=== PATIENT | female | born 1965 | race Caucasian/White ===

== ENCOUNTER 2021-02-24 14:20 | Inpatient (IN) | payer BC ==
[~2021-02-24] VITALS: Ht 154.9 cm; Wt 53.5 kg
[2021-02-24] MEDS ORDERED: NS 1,000 ML IV ONE (15:10)
[2021-02-24] MEDS ORDERED: COMBIVENT RESPIMAT 100-20MCG INHALER 4GM INH ONE (15:10)
[2021-02-24] MEDS ORDERED: methylPREDNISolone 125MG 2ML VIAL IV ONE (15:10)
[2021-02-24] MEDS ORDERED: AZITHROMYCIN INJ 500 MG, VIAL MATE ADAPTER 1 EACH in NS 250 ML IV ONE (15:20)
[2021-02-24] MEDS ORDERED: cefTRIAXone SOD 1 GM in D5W MINI-BAG PLUS 50 ML IV ONE (15:20)
[2021-02-24 15:33] LABS: ABG BASE EXCESS 1.5 (-2.0-2.0); ABG HCO3 23.4 MEQ/L (22.0-26.0); ABG O2 SATURATION 87.4 % (95.0-99.0); ABG PARTIAL PRESSURE CO2 28.9 mmHg (35.0-45.0); ABG PARTIAL PRESSURE O2 50.1 mmHg (75.0-100.0); ABG STANDARD HCO3 25.6 MEQ/L (22.0-26.0); ABG TOTAL CO2 24.3 MEQ/L (22.0-29.0); ABG pH (ARTERIAL) 7.527 UNITS (7.350-7.450)
[2021-02-24] MEDS ORDERED: OMEP-218 PO (16:13)
[2021-02-24] MEDS ORDERED: FAMO40TA3 PO (16:13)
[2021-02-24] MEDS ORDERED: PARO20TA3 PO (16:13)
[2021-02-24] MEDS ORDERED: MONT10TA10 PO (16:13)
[2021-02-24] MEDS ORDERED: LORA-674 PO (16:13)
[2021-02-24] MEDS ORDERED: HOME MED LIST COMPLETE! XX SCH (16:15)
[2021-02-24 16:16] LABS: HEMATOCRIT 35.8 % (36.0-47.0); HEMOGLOBIN 11.8 g/dl (12.0-15.5); MEAN CORPUSCULAR HEMOGLOBIN 32.9 pg (27.0-33.0); MEAN CORPUSCULAR VOLUME 99.7 fl (80.0-96.0); PLATELET COUNT, AUTOMATED 466 10^3/uL (150-450); RED BLOOD COUNT 3.59 10^6/uL (4.00-5.40)
[2021-02-24 16:20] LABS: WHITE BLOOD COUNT 29.1 10^3/uL (4.0-10.0)
[2021-02-24 16:47] LABS: RSV AMPLIFICATION NEGATIVE (NEGATIVE)
[2021-02-24] MEDS: ENOXAPARIN 40MG/0.4ML SYRINGE (J1650 PER 10MG) SC SCH (17:14)
[2021-02-24 17:44] LABS: ATYPICAL LYMPH 9 % (0-5); BASOPHILS 1 % (0-1); LYMPHOCYTES 4 % (16-44); MONOCYTES 10 % (0-5); NEUTROPHILS 71 % (28-66); PLATELET ESTIMATE INCREASED (NORMAL)
--- NOTE | 2021-02-24 17:55 | REPVR ---
PROCEDURE INFORMATION: Exam: CT Chest Without Contrast; Diagnostic Exam date and time: 02/24/2021 4:59 PM Age: 55 years old Clinical indication: Abnormal findings; Abnormal radiologic exam of lung or chest; Additional info: Abnl cxr TECHNIQUE: Imaging protocol: Diagnostic computed tomography of the chest without contrast. 3D rendering (Not supervised by radiologist): MIP and/or 3D reconstructed images were created by the technologist. Radiation optimization: All CT scans at this facility use at least one of these dose optimization techniques: automated exposure control; mA and/or kV adjustment per patient size (includes targeted exams where dose is matched to clinical indication); or iterative reconstruction. COMPARISON: CR CHEST 2 VIEW 02/24/2021 1:05 PM FINDINGS: Lungs: Pulmonary vascular/interstitial pattern does not suggest active pulmonary edema. Lungs demonstrate multifocal airspace infiltrates bilaterally, most confluent involving the right middle lobe and right lower lobe with areas of dense bronchiectasis. Ill-defined nodular opacities are seen in both lungs, suggesting most likely inflammatory or infectious process. Pleural spaces: Small dependent right pleural effusion. No pneumothorax. Heart: No overt cardiac enlargement or abnormal volume of pericardial fluid. Aorta: Mild thoracic aortic ectasia with no focal aneurysm. Lymph nodes: Mildly prominent mediastinal and right hilar lymph nodes measuring up to 16 mm. Bones/joints: Bony structures show no acute fracture or destructive process. Soft tissues: Unremarkable. Other findings: Limited study without IV contrast. IMPRESSION: 1. Multifocal airspace filling process most confluent in the right lower lobe and right middle lobe suggesting multifocal pneumonia bilaterally with reactive lymphadenopathy. 2. Multiple bilateral ill-defined lung nodules, likely infectious or inflammatory, but follow-up will be warranted. Electronically signed by: Miguel A Douglas On 02/24/2021 17:54:45 PM
[2021-02-24 20:09] LABS: ALT/SGPT 129 U/L (12-78); BILIRUBIN,TOTAL 0.4 MG/DL (0.2-1.0); BLOOD UREA NITROGEN 13 MG/DL (7-18); CALCIUM LEVEL 8.4 MG/DL (8.5-10.1); CARBON DIOXIDE LEVEL 24 MEQ/L (21-32); CHLORIDE LEVEL 102 MEQ/L (98-107); CREATININE FOR GFR 0.56 MG/DL (0.55-1.30); GLOMERULAR FILTRATION RATE > 60.0 (>51); GLUCOSE, FASTING 189 MG/DL (70-100); SODIUM LEVEL 134 MEQ/L (136-145)
[2021-02-24] MEDS ORDERED: PARoxetine 20MG TABLET PO SCH (21:00)
[2021-02-24] MEDS: IPRATROPIUM 0.5MG/ALBUTEROL 2.5MG INH SOL UD 3ML (DUONEB) NEB SCH (21:15)
[2021-02-24 22:40] VITALS: BP 102/56
[2021-02-24] MEDS: DOXYCYCLINE HYCLATE 100 MG in D5W MINI-BAG PLUS 100 ML IV SCH (22:59)
[2021-02-24] MEDS: OMEPRAZOLE 20 MG CAP PO SCH (22:59)
[2021-02-25] VITALS (8 sets, daily range): BP systolic 100–123; BP diastolic 55–67
[2021-02-25] MEDS: IPRATROPIUM 0.5MG/ALBUTEROL 2.5MG INH SOL UD 3ML (DUONEB) NEB SCH ×4 (00:05→20:17)
[2021-02-25] MEDS: IPRATROPIUM 0.5MG/ALBUTEROL 2.5MG INH SOL UD 3ML (DUONEB) NEB PRN (04:39)
[2021-02-25] MEDS: cefTRIAXone SOD 2 GM in D5W MINI-BAG PLUS 50 ML IV SCH (06:16)
[2021-02-25 07:38] LABS: BASO % 0.2 % (0.0-1.0); HEMATOCRIT 32.8 % (36.0-47.0); HEMOGLOBIN 10.7 g/dl (12.0-15.5); LYMPH % 12.2 % (24.0-44.0); MEAN CORPUSCULAR HGB CONC 32.6 g/dl (32.0-36.5); MEAN CORPUSCULAR VOLUME 98.2 fl (80.0-96.0); MONO # 1.4 10^3/uL (0.0-0.8); MONO % 5.7 % (2.0-8.0); NEUTROPHILS # 19.9 10^3/uL (1.5-8.5); NEUTROPHILS % 80.6 % (36.0-66.0); PLATELET COUNT, AUTOMATED 456 10^3/uL (150-450); RED BLOOD COUNT 3.34 10^6/uL (4.00-5.40); WHITE BLOOD COUNT 24.7 10^3/uL (4.0-10.0)
[2021-02-25 08:11] LABS: BLOOD UREA NITROGEN 13 MG/DL (7-18); CALCIUM LEVEL 8.7 MG/DL (8.5-10.1); CARBON DIOXIDE LEVEL 24 MEQ/L (21-32); CHLORIDE LEVEL 104 MEQ/L (98-107); CREATININE FOR GFR 0.41 MG/DL (0.55-1.30); GLOMERULAR FILTRATION RATE > 60.0 (>51); GLUCOSE, FASTING 152 MG/DL (70-100); POTASSIUM SERUM 3.8 MEQ/L (3.5-5.1); SODIUM LEVEL 139 MEQ/L (136-145)
[2021-02-25] MEDS ORDERED: methylPREDNISolone 40MG 1ML VIAL IV SCH (09:00)
[2021-02-25] MEDS: OMEPRAZOLE 20 MG CAP PO SCH ×2 (09:28→20:30)
[2021-02-25] MEDS: ENOXAPARIN 40MG/0.4ML SYRINGE (J1650 PER 10MG) SC SCH (09:28)
[2021-02-25] MEDS: DOXYCYCLINE HYCLATE 100 MG in D5W MINI-BAG PLUS 100 ML IV SCH ×2 (09:28→20:30)
--- NOTE | 2021-02-25 11:07 | IPN ---
PROGRESS NOTE DATE: 02/25/2021 SUBJECTIVE: Bette is transferred to PCU. She became hypoxemic overnight. CT scan showed the multifocal pneumonia, multiple bilateral ill-defined lung nodules that will require follow-up. She feels about the same as yesterday. She is still coughing bringing frothy sputum. OBJECTIVE: VITAL SIGNS: Afebrile. Vital signs stable. O2 saturation 89% on 20% Vapotherm. GENERAL APPEARANCE: Alert and conversant. Does not look dyspneic. LUNGS: Expiratory wheezes and scattered rhonchi. HEART: Regular rhythm. ABDOMEN: Soft and nontender. No peripheral edema. LABORATORY DATA: White count is 24,000 on steroids, hemoglobin 10.7, platelets 456,000. Sodium 139, potassium 3.8, BUN 13, creatinine 0.4, glucose 152. Procalcitonin 30.6. IMPRESSION: 1. Multifocal pneumonia treated with Rocephin and doxycycline day #2 of these. Nebulized bronchodilator is ordered. 2. Chronic obstructive pulmonary disease (COPD). She looks emphysematous. We will increase the steroid to 40 mg b.i.d. 3. Pulmonary nodules. She will need outpatient follow-up with repeat CT scanning. 4. History of anxiety/depression. Continue her Paxil. 5. Tobacco abuse. The importance of smoking cessation has been discussed.
--- NOTE | 2021-02-25 20:03 | ECGEPIP ---
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 Order Number: [id number] Reading MD: Noy Kruse Measurements Intervals [place] Rate: 108 P: 65 VA: 116 QRS: 51 QRSD: 80 T: 51 QT: 324 QTc: 434 Interpretive Statements Sinus tachycardia Minimal voltage criteria for LVH, may be normal variant ( Sokolow-Gonzalez ) No prior Electronically Signed on 02-25-2021 20:03:00 EDT by Noy Kruse
[2021-02-25] MEDS: methylPREDNISolone 40MG 1ML VIAL IV SCH (20:29)
[2021-02-25] MEDS: PARoxetine 10MG TABLET PO SCH (21:44)
[2021-02-26] VITALS: BP 124/63
[2021-02-26] MEDS: IPRATROPIUM 0.5MG/ALBUTEROL 2.5MG INH SOL UD 3ML (DUONEB) NEB SCH ×4 (00:56→20:17)
[2021-02-26 04:00] VITALS: BP 110/63
[2021-02-26] MEDS: cefTRIAXone SOD 2 GM in D5W MINI-BAG PLUS 50 ML IV SCH (05:26)
[2021-02-26 06:21] LABS: HEMATOCRIT 32.2 % (36.0-47.0); HEMOGLOBIN 10.4 g/dl (12.0-15.5); MEAN CORPUSCULAR HEMOGLOBIN 32.5 pg (27.0-33.0); MEAN CORPUSCULAR HGB CONC 32.3 g/dl (32.0-36.5); MEAN CORPUSCULAR VOLUME 100.6 fl (80.0-96.0); PLATELET COUNT, AUTOMATED 503 10^3/uL (150-450)
[2021-02-26 06:24] LABS: WHITE BLOOD COUNT 32.9 10^3/uL (4.0-10.0)
[2021-02-26 06:39] LABS: BLOOD UREA NITROGEN 18 MG/DL (7-18); CALCIUM LEVEL 8.6 MG/DL (8.5-10.1); CARBON DIOXIDE LEVEL 25 MEQ/L (21-32); CHLORIDE LEVEL 105 MEQ/L (98-107); CREATININE FOR GFR 0.42 MG/DL (0.55-1.30); GLOMERULAR FILTRATION RATE > 60.0 (>51); GLUCOSE, FASTING 138 MG/DL (70-100); SODIUM LEVEL 138 MEQ/L (136-145)
[2021-02-26 07:00] LABS: LYMPHOCYTES 7 % (16-44); MONOCYTES 1 % (0-5); NEUTROPHILS 92 % (28-66); PLATELET ESTIMATE INCREASED (NORMAL)
[2021-02-26 07:54] VITALS: BP 131/60
[2021-02-26] MEDS: OMEPRAZOLE 20 MG CAP PO SCH ×2 (08:05→20:13)
[2021-02-26] MEDS: ENOXAPARIN 40MG/0.4ML SYRINGE (J1650 PER 10MG) SC SCH (08:05)
[2021-02-26] MEDS: methylPREDNISolone 40MG 1ML VIAL IV SCH ×2 (08:06→20:13)
[2021-02-26] MEDS: DOXYCYCLINE HYCLATE 100 MG in D5W MINI-BAG PLUS 100 ML IV SCH (08:07)
--- NOTE | 2021-02-26 10:46 | IPN ---
PROGRESS NOTE DATE: 02/26/2021 SUBJECTIVE: Bette continues to require Vapotherm. Clinically she has improved. She is less short of breath than her numbers would look and she appears to have COPD long enough that she has accommodated to the limitations of this. Cough is improved. She is not running a fever. No hemoptysis. OBJECTIVE: VITAL SIGNS: Afebrile. Vital signs stable. Saturation 88% to 93%. GENERAL APPEARANCE: Alert and conversant, in no distress. LUNGS: Decreased breath sounds, scattered rhonchi, and wheezes. HEART: Regular rate and rhythm. ABDOMEN: Soft and nontender with no peripheral edema. LABORATORY DATA: White count 32.9 (on steroids), 10.4, platelets 503,000. Sodium 138, potassium 4, BUN 18, creatinine 0.4, glucose 138. IMPRESSION: 1. Multifactorial pneumonia. Continue Rocephin and doxycycline. She is also on IV steroids and nebulized bronchodilator. 2. Chronic obstructive pulmonary disease (COPD). Discussed the case with Dr. Campos who will see the patient in consultation. 3. Pulmonary nodules. Discussed with the patient she has pulmonary nodules on CT scan and this will need follow-up. She would like to establish with a legal aid and we have consulted Dr. Campos, who will see the patient in a nonurgent fashion. The patient is aware of the pulmonary nodules and need for follow-up imaging after resolution of the pneumonia.
[2021-02-26 11:56] VITALS: BP 142/74
[2021-02-26] MEDS: AZITHROMYCIN INJ 500 MG, VIAL MATE ADAPTER 1 EACH in NS 250 ML IV SCH (13:30)
--- NOTE | 2021-02-26 13:40 | CR ---
CONSULTATION DATE: 02/26/2021 HISTORY OF PRESENT ILLNESS: Patient is a 55-year-old female who presents to [facility] ER with a four month history of worsening cough productive of voluminous foamy thin white secretions. Patient states that when the cough started in October she initially attributed it to her allergies and having had to wear a mask for COVID for the pandemic or worsening of her postnasal drip and acid reflux. She has tried [id number] loratadine for allergies as well as Mucinex, but her cough did not improve which prompted her to have a visit at [facility] for further assessment. She states she was prescribed an increased dose of her omeprazole and Singulair with instructions on how to take it at home. However, these medications did not help improve her cough. Furthermore, she started to notice progressive shortness of breath in the past month. She states that she usually likes to sleep flat at night. However, she has started to use 2-3 pillows which she would prop behind her back to help feel relief from the shortness of breath at night. She reports nighttime awakenings from the shortness of breath. She also reports that she is very bothered by the air conditioning at her work which continuously runs at very low temps and states that it worsens her cough. REVIEW OF SYSTEMS: CONSTITUTIONAL: She denies any fever or shaking chills. She states that she has had about a 10 pound unintentional weight loss in the past three weeks. HEENT: She denies any headache, neck pain, decreased hearing, vision changes, hoarseness, sore throat, lumps and bumps in the neck region. She does state that she has postnasal drip. Had three episodes of epistaxis which is able to be controlled by holding her nose. RESPIRATORY: She does have progressive shortness of breath with minimal exertion as well as increased cough productive of frothy white secretions. She denies hemoptysis. CARDIAC: Denies any chest pain but states that she has had one episode of sharp rib pain when she coughed a few weeks ago. Denies any lower extremity edema. Positive for paroxysmal nocturnal dyspnea and orthopnea. GI: Denies any rectal bleeding. She does have chronic constipation. However, she states that she has had some loose formed stools in the past week. Also positive for heartburn as well as loss of appetite. MSK: Denies any joint pain, swelling, or effusion. Denies any redness or erythema to her joints or any trauma. Positive for a few episodes of back pain in the spine area which she describes as sore but has since resolved. NEUROLOGICAL: Denies any seizures, numbness, tingling, tremors, fainting, or dizziness. PSYCH: Appropriate mood and affect. PAST MEDICAL HISTORY: 1. GERD. 2. Anxiety. 3. Seasonal allergies. 4. Longstanding history of smoking. PAST SURGICAL HISTORY: LEEP procedure. SOCIAL HISTORY: Patient started smoking at the age of 13 with one pack per day and quit for about two years but restarted after 05/02/2001. Patient recently cut down to half a pack a day. Denies any alcohol or illicit drug use. Patient lives in a house that is unkempt, and she is contact with cat litter and urine every day. Patient denies owning any pets of her own. 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 She states that she is in daily contact with parolees and people who are on probation. She also states that there is a pest control issue in the building, and pest control sprays down the building weekly for roaches and recently bedbugs. She reports inhalation of those fumes on a weekly basis. Also states that since the COVID pandemic a part of her job is to wipe down equipment at the office. That requires her to use Clorox on a daily basis. She also states that other people in the office use ammonia and Lysol wipes as cleaning agents. FAMILY HISTORY: Dad had CAD and passed from [place] at age 49, hypertension, hyperlipidemia. Mom had diabetes, hypertension, hyperlipidemia. PHYSICAL EXAMINATION: VITAL SIGNS: Temperature 96.9, heart rate 91, respiration 22, blood pressure 142/74. She is on Vapotherm at 30 liters with 70% FiO2 saturating at 90%. GENERAL: Patient is awake, alert, oriented. Appropriate mood and affect. Speech is clear. Able to speak in full sentences without accessory muscle use or retractions. HEENT: Sclera clear, anicteric. Pupils equal, reactive to light. Mucous membranes are moist. No lesions in the oral mucosa. Tongue is midline. NECK/LYMPH: The neck is supple. There is no tracheal deviation or masses. Cannot appreciate any bruits. No significant palpable lymphadenopathy appreciated. CARDIAC: Normal S1 and S2. No significant audible murmur, rubs, or gallops. There is no evidence of JVP. No significant peripheral edema. PULMONARY: She has rales throughout but more prominent in the left mid greater than the right. There is dullness to percussion in the right lung bases greater than the left. Expiratory wheezes appreciated as well. ABDOMEN: Soft, nontender, nondistended. No hepatosplenomegaly or masses palpated. EXTREMITIES: She does not have any joint enlargements, effusions, or fractures. There is no cyanosis, bruising, or calf tenderness. On examination of her fingernails, she does seem to have clubbing. NEUROLOGIC/PSYCH: She has appropriate mood and affect. No history of suicidal ideation or thoughts of self harm. She does have a history of anxiety on Paxil. LAB DATA: WBC 32.9 hgb 2.0 hct 32.2 Plt 503 sodium 138 K 4.0 Cl 105 bicarb 25 BUN 18 Cr 0.42 blood sugar 138 Ca 8,6 Sputum gram stain and culture ordered pending, atypical organisms and fungal titers pending. Blood cx x2 negative IMAGING: CT chest without contrast. Impression: Multifocal air-space filling process most confluent in the right lower lobe and right middle lobe suggesting multifocal pneumonia bilaterally with reactive lymphadenopathy. Multiple bilateral ill-defined lung nodules, likely infectious or inflammatory. ASSESSMENT AND PLAN: This is a 55-year-old female who presents with a four month history of worsening cough productive of foamy thin white secretions as well as progressive shortness of breath in the past month with orthopnea and paroxysmal nocturnal dyspnea. On imaging, patient has multifocal air-space filling processes in the right lower lobe and right middle lobe suggesting multifocal pneumonia as well as lymphadenopathy. Pulmonary was consulted on the service for further management. Currently she is requiring Vapotherm. Currently on 3 liters, 70% FiO2, saturating at 90%. 1. Multifocal pneumonia, likely multifactorial. Patient has multifocal air-space filling processes most confluent in the right lower lobe and right middle lobe. Will order for labs looking for atypical organisms including mycoplasma, Legionella, and chlamydia pneumoniae as well as order for fungal titers including cryptococcus, histoplasmosis, coccidioidomycosis. I will discontinue doxycycline and place her on Zithromax. She can continue with Rocephin. 2. Multiple bilateral ill-defined lung nodules. Patient does have mediastinal adenopathy as well as subcarinal likely reactive from infectious processes; however, cannot rule out malignancy. She will need follow up with Pulmonary on an outpatient basis and require further scans of her chest to follow the adenopathy as well as pulmonary nodules. 3. Longstanding history of smoking. It may be likely that she has an obstructive process from her longstanding smoking history. However, no formal PFTs were found in our records. Patient was educated on the importance of smoking cessation, and she seems to agree. Will benefit from a formal pulmonary function test to assess for obstructive processes on an outpatient basis. Can continue with her IV Solu-Medrol 40 b.i.d. and DuoNebs for now. 4. DVT prophylaxis. Lovenox. 5. Code status: Full. I, Dr. Jeremy Campos, was physically present for the entire interview and examination. My physical exam agrees with the above. I agree with the above assessment and plan. [facility]
[2021-02-26 16:00] VITALS: BP 116/70
[2021-02-26 20:00] VITALS: BP 113/57
[2021-02-26] MEDS: PARoxetine 10MG TABLET PO SCH (20:13)
[2021-02-27] VITALS (21 sets, daily range): BP systolic 115–165; BP diastolic 57–83; O2SAT 88–95
[2021-02-27] MEDS: IPRATROPIUM 0.5MG/ALBUTEROL 2.5MG INH SOL UD 3ML (DUONEB) NEB SCH ×4 (04:35→20:13)
[2021-02-27 04:36] LABS: BASO # 0.1 10^3/uL (0.0-0.2); BASO % 0.2 % (0.0-1.0); HEMATOCRIT 33.1 % (36.0-47.0); HEMOGLOBIN 10.6 g/dl (12.0-15.5); LYMPH # 3.3 10^3/uL (1.5-5.0); LYMPH % 12.8 % (24.0-44.0); MONO # 1.5 10^3/uL (0.0-0.8); NEUTROPHILS # 20.3 10^3/uL (1.5-8.5); NEUTROPHILS % 79.6 % (36.0-66.0); PLATELET COUNT, AUTOMATED 523 10^3/uL (150-450); RED BLOOD COUNT 3.31 10^6/uL (4.00-5.40)
[2021-02-27 05:04] LABS: BLOOD UREA NITROGEN 19 MG/DL (7-18); CALCIUM LEVEL 8.3 MG/DL (8.5-10.1); CARBON DIOXIDE LEVEL 26 MEQ/L (21-32); CHLORIDE LEVEL 108 MEQ/L (98-107); CREATININE FOR GFR 0.46 MG/DL (0.55-1.30); GLOMERULAR FILTRATION RATE > 60.0 (>51); GLUCOSE, FASTING 113 MG/DL (70-100); SODIUM LEVEL 140 MEQ/L (136-145)
[2021-02-27 05:05] LABS: WHITE BLOOD COUNT 25.5 10^3/uL (4.0-10.0)
[2021-02-27] MEDS: cefTRIAXone SOD 2 GM in D5W MINI-BAG PLUS 50 ML IV SCH (06:27)
[2021-02-27] MEDS: OMEPRAZOLE 20 MG CAP PO SCH ×2 (08:06→22:24)
[2021-02-27] MEDS: methylPREDNISolone 40MG 1ML VIAL IV SCH ×2 (08:06→22:24)
[2021-02-27] MEDS: ENOXAPARIN 40MG/0.4ML SYRINGE (J1650 PER 10MG) SC SCH (08:07)
--- NOTE | 2021-02-27 11:18 | IPN ---
PROGRESS NOTE DATE: 02/27/2021 SUBJECTIVE: Bette is about the same as yesterday. She was seen by Pulmonology, I appreciate their input. Lateral move with antibiotics made substituting Azithromycin for Doxycycline, sputum cultures still pending. It is difficult to wean down her oxygen, she is still on Vapotherm at about 25 liter flow rate. OBJECTIVE: GENERAL APPEARANCE: Resting comfortably, looks absolutely fine with no dyspnea. LUNGS: Decreased breath sounds, the lungs sound better than they have in the last few days. HEART: Regular rhythm. ABDOMEN: Soft, nontender. EXTREMITIES: No peripheral edema. IMPRESSION: Multifocal pneumonia and COPD with slow response to her current prescribed therapy. I appreciate Pulmonary input. I suspect she has had longstanding undiagnosed, untreated COPD and baseline hypoxemia is probably to be expected.
--- NOTE | 2021-02-27 11:24 | IPN ---
PULMONARY SERVICE PROGRESS NOTE DATE: 02/26/2021 SUBJECTIVE: The patient is seen in the Progressive Care Unit, this is day #4. She is resting reasonably well at night, appetite is good. Continues to have coughing with mildly purulent sputum production. No hemoptysis, no significant chest pain. OBJECTIVE: VITAL SIGNS: Her temperature is 97, pulse rate is 77, respirations 20, blood pressure is 136/62. INPUT AND OUTPUT: I and O for the past 24 hours: 1911 in and 950 out, since midnight 780 in, 1600 out. GENERAL APPEARANCE: At bedside she is ill-appearing but in no apparent distress. HEENT: Oral mucosa is pink. NECK: Supple. No meningismus. No adenopathy. HEART: Heart sounds are regular without appreciable murmur. LUNGS: Coarse and diminished with crepitant rales in the right base and dullness in the left base. The chest is symmetric and moves symmetrically without accessory muscle engagement. ABDOMEN: Soft. EXTREMITIES: Questionable clubbing changes of the nails. DIAGNOSTIC STUDIES: Imaging studies have shown diffuse multiple focal pneumonia with consolidation in the right lower lobe. The lab studies were reviewed; her sodium is 140, potassium is 5.0, chloride is 108, CO2 26, BUN 19, creatinine 0.46, glucose 113, white cell count is down today at 25.5, hemoglobin is 10.6, hematocrit is 33.1, platelet count 523,000. ASSESSMENTS: 1. Multifocal pneumonia. Patient is on Ceftriaxone and Azithromycin, a gram statin was positive, cultures are pending. She does appear to be responding. 2. Tobacco related lung disease. The patient may have obstructive lung disease from her multi-years of cigarette smoking. She does appear to be responding well to Solumedrol and nebulized therapy. 3. Hypoxemia. Saturations are better today on Vapotherm. Will continue with supplemental oxygen in hopes of weaning the flow rate. I would recommend continuing her current therapy and continue close monitoring given the extent of her infection.
[2021-02-27] MEDS: AZITHROMYCIN INJ 500 MG, VIAL MATE ADAPTER 1 EACH in NS 250 ML IV SCH (12:27)
[2021-02-27 16:08] LABS: MYCOPLASMA PNEUMONIAE IgG 158 U/mL (0-99); MYCOPLASMA PNEUMONIAE IgM <770 U/mL (0-769)
[2021-02-27] MEDS: PARoxetine 10MG TABLET PO SCH (22:24)
[2021-02-28] VITALS (30 sets, daily range): BP systolic 119–160; BP diastolic 59–80; O2SAT 86–95
[2021-02-28] MEDS: IPRATROPIUM 0.5MG/ALBUTEROL 2.5MG INH SOL UD 3ML (DUONEB) NEB SCH ×4 (01:51→19:12)
[2021-02-28] MEDS: cefTRIAXone SOD 2 GM in D5W MINI-BAG PLUS 50 ML IV SCH (05:34)
[2021-02-28 05:53] LABS: BASO # 0.1 10^3/uL (0.0-0.2); BASO % 0.4 % (0.0-1.0); HEMATOCRIT 36.4 % (36.0-47.0); HEMOGLOBIN 11.8 g/dl (12.0-15.5); LYMPH # 3.5 10^3/uL (1.5-5.0); MEAN CORPUSCULAR HGB CONC 32.4 g/dl (32.0-36.5); MEAN CORPUSCULAR VOLUME 101.7 fl (80.0-96.0); MONO % 7.5 % (2.0-8.0); NEUTROPHILS % 73.2 % (36.0-66.0); PLATELET COUNT, AUTOMATED 592 10^3/uL (150-450); RED BLOOD COUNT 3.58 10^6/uL (4.00-5.40)
[2021-02-28 06:17] LABS: BLOOD UREA NITROGEN 19 MG/DL (7-18); CALCIUM LEVEL 8.4 MG/DL (8.5-10.1); CARBON DIOXIDE LEVEL 27 MEQ/L (21-32); CHLORIDE LEVEL 105 MEQ/L (98-107); CREATININE FOR GFR 0.51 MG/DL (0.55-1.30); GLOMERULAR FILTRATION RATE > 60.0 (>51); GLUCOSE, FASTING 128 MG/DL (70-100); POTASSIUM SERUM 4.8 MEQ/L (3.5-5.1); SODIUM LEVEL 138 MEQ/L (136-145)
[2021-02-28 06:46] LABS: MONO # 1.7 10^3/uL (0.0-0.8); WHITE BLOOD COUNT 21.9 10^3/uL (4.0-10.0)
[2021-02-28] MEDS: OMEPRAZOLE 20 MG CAP PO SCH ×2 (08:53→22:42)
[2021-02-28] MEDS: ENOXAPARIN 40MG/0.4ML SYRINGE (J1650 PER 10MG) SC SCH (08:53)
[2021-02-28] MEDS: methylPREDNISolone 40MG 1ML VIAL IV SCH ×2 (08:53→22:42)
--- NOTE | 2021-02-28 11:36 | IPN ---
PROGRESS NOTE DATE: 02/28/2021 SUBJECTIVE: Bette is seen in the PCU. She feels well. She had a sputum culture done. [employer] is malfunctioning and it will not pull up the results. She is on ceftriaxone, azithromycin and methylprednisolone and seemed to be responding slowly to these. I think she has had pneumonia for quite awhile and the recovery is slow. OBJECTIVE: VITAL SIGNS: Stable. O2 saturation 89-90% on 75% Vapotherm. GENERAL APPEARANCE: She looks bright and alert. LUNGS: Scattered rhonchi and wheezes. HEART: Regular rate and rhythm. ABDOMEN: Soft, nontender. EXTREMITIES: No peripheral edema. LABS: White count is 21,000 on steroids. Hemoglobin 11.8. Electrolytes unremarkable. IMPRESSION AND PLAN: 1. Multifocal pneumonia with presumed fairly severe emphysema. I cannot access the sputum culture. [employer] has been malfunctioning this morning. Continue current antibiotic until I can look at this. 2. Presumed COPD being followed by Pulmonary. Progress has been slow but gradual and in the right direction. Prolonged recovery anticipated.
[2021-02-28] MEDS: AZITHROMYCIN INJ 500 MG, VIAL MATE ADAPTER 1 EACH in NS 250 ML IV SCH (12:05)
--- NOTE | 2021-02-28 13:22 | CR ---
PULMONARY SERVICE NOTE DATE: 02/28/2021 SUBJECTIVE: The patient is seen at bedside in the progressive care unit. She is awake, alert, and feeling somewhat better. OBJECTIVE: VITAL SIGNS: Her temperature is 97. No temperatures over 100 in the past 24 hours. Heart rate 80, respirations 24, blood pressure 142/70. She is requiring 75% oxygen via Vapotherm to achieve a saturation of 90%. INTAKE AND OUTPUT: For the past 24 hours, 2398 in and 4300 out. Since midnight, 550 in and 1500 out. GENERAL APPEARANCE: She remains ill-appearing. She is in no emergent or acute distress. HEENT: Her oral mucosa is pink. NECK: Supple. No stridor. HEART: Sounds are regular. LUNGS: Breath sounds diminished with dullness in the right base. There is some crepitance in the left base. Egophony and pectoriloquy is appreciated. The chest is symmetric, increased in AP diameter. ABDOMEN: Soft. EXTREMITIES: Show no significant edema. DIAGNOSTIC STUDIES: Her white cell count is 21.9, hemoglobin 11.8, hematocrit 36.4, platelet count 592,000. Differential white cell count shows 73% neutrophils. Sodium is 138, potassium 4.8, chloride 105, CO2 of 27, BUN 19, creatinine 0.51, glucose 128. On reviewing her initial chest x-ray, there was a consolidated right lower lobe pneumonia and multifocal involvement on the CT scan. She is receiving ceftriaxone and azithromycin. ASSESSMENT/PLAN: The patient has multifocal pneumonia with consolidation of the right lower lobe and while her white cell count is responding, her oxygenation is lagging behind. She remains profoundly hypoxemic despite high flow oxygen via Vapotherm. I will recheck her chest x-ray tomorrow morning with PA and lateral views. She does appear to be responding to antibiotics in that her temperature is down and her white cell count is also improved. She was slow in obtaining optimal care, which may be contributing to the delay in response to therapy.
[2021-02-28] MEDS: PARoxetine 10MG TABLET PO SCH (22:42)
[2021-03-01] VITALS (25 sets, daily range): BP systolic 115–148; BP diastolic 62–78; O2SAT 87–95
[2021-03-01] MEDS: IPRATROPIUM 0.5MG/ALBUTEROL 2.5MG INH SOL UD 3ML (DUONEB) NEB SCH ×4 (01:15→19:25)
[2021-03-01] MEDS: cefTRIAXone SOD 2 GM in D5W MINI-BAG PLUS 50 ML IV SCH (05:29)
[2021-03-01 06:05] LABS: HEMATOCRIT 38.2 % (36.0-47.0); HEMOGLOBIN 12.2 g/dl (12.0-15.5); MEAN CORPUSCULAR HEMOGLOBIN 32.3 pg (27.0-33.0); MEAN CORPUSCULAR HGB CONC 31.9 g/dl (32.0-36.5); MEAN CORPUSCULAR VOLUME 101.1 fl (80.0-96.0); PLATELET COUNT, AUTOMATED 620 10^3/uL (150-450); RED BLOOD COUNT 3.78 10^6/uL (4.00-5.40)
[2021-03-01 06:07] LABS: WHITE BLOOD COUNT 26.2 10^3/uL (4.0-10.0)
[2021-03-01 06:26] LABS: BLOOD UREA NITROGEN 19 MG/DL (7-18); CALCIUM LEVEL 8.5 MG/DL (8.5-10.1); CARBON DIOXIDE LEVEL 29 MEQ/L (21-32); CHLORIDE LEVEL 102 MEQ/L (98-107); CREATININE FOR GFR 0.51 MG/DL (0.55-1.30); GLOMERULAR FILTRATION RATE > 60.0 (>51); GLUCOSE, FASTING 123 MG/DL (70-100); POTASSIUM SERUM 5.1 MEQ/L (3.5-5.1); SODIUM LEVEL 136 MEQ/L (136-145)
[2021-03-01 07:05] LABS: LYMPHOCYTES 15 % (16-44); MONOCYTES 8 % (0-5); MYELOCYTES 1 % (0-0); NEUTROPHILS 75 % (28-66)
[2021-03-01 07:06] LABS: PLATELET ESTIMATE INCREASED (NORMAL)
[2021-03-01 07:08] LABS: SPHEROCYTES 1+
[2021-03-01] MEDS: OMEPRAZOLE 20 MG CAP PO SCH ×2 (09:00→21:29)
[2021-03-01] MEDS: methylPREDNISolone 40MG 1ML VIAL IV SCH ×2 (09:00→21:29)
[2021-03-01] MEDS: ENOXAPARIN 40MG/0.4ML SYRINGE (J1650 PER 10MG) SC SCH (09:01)
--- NOTE | 2021-03-01 09:09 | REP ---
INDICATION: CAP, vapotherm COMPARISON: 02/24/2021 TECHNIQUE: Portable AP view of the chest FINDINGS: Significant right lower lobe opacities remains stable while left lower lobe opacities have increased. Findings are again compatible with multifocal pneumonia. Small amounts of layering effusion cannot be excluded. No pneumothorax. Visualized mediastinum and cardiac silhouette are stable and within normal limits. Skeletal structures are intact. IMPRESSION: Increasing multifocal pneumonia. <Electronically signed by Michael Bills > 03/01/21 0933
--- NOTE | 2021-03-01 11:25 | REP ---
INDICATION: pneumonia COMPARISON: 02/25/2020 TECHNIQUE: Axial noncontrast images from the thoracic inlet to the upper abdomen with coronal and sagittal reformations. This CT examination was performed using the following dose reduction techniques: Automated exposure control, adjustment of mA and/or kv according to the patient's size, and use of iterative reconstruction technique. FINDINGS: Current examination demonstrates mild improvement to the consolidations and scattered alveolar infiltrates. Scattered underlying pulmonary nodules cannot be excluded and may warrant reassessment upon resolution of the multifocal pneumonia. Small right effusion again noted and unchanged. Tracheobronchial tree is patent. Reactive adenopathy noted. No pneumothorax. Stable appearance of the thoracic aorta and heart/pericardium. Normal thyroid gland by noncontrast CT evaluation. Surrounding musculoskeletal structures are stable. IMPRESSION: Mild improvement to the multifocal pneumonia. <Electronically signed by Michael Bills > 03/01/21 1120
--- NOTE | 2021-03-01 12:04 | CCN ---
PULMONARY CRITICAL CARE SERVICE NOTE DATE: 03/01/2021 SUBJECTIVE: The patient is seen in the progressive care unit. This is hospital day #6. She looks and feels somewhat better today than yesterday. She continues to cough with copious sputum production. OBJECTIVE: VITAL SIGNS: Temperature 97. There have been no fevers over the night. Heart rate 93, respirations 24, blood pressure 135/68. INTAKE AND OUTPUT: For the past 24 hours 2125 in and 2050 out. Since midnight 720 in and 600 out. GENERAL APPEARANCE: At bedside, she is ill-appearing. HEENT: Her oral mucosa is pink. NECK: Supple. No meningismus. No adenopathy. HEART: Sounds are regular without appreciable murmur. LUNGS: Breath sounds with crepitant rales in the left base, but improved air exchange. The right base remains dull with tubular sounds and egophony. The chest is symmetric and increased in its AP diameter. ABDOMEN: Soft with intact bowel sounds. EXTREMITIES: Show no significant edema. Nails show borderline clubbing change. DIAGNOSTIC STUDIES: Her white cell count is up to 26.2 with 75% neutrophils. Hemoglobin 12.2, hematocrit 38.2, platelet count 620,000. Sodium is 136, potassium 5.1, chloride 102, CO2 of 29. BUN is 19, creatinine 0.51, glucose 123. I have reviewed her chest x-ray images. The aeration in the right base is actually slightly improved. There are more infiltrates showing now in the left base consistent with that seen initially on the CT scan. IMPRESSION/PLAN: 1. Multifocal pneumonia. The cultures have not been helpful in showing a predominant bacteria. Her white cell count initially had responded, but is now up some. She has not had fever and her chest x-ray to my view looks improved particularly on the right side. 2. Hypoxemia. The patient's oxygen requirement is less. 3. Chronic obstructive pulmonary disease. The patient was an active smoker prior to admission. She does appear to be responding to Solu-Medrol and DuoNebs. Continue with these approaches to therapy and close clinical monitoring.
[2021-03-01] MEDS: AZITHROMYCIN INJ 500 MG, VIAL MATE ADAPTER 1 EACH in NS 250 ML IV SCH (13:22)
--- NOTE | 2021-03-01 14:11 | IPN ---
PROGRESS NOTE DATE: 03/01/2021 SUBJECTIVE: Kathleen seems to have had a bit of a setback. She is more short of breath today, feels worse than she did yesterday. They needed to increase her FiO2. Cough seems to be thicker and she is struggling a little more with her sputum today. PHYSICAL EXAMINATION: VITAL SIGNS: Afebrile. Blood pressure 135/68, oxygen saturation 87-90%; 25 liters of FiO2 is now 75. GENERAL: She is alert and conversant. LUNGS: Rhonchi and decreased breath sounds, particularly at the right base. HEART: Regular rate and rhythm. ABDOMEN: Soft, nontender. EXTREMITIES: No peripheral edema. LABORATORY DATA: White count 26, hemoglobin 12.2, platelets 620. Sodium 136, potassium 5, BUN 19, creatinine 0.5, glucose 123. Sputum culture was nondiagnostic. IMPRESSION: Multifocal pneumonia. She is really not improving significantly. She is on azithromycin (switched from doxycycline by pulmonary) and 2 grams of Rocephin a day. She is on intravenous (IV) steroids. Sputum culture is nondiagnostic. I am getting another CT of the chest to make sure she has not developed something like a peripneumonic effusion. The infiltrates are worse, so will defer to pulmonary. Appreciate Dr. Nielson's help.
[2021-03-01] MEDS: PARoxetine 10MG TABLET PO SCH (21:29)
[2021-03-02] VITALS (9 sets, daily range): BP systolic 118–128; BP diastolic 59–71; O2SAT 89–93
[2021-03-02] MEDS: IPRATROPIUM 0.5MG/ALBUTEROL 2.5MG INH SOL UD 3ML (DUONEB) NEB SCH ×4 (01:06→19:48)
[2021-03-02] MEDS: cefTRIAXone SOD 2 GM in D5W MINI-BAG PLUS 50 ML IV SCH (05:42)
[2021-03-02 06:15] LABS: HEMATOCRIT 42.2 % (36.0-47.0); HEMOGLOBIN 13.6 g/dl (12.0-15.5); MEAN CORPUSCULAR HEMOGLOBIN 32.6 pg (27.0-33.0); MEAN CORPUSCULAR HGB CONC 32.2 g/dl (32.0-36.5); MEAN CORPUSCULAR VOLUME 101.2 fl (80.0-96.0); PLATELET COUNT, AUTOMATED 693 10^3/uL (150-450); RED BLOOD COUNT 4.17 10^6/uL (4.00-5.40)
[2021-03-02 06:26] LABS: WHITE BLOOD COUNT 34.1 10^3/uL (4.0-10.0)
[2021-03-02 06:39] LABS: BLOOD UREA NITROGEN 25 MG/DL (7-18); CALCIUM LEVEL 8.9 MG/DL (8.5-10.1); CARBON DIOXIDE LEVEL 28 MEQ/L (21-32); CHLORIDE LEVEL 101 MEQ/L (98-107); CREATININE FOR GFR 0.65 MG/DL (0.55-1.30); GLOMERULAR FILTRATION RATE > 60.0 (>51); GLUCOSE, FASTING 126 MG/DL (70-100); POTASSIUM SERUM 4.6 MEQ/L (3.5-5.1); SODIUM LEVEL 135 MEQ/L (136-145)
[2021-03-02 07:11] LABS: LYMPHOCYTES 17 % (16-44); METAMYELOCYTES 2 % (0-0); MONOCYTES 5 % (0-5); NEUTROPHILS 76 % (28-66)
[2021-03-02 07:12] LABS: PLATELET ESTIMATE INCREASED (NORMAL)
[2021-03-02] MEDS: ENOXAPARIN 40MG/0.4ML SYRINGE (J1650 PER 10MG) SC SCH (09:35)
[2021-03-02] MEDS: OMEPRAZOLE 20 MG CAP PO SCH ×2 (09:35→21:01)
[2021-03-02] MEDS: methylPREDNISolone 40MG 1ML VIAL IV SCH ×2 (09:36→21:01)
--- NOTE | 2021-03-02 10:02 | IPN ---
PROGRESS NOTE DATE: 03/02/2021 Bette is seen in the progressive care unit (PCU). She is still requiring high flow oxygen. She has multifocal pneumonia. We did a CT yesterday, it is slightly improved, there is no evidence of parapneumonic effusion of any note, just a small right effusion which was unchanged. She has pulmonary nodules that require outpatient followup. She is being seen also by pulmonary, we appreciate their input. She is on azithromycin, day #3, and Rocephin day #6, IV steroid with Solu-Medrol 40 mg twice a day, and nebulizer bronchodilator. Clinically, she feels a little better today, she had a down day yesterday but seems to have bounced back. She is very slow to respond, but she is getting better with the current prescription of antibiotics. PHYSICAL EXAMINATION: Afebrile, blood pressure 120/59, oxygen saturation 90% on 50% FiO2 with Vapotherm. Alert, conversant, no distress. Lungs: Scattered rhonchi particularly on the right side. Heart: Regular rhythm. Abdomen: Soft, nontender. No peripheral edema. LABORATORY DATA: White count 34,000 (increased from yesterday), hemoglobin 13.6, platelets 639, sodium 135, potassium 4.6, BUN 25, creatinine 0.6, glucose 126. IMPRESSION: 1. Multifocal pneumonia. Continue current antibiotic therapy. Progress has been slow but she is getting better. Appreciate pulmonary's involvement. My clinical feeling is her pneumonia has probably been present for a significant period of time and was probably some severe previously undiagnosed underlying emphysema. Her oxygenation has been a challenge. She is getting better but it is a slow progress and I expect she will be in the hospital for several more days.
--- NOTE | 2021-03-02 10:45 | CCN ---
PULMONARY CRITICAL CARE SERVICE NOTE DATE: 03/02/2021 SUBJECTIVE: The patient is seen in the Stepdown Unit feeling and looking somewhat improved this morning. She is less distressed. She is still coughing and her secretions are foamy. OBJECTIVE: VITAL SIGNS: Temperature is 98, this is the maximal temperature for the past 24 hours, pulse rate is 90, respirations 21, blood pressure is 128/59, 50% oxygen is yielding a saturation of 90%. INTAKE AND OUTPUT: I and O for the past 24 hours: 2945 in, 2500 out, since midnight 480 in and 400 out. GENERAL APPEARANCE: She is in less distress. HEENT: Her oral mucosa is pink. NECK: Supple. No meningismus. HEART: Regular without appreciable murmur. LUNGS: Breath sounds are diminished bilaterally. Crepitant rales throughout on the left side. Crepitant rales on the right to mid chest and dullness from mid chest down. There is no tactile fremitus. I was unable to elicit pectoriloquy. Chest is symmetric and increased in AP diameter. There is no accessory muscle use at rest. ABDOMEN: Soft with intact bowel sounds. EXTREMITIES: No significant peripheral edema. DIAGNOSTIC STUDIES: Her sodium is 135, potassium is 4.6, chloride 101, CO2 28, BUN 25, creatinine 0.65, glucose is 126. White cell count is up today at 34.1. The differential white cell count shows 76% neutrophils. Hemoglobin is 13.6, hematocrit is 42.2, platelet count is 693,000. Chest x-ray was compared to priors and does show improvement. CT scan clearly shows improvement bilaterally from the admission scan. On review of microbiology studies her sputum was negative and cultures have been negative x2. On medication review, she is on day #6 of Ceftriaxone, day #5 of Azithromycin, receiving Solu-Medrol 40 mg q. 12 hours. ASSESSMENTS: 1. Hypoxemia. Oxygen requirement is slightly improved today, will continue attempting to reduce oxygen as her saturations allow. 2. Pneumonia, cultures are negative but she is responding to Ceftriaxone and Azithromycin suggesting this is either community acquired infection or a combined community acquired infection an underlying viral infection. 3. Chronic obstructive pulmonary disease. Patient has an extensive smoking history and is responding to inhaled therapy. 4. Leukocytosis. It does not appear to be related to worsening infection but more likely related to steroid exposure and demarginalization. Will continue monitoring. I agree with the sentiment expressed by the primary care service that the patient had been ill for quite some time and is likely to require a more protracted time for recovery.
[2021-03-02] MEDS: AZITHROMYCIN INJ 500 MG, VIAL MATE ADAPTER 1 EACH in NS 250 ML IV SCH (13:06)
[2021-03-02] MEDS ORDERED: SLF 3 ML SYR IV PRN (18:10)
[2021-03-02] MEDS: PARoxetine 10MG TABLET PO SCH (21:00)
[2021-03-02] MEDS: SLF 3 ML SYR IV SCH (21:01)
[2021-03-03] VITALS (18 sets, daily range): BP systolic 104–131; BP diastolic 55–84; O2SAT 85–95
[2021-03-03] MEDS: IPRATROPIUM 0.5MG/ALBUTEROL 2.5MG INH SOL UD 3ML (DUONEB) NEB SCH ×4 (02:30→19:47)
[2021-03-03] MEDS: cefTRIAXone SOD 2 GM in D5W MINI-BAG PLUS 50 ML IV SCH (05:38)
[2021-03-03] MEDS: SLF 3 ML SYR IV SCH ×3 (05:39→20:59)
[2021-03-03 05:54] LABS: BASO # 0.1 10^3/uL (0.0-0.2); BASO % 0.4 % (0.0-1.0); HEMATOCRIT 38.8 % (36.0-47.0); HEMOGLOBIN 12.4 g/dl (12.0-15.5); LYMPH # 4.7 10^3/uL (1.5-5.0); LYMPH % 16.8 % (24.0-44.0); MEAN CORPUSCULAR HEMOGLOBIN 32.4 pg (27.0-33.0); MEAN CORPUSCULAR VOLUME 101.3 fl (80.0-96.0); MONO # 1.9 10^3/uL (0.0-0.8); MONO % 6.7 % (2.0-8.0); NEUTROPHILS # 19.9 10^3/uL (1.5-8.5); NEUTROPHILS % 71.8 % (36.0-66.0); PLATELET COUNT, AUTOMATED 596 10^3/uL (150-450); RED BLOOD COUNT 3.83 10^6/uL (4.00-5.40)
[2021-03-03 05:58] LABS: WHITE BLOOD COUNT 27.7 10^3/uL (4.0-10.0)
[2021-03-03 06:17] LABS: BLOOD UREA NITROGEN 23 MG/DL (7-18); CALCIUM LEVEL 8.6 MG/DL (8.5-10.1); CARBON DIOXIDE LEVEL 27 MEQ/L (21-32); CHLORIDE LEVEL 103 MEQ/L (98-107); CREATININE FOR GFR 0.51 MG/DL (0.55-1.30); GLOMERULAR FILTRATION RATE > 60.0 (>51); GLUCOSE, FASTING 117 MG/DL (70-100); POTASSIUM SERUM 4.9 MEQ/L (3.5-5.1); SODIUM LEVEL 138 MEQ/L (136-145)
--- NOTE | 2021-03-03 11:49 | IPN ---
PULMONARY SERVICE NOTE DATE: 03/03/2021 SUBJECTIVE: The patient is seen in the hospital, this is day #7. She rested poorly through the night but is awake and alert at this point using incentive spirometry and PEP therapy therapy effectively. OBJECTIVE: VITAL SIGNS: Temperature is 97, pulse rate 90, respirations 19, blood pressure is 104/55. INTAKE AND OUTPUT: I and O's for the past 24 hours 1510 in, 3350 out. GENERAL APPEARANCE: At bedside, she is ill-appearing and mildly cachectic. HEENT: Oral mucosa is dry. NECK: Supple without meningismus. No adenocarcinoma. HEART: Heart sounds are regular. LUNGS: Breath sounds are asymmetric with dullness in the right base, present rales in the left base. Air exchange is somewhat improved today. ABDOMEN: Soft, and the extremities show no significant edema. DIAGNOSTIC STUDIES: White cell count is down to 27.7, hemoglobin is 12.4, hematocrit is 38.8, platelet count is 596,000. Sodium is 138, potassium is 4.9, chloride is 103, CO2 27, BUN 27, creatinine 0.8, glucose is 117. On medication review, this is day #6 of Azithromycin, day #6 Rocephin. She is receiving DuoNeb. ASSESSMENTS: 1. Hypoxemia. The patient continues to require high flow oxygen. 2. Pneumonia. Cultures are negative. Patient has had more than five days of Azithromycin, will discontinue this at this point and continue with the Ceftriaxone. 3. Chronic obstructive pulmonary disease. Patient is reasonably compensated on inhaled therapy. 4. Leukocytosis. White cell count is slightly improved today. I an anticipate a prolonged course toward recovery. MTDD
[2021-03-03] MEDS: methylPREDNISolone 40MG 1ML VIAL IV SCH ×2 (12:40→20:58)
[2021-03-03] MEDS: OMEPRAZOLE 20 MG CAP PO SCH ×2 (12:40→20:59)
[2021-03-03] MEDS: ENOXAPARIN 40MG/0.4ML SYRINGE (J1650 PER 10MG) SC SCH (12:41)
[2021-03-03 14:16] LABS: CHLAMYDIA PNEUMONIAE IgM 1:40 (Neg:<1:10)
--- NOTE | 2021-03-03 15:22 | IPNPDOC ---
Subjective Date Seen The patient was seen on 03/03/21. Subjective Chief Complaint/HPI Patient is comfortable in no distress offers no new complaint still on Vapotherm therapy General: Denies: ROS Unobtainable, Chills, Night Sweats, Fatigue, Malaise, Normal Appetite, Other Symptoms Constitutional: Denies: Chills, Fever, Malaise, Night Sweats, Weakness, Fatigue, Weight Loss, Lethargy, Other Eyes: Denies: Pain, Vision change, Conjunctivae inflammation, Eyelid infl ammation, Redness, Other ENT: Denies: Head Aches, Ear Pain, Dysphagia, Sinus Congestion, Post Nasal Drip, Sore Throat, Epistaxis, Other Symptoms Skin: Denies: Rash, Lesions, Jaundice, Bruising, Itching, Dry, Breakdown, Nail Changes, Other Pulmonary: Reports: Other Symptoms (Baseline dyspnea) Cardiovascular: Denies: Chest Pain, Palpitations, Orthopnea, Paroxysmal Noc. Dyspnea, Edema, Lt Headedness, Other Symptoms Gastrointestinal: Denies: Nausea, Vomiting, Abdominal Pain, Diarrhea, Cons tipation, Melena, Hematochezia, Other Symptoms Genitourinary: Denies: Dysuria, Frequency, Incontinence, Hematuria, Retention, Other Symptoms Hematologic: Denies: Bruising, Bleeding Excessively, Petecchia, Purpura, Enlarged Lymph Nodes, Other Hematologic Endocrine: Denies: Polydipsia, Polyphagia, Polyuria, Heat Intolerance, Cold Intolerance, Other Endocrine Sx Musculoskeletal: Denies: Neck Pain, Back Pain, Shoulder Pain, Arm Pain, Hand Pain, Leg Pain, Foot Pain, Joint Pain, Muscle Pain, Spasms, Other Symptoms Neurological: Denies: Weakness, Numbness, Incoordination, Change in speech, Confusion, Seizures, Other Symptoms Psych: Denies: Mood Normal, Anxiety, Depression, Memory Issues, Thoughts of Self Harm, Anger, Thoughts of Harming Other, Other Psych Objective Physical Examination Eye Exam: Positive: PERRLA Neck Exam: Positive: Supple Chest Exam: Positive: Other (Decreased breath sounds bilaterally but no wheezing or rhonchi) Heart Exam: Positive: Rate Normal, Normal S1, Normal S2 Abdomen Exam: Positive: Normal bowel sounds, Soft Extremity Exam: Positive: Other (No clubbing sinus edema) Skin Exam: Positive: Nl turgor and temperature Assessment /Plan Problems (1) CAP (community acquired pneumonia) Status: Acute (2) Hypoxia Status: Acute Plan/VTE VTE Prophylaxis Ordered?: Yes Plan #1: Multifocal community-acquired pneumonia with hypoxia Patient is being followed by pulmonary appreciate the follow-up Patient Zithromax has been DC'd but will continue Rocephin Patient still on developed Vapotherm therapy with oxygen support which probably progressively will wean Might need few more days to progressively wean her off oxygen Continue nebulizer and steroids as per orders Further recommendations as per pulmonary qa consultant VS, I&O, 24H, Fishbone Vital Signs/I&O Vital Signs Date Time Temp Pulse Resp B/P (MAP) Pulse Ox O2 Delivery O2 Flow Rate FiO2 03/03/21 12:00 98.3 104 19 131/77 (95) 95 HVNI-Vapotherm 20.0 50 I&O- Last 24 Hours up to 6 AM 03/03/21 05:59 Intake Total 1990 ml Output Total 4900 ml Balance -2910 ml Laboratory Data 24H LABS Laboratory Tests 2 03/03/21 05:18: Immature Granulocyte % (Auto) 4.3H, Neutrophils (%) (Auto) 71.8H, Lymphocytes (%) (Auto) 16.8L, Monocytes (%) (Auto) 6.7, Eosinophils (%) (Auto) 0.0, Basophils (%) (Auto) 0.4, Neutrophils # (Auto) 19.9H, Lymphocytes # (Auto) 4.7, Monocytes # (Auto) 1.9H, Eosinophils # (Auto) 0.0, Basophils # (Auto) 0.1, Nucleated Red Blood Cells % (auto) 0.0, Anion Gap 8, Glomerular Filtration Rate > 60.0, Calcium Level 8.6 CBC/BMP Laboratory Tests 03/03/21 05:18 Microbiology Microbiology 02/26/21 Gram Stain - Final, Complete 02/26/21 Sputum Culture - Final, Complete 02/24/21 Blood Culture - Final, Complete NO GROWTH AFTER 5 DAYS 02/24/21 Blood Culture - Final, Complete NO GROWTH AFTER 5 DAYS EVA ORTEGA MD Mar 03, 2021 15:22
[2021-03-03] MEDS: PARoxetine 10MG TABLET PO SCH (20:59)
[2021-03-04] VITALS (13 sets, daily range): BP systolic 123–148; BP diastolic 60–71; O2SAT 88–91
[2021-03-04] MEDS: IPRATROPIUM 0.5MG/ALBUTEROL 2.5MG INH SOL UD 3ML (DUONEB) NEB SCH ×4 (02:40→20:09)
[2021-03-04 05:43] LABS: HEMATOCRIT 38.4 % (36.0-47.0); HEMOGLOBIN 12.2 g/dl (12.0-15.5); MEAN CORPUSCULAR HEMOGLOBIN 32.3 pg (27.0-33.0); MEAN CORPUSCULAR HGB CONC 31.8 g/dl (32.0-36.5); MEAN CORPUSCULAR VOLUME 101.6 fl (80.0-96.0); PLATELET COUNT, AUTOMATED 583 10^3/uL (150-450); RED BLOOD COUNT 3.78 10^6/uL (4.00-5.40); WHITE BLOOD COUNT 28.2 10^3/uL (4.0-10.0)
[2021-03-04] MEDS: cefTRIAXone SOD 2 GM in D5W MINI-BAG PLUS 50 ML IV SCH (05:47)
[2021-03-04] MEDS: SLF 3 ML SYR IV SCH ×3 (05:47→21:20)
[2021-03-04 06:23] LABS: ALBUMIN 2.8 GM/DL (3.2-5.2); ALT/SGPT 693 U/L (12-78); BILIRUBIN,TOTAL 0.2 MG/DL (0.2-1.0); BLOOD UREA NITROGEN 29 MG/DL (7-18); CALCIUM LEVEL 8.4 MG/DL (8.5-10.1); CARBON DIOXIDE LEVEL 28 MEQ/L (21-32); CHLORIDE LEVEL 101 MEQ/L (98-107); CREATININE FOR GFR 0.54 MG/DL (0.55-1.30); GLOMERULAR FILTRATION RATE > 60.0 (>51); GLUCOSE, FASTING 119 MG/DL (70-100); POTASSIUM SERUM 4.7 MEQ/L (3.5-5.1); SODIUM LEVEL 135 MEQ/L (136-145); TOTAL PROTEIN 7.2 GM/DL (6.4-8.2)
[2021-03-04] MEDS: ENOXAPARIN 40MG/0.4ML SYRINGE (J1650 PER 10MG) SC SCH (09:07)
[2021-03-04] MEDS: OMEPRAZOLE 20 MG CAP PO SCH ×2 (09:07→21:19)
[2021-03-04] MEDS: methylPREDNISolone 40MG 1ML VIAL IV SCH (09:07)
--- NOTE | 2021-03-04 12:47 | IPNPDOC ---
Subjective Date Seen The patient was seen on 03/04/21. Subjective Chief Complaint/HPI Patient is comfortable slowly tapering her off oxygen she feels much better today General: Denies: ROS Unobtainable, Chills, Night Sweats, Fatigue, Malaise, Normal Appetite, Other Symptoms Constitutional: Denies: Chills, Fever, Malaise, Night Sweats, Weakness, Fatigue, Weight Loss, Lethargy, Other Pulmonary: Reports: Other Symptoms (Mild dyspnea) Cardiovascular: Denies: Chest Pain, Palpitations, Orthopnea, Paroxysmal Noc. Dyspnea, Edema, Lt Headedness, Other Symptoms Gastrointestinal: Denies: Nausea, Vomiting, Abdominal Pain, Diarrhea, Constipation, Melena, Hematochezia, Other Symptoms Musculoskeletal: Denies: Neck Pain, Back Pain, Shoulder Pain, Arm Pain, Hand Pain, Leg Pain, Foot Pain, Joint Pain, Muscle Pain, Spasms, Other Symptoms Objective Physical Examination Neck Exam: Positive: Supple Chest Exam: Positive: Other (Bilateral scattered crackles and decreased breath sounds bilaterally but there is some improved air exchange) Heart Exam: Positive: Rate Normal, Normal S1, Normal S2 Abdomen Exam: Positive: Normal bowel sounds, Soft Extremity Exam: Positive: Other (No clubbing sinus edema) Skin Exam: Positive: Nl turgor and temperature Assessment /Plan Problems (1) CAP (community acquired pneumonia) Status: Acute (2) Hypoxia Status: Acute Plan/VTE VTE Prophylaxis Ordered?: Yes Plan Multifocal community-acquired pneumonia with hypoxia Patient is being followed by pulmonary appreciate the follow-up Patient Zithromax has been DC'd but will continue Rocephin Patient still on developed Vapotherm therapy with oxygen support which probably progressively will wean Continue nebulizer and steroids as per orders We will slowly wean patient off oxygen she is improving very well Pulmonary follow-up appreciated and recommendation has been carried out Patient believe probably will require 3-4 more days before she is discharged home VS, I&O, 24H, Fishbone Vital Signs/I&O Vital Signs Date Time Temp Pulse Resp B/P (MAP) Pulse Ox O2 Delivery O2 Flow Rate FiO2 03/04/21 08:00 98.0 69 18 133/70 (91) 88 HVNI-Vapotherm 20.0 45 I&O- Last 24 Hours up to 6 AM 03/04/21 06:00 Intake Total 890 ml Output Total 1800 ml Balance -910 ml Laboratory Data 24H LABS Laboratory Tests 2 03/04/21 05:24: Nucleated Red Blood Cells % (auto) 0.0, Anion Gap 6L, Glomerular Filtration Rate > 60.0, Calcium Level 8.4L, Total Bilirubin 0.2, Aspartate Amino Transf (AST/SGOT) 197H, Alanine Aminotransferase (ALT/SGPT) 693H, Alkaline Phosphatase 225H, Total Protein 7.2, Albumin 2.8L, Albumin/Globulin Ratio 0.6L CBC/BMP Laboratory Tests 03/04/21 05:24 Microbiology Microbiology 02/26/21 Gram Stain - Final, Complete 02/26/21 Sputum Culture - Final, Complete 02/24/21 Blood Culture - Final, Complete NO GROWTH AFTER 5 DAYS 02/24/21 Blood Culture - Final, Complete NO GROWTH AFTER 5 DAYS EVA ORTEGA MD Mar 04, 2021 12:47
[2021-03-04 15:10] LABS: CRYPTOCOCCUS ANTIBODY SERUM Negative (Neg:<1:2); CRYPTOCOCCUS ANTIGEN SER Negative (Negative); L PNEUMOPHILIA 1-6 IgM < 1:16 (< 1:16); L. PNEUMOPHILA (1,3,4,5,6,8) <0.91 OD ratio (0.00-0.90)
[2021-03-04] MEDS: PARoxetine 10MG TABLET PO SCH (21:19)
[2021-03-04] MEDS: predniSONE 10 MG TAB PO SCH (21:19)
[2021-03-05] VITALS: BP 130/66
[2021-03-05] MEDS: IPRATROPIUM 0.5MG/ALBUTEROL 2.5MG INH SOL UD 3ML (DUONEB) NEB SCH ×4 (02:12→19:45)
[2021-03-05 04:00] VITALS: BP 117/89
[2021-03-05] MEDS: SLF 3 ML SYR IV SCH ×3 (05:37→20:35)
[2021-03-05] MEDS: cefTRIAXone SOD 2 GM in D5W MINI-BAG PLUS 50 ML IV SCH (05:37)
[2021-03-05 08:00] VITALS: BP 132/60
[2021-03-05] MEDS: predniSONE 20 MG TAB PO SCH (08:50)
[2021-03-05] MEDS: OMEPRAZOLE 20 MG CAP PO SCH ×2 (08:50→20:34)
[2021-03-05] MEDS: ENOXAPARIN 40MG/0.4ML SYRINGE (J1650 PER 10MG) SC SCH (08:51)
--- NOTE | 2021-03-05 09:30 | IPN ---
PROGRESS NOTE DATE: 03/04/2021 ADDENDUM IMPRESSION: 2. Pneumonia. Etiology is unclear. She does appear to be responding to ceftriaxone. 3. Chronic obstructive pulmonary disease. Patient is on optimal nebulized therapy. Will change to oral prednisone today. 4. Leukocytosis. Possibly related in part to steroids. Perhaps changing to the oral form will reduce demargination. Edited: adelina 03/05/2021 1438 MTDD
--- NOTE | 2021-03-05 09:57 | IPNPDOC ---
Subjective Date Seen The patient was seen on 03/05/21. Subjective Chief Complaint/HPI Patient feels much better comfortable improved air exchange, has more energy and offers no new complaints General: Denies: ROS Unobtainable, Chills, Night Sweats, Fatigue, Malaise, Normal Appetite, Other Symptoms Constitutional: Denies: Chills, Fever, Malaise, Night Sweats, Weakness, Fatigue, Weight Loss, Lethargy, Other Pulmonary: Denies: Dyspnea, Cough, Pleuritic Chest Pain, Other Symptoms Cardiovascular: Denies: Chest Pain, Palpitations, Orthopnea, Paroxysmal Noc. Dyspnea, Edema, Lt Headedness, Other Symptoms Gastrointestinal: Denies: Nausea, Vomiting, Abdominal Pain, Diarrhea, Constipation, Melena, Hematochezia, Other Symptoms Musculoskeletal: Denies: Neck Pain, Back Pain, Shoulder Pain, Arm Pain, Hand Pain, Leg Pain, Foot Pain, Joint Pain, Muscle Pain, Spasms, Other Symptoms Neurological: Denies: Weakness, Numbness, Incoordination, Change in speech, Confusion, Seizures, Other Symptoms Objective Physical Examination Neck Exam: Positive: Supple Chest Exam: Positive: Other (She has decreased breath sounds bilaterally but air exchange is improving) Heart Exam: Positive: Rate Normal, Normal S1, Normal S2 Abdomen Exam: Positive: Normal bowel sounds, Soft Extremity Exam: Positive: Other (No clubbing sinus edema) Skin Exam: Positive: Nl turgor and temperature Assessment /Plan Problems (1) CAP (community acquired pneumonia) Status: Acute (2) Hypoxia Status: Acute (3) Elevated liver enzymes Status: Acute (4) Leukocytosis Status: Acute Plan/VTE VTE Prophylaxis Ordered?: Yes Plan Multifocal community-acquired pneumonia with hypoxia Patient is being followed by pulmonary appreciate the follow-up Patient Zithromax has been DC'd but will continue Rocephin Patient still on developed Vapotherm therapy with oxygen support which probably progressively will wean Continue nebulizer and steroids as per orders Patient is improving very well slowly tapering her off oxygen still on Vapotherm therapy and hopefully in few days her oxygen be weaned off to nasal cannula. Patient believe probably will require 3-4 more days before she is discharged home as she needs a very slow weaning off of oxygen Regarding patient's elevated liver enzymes most likely secondary to multiple medications including prednisone but will order hepatitis AB and C antibodies as well as liver sonogram, patient is clinically asymptomatic. Also noticed patient has leukocytosis which again most likely secondary to steroids as patient is asymptomatic and afebrile we will continue monitoring CBC VS, I&O, 24H, Fishbone Vital Signs/I&O Vital Signs Date Time Temp Pulse Resp B/P (MAP) Pulse Ox O2 Delivery O2 Flow Rate FiO2 03/05/21 08:00 97.6 89 21 132/60 (84) 89 HVNI-Vapotherm 15.0 40 I&O- Last 24 Hours up to 6 AM 03/05/21 06:00 Intake Total 1800 ml Output Total 2650 ml Balance -850 ml Laboratory Data 24H LABS Laboratory Tests 2 03/05/21 08:20: Microbiology Microbiology 02/26/21 Gram Stain - Final, Complete 02/26/21 Sputum Culture - Final, Complete 02/24/21 Blood Culture - Final, Complete NO GROWTH AFTER 5 DAYS 02/24/21 Blood Culture - Final, Complete NO GROWTH AFTER 5 DAYS EVA ORTEGA MD Mar 05, 2021 09:57
[2021-03-05 11:11] LABS: HEPATITIS A ANTIBODY IGM NEGATIVE (NEGATIVE); HEPATITIS B CORE ANTIBODY IGM NEGATIVE (NEGATIVE); HEPATITIS B SURFACE ANTIBODY NEGATIVE (POSITIVE)
[2021-03-05 12:00] VITALS: BP 142/76
[2021-03-05 16:00] VITALS: BP 140/71
[2021-03-05] MEDS: predniSONE 10 MG TAB PO SCH (20:34)
[2021-03-05] MEDS: PARoxetine 10MG TABLET PO SCH (20:34)
--- NOTE | 2021-03-05 22:33 | IPN ---
PULMONARY PROGRESS NOTE DATE: 03/05/2021 SUBJECTIVE: The patient is seen in the Progressive Care Unit. This is hospital day number nine. OBJECTIVE: PHYSICAL EXAMINATION: VITAL SIGNS: Temperature is 97, T-max in the past 24 hours is 97.6, pulse rate 85, respirations 21, blood pressure 132/60. INTAKE AND OUTPUT: For the past 24 hours 1,260 in, 2,500 out and since midnight 540 in, 1,050 out. GENERAL APPEARANCE: She is in no acute distress, well nourished. HEENT: Oral mucosa is pink. NECK: Supple. No meningismus. HEART: Regular. LUNGS: Breath sounds are asymmetric with dullness in the right base, crepitant rales on the left. CHEST: Symmetric, moving symmetrically. She is actively coughing during the examination. ABDOMEN: Soft. EXTREMITIES: No edema. DIAGNOSTIC STUDIES: None new. MEDICATIONS: Reviewed. 1. She is continuing on Ceftriaxone. 2. She was changed to oral Prednisone yesterday. ASSESSMENT: 1. Acute hypoxemic respiratory failure - The patient is slowly weaning from supplemental oxygen. We will continue to attempt reducing oxygen flow rate and percentage over the course of the day. I have encouraged her to be up and out of bed as much as she is able. 2. Pneumonia unclear etiology based on negative cultures. However she is responding to Ceftriaxone. We will recheck a chest x-ray in the morning. 3. Chronic obstructive pulmonary disease secondary to multiple years of cigarette smoking no wheezing on nebulized therapy. Air flow appears to be at its baseline. She did tolerate a change to oral Prednisone. 4. Leukocytosis - CBC with differential has been reordered for the morning. [facility]
[2021-03-06] VITALS (9 sets, daily range): BP systolic 109–144; BP diastolic 55–76; O2SAT 91–93
[2021-03-06] MEDS: IPRATROPIUM 0.5MG/ALBUTEROL 2.5MG INH SOL UD 3ML (DUONEB) NEB SCH ×4 (01:44→20:13)
[2021-03-06 04:07] LABS: HEPATITIS A IgG TOTAL Negative (Negative); HEPATITIS B CORE ANTIBODY IGG Negative (Negative)
[2021-03-06 05:41] LABS: BASO # 0.1 10^3/uL (0.0-0.2); BASO % 0.2 % (0.0-1.0); EOS % 0.1 % (0.0-3.0); HEMATOCRIT 36.6 % (36.0-47.0); HEMOGLOBIN 11.8 g/dl (12.0-15.5); LYMPH % 15.4 % (24.0-44.0); MEAN CORPUSCULAR HEMOGLOBIN 32.7 pg (27.0-33.0); MEAN CORPUSCULAR HGB CONC 32.2 g/dl (32.0-36.5); MEAN CORPUSCULAR VOLUME 101.4 fl (80.0-96.0); MONO # 2.8 10^3/uL (0.0-0.8); MONO % 8.6 % (2.0-8.0); NEUTROPHILS # 23.9 10^3/uL (1.5-8.5); NEUTROPHILS % 74.3 % (36.0-66.0); PLATELET COUNT, AUTOMATED 493 10^3/uL (150-450); RED BLOOD COUNT 3.61 10^6/uL (4.00-5.40)
[2021-03-06 05:54] LABS: WHITE BLOOD COUNT 32.2 10^3/uL (4.0-10.0)
[2021-03-06 06:13] LABS: ALBUMIN 2.7 GM/DL (3.2-5.2); ALT/SGPT 417 U/L (12-78); BILIRUBIN,TOTAL 0.2 MG/DL (0.2-1.0); BLOOD UREA NITROGEN 23 MG/DL (7-18); CALCIUM LEVEL 8.4 MG/DL (8.5-10.1); CARBON DIOXIDE LEVEL 27 MEQ/L (21-32); CHLORIDE LEVEL 105 MEQ/L (98-107); CREATININE FOR GFR 0.57 MG/DL (0.55-1.30); GLOMERULAR FILTRATION RATE > 60.0 (>51); GLUCOSE, FASTING 98 MG/DL (70-100); POTASSIUM SERUM 4.3 MEQ/L (3.5-5.1); SODIUM LEVEL 139 MEQ/L (136-145); TOTAL PROTEIN 6.7 GM/DL (6.4-8.2)
[2021-03-06] MEDS: cefTRIAXone SOD 2 GM in D5W MINI-BAG PLUS 50 ML IV SCH (07:02)
[2021-03-06] MEDS: SLF 3 ML SYR IV SCH ×3 (07:02→22:29)
--- NOTE | 2021-03-06 08:26 | REP ---
INDICATION: pneumonia COMPARISON: 03/01/2021 TECHNIQUE: PA and lateral. FINDINGS: Bilateral lower lobe opacities and consolidations (right greater than left) are again noted but appear improved when compared to prior examination. No new acute process identified. Visualized portions of the mediastinum and cardiac silhouette are normal. Skeletal structures are intact. IMPRESSION: Improved aeration with slight decrease in bilateral (right greater than left) opacities. <Electronically signed by Michael Bills > 03/06/21 [id number]
[2021-03-06] MEDS: predniSONE 20 MG TAB PO SCH (08:52)
[2021-03-06] MEDS: OMEPRAZOLE 20 MG CAP PO SCH ×2 (08:52→20:57)
[2021-03-06] MEDS: ENOXAPARIN 40MG/0.4ML SYRINGE (J1650 PER 10MG) SC SCH (08:52)
--- NOTE | 2021-03-06 09:50 | REPVR ---
PROCEDURE INFORMATION: Exam: US Abdomen, Limited; Right Upper Quadrant Exam date and time: 03/06/2021 6:46 AM Age: 55 years old Clinical indication: Abnormal findings; Abnormal lab test; Elevated liver enzymes; Additional info: Abnormal liver enzymes TECHNIQUE: Imaging protocol: US abdomen. Real time ultrasound with image documentation. Limited exam focused on the right upper quadrant. COMPARISON: CT Chest without contrast 03/01/2021 10:18 AM FINDINGS: Liver: Normal. No masses. Gallbladder: Distended gallbladder measuring 4 cm transverse dimension. The gallbladder wall measures 2.1 mm. No gallstones. The sonographic Barlow sign is negative. Common bile duct: The common bile duct measures 2.3 mm. No ductal calculi as visualized. Pancreas: Unremarkable pancreas. Right kidney: 1.9 x 1.6 x 1.6 cm lateral right mid renal cyst with mild wall irregularity and a thin septation and posterior wall calcification (digital Doppler artifact). The right kidney measures 11.8 x 5.3 x 4.5 cm. A brief color Doppler examination of the right kidney was performed showing normal color shifts. IMPRESSION: 1. Distended gallbladder measuring 4 cm transverse dimension. 2. Right renal Bosniak 2F cyst. Recommend [address] follow-up. Electronically signed by: Young Strickland On 03/06/2021 09:50:21 AM
--- NOTE | 2021-03-06 10:08 | IPNPDOC ---
Subjective Date Seen The patient was seen on 03/06/21. Subjective Chief Complaint/HPI Patient is comfortable in no distress complaining of some pain on coughing on her right shoulder and right side of the chest wall but only when she coughs but otherwise also complaining that she is bringing out a lot of phlegm and secretions. General: Denies: ROS Unobtainable, Chills, Night Sweats, Fatigue, Malaise, Normal Appetite, Other Symptoms Constitutional: Denies: Chills, Fever, Malaise, Night Sweats, Weakness, Fatigue, Weight Loss, Lethargy, Other Skin: Denies: Rash, Lesions, Jaundice, Bruising, Itching, Dry, Breakdown, Nail Changes, Other Pulmonary: Reports: Other Symptoms (Right shoulder and chest wall pain and cough) Cardiovascular: Denies: Chest Pain, Palpitations, Orthopnea, Paroxysmal Noc. Dyspnea, Edema, Lt Headedness, Other Symptoms Gastrointestinal: Denies: Nausea, Vomiting, Abdominal Pain, Diarrhea, Constipation, Melena, Hematochezia, Other Symptoms Musculoskeletal: Denies: Neck Pain, Back Pain, Shoulder Pain, Arm Pain, Hand Pain, Leg Pain, Foot Pain, Joint Pain, Muscle Pain, Spasms, Other Symptoms Neurological: Denies: Weakness, Numbness, Incoordination, Change in speech, Confusion, Seizures, Other Symptoms Objective Physical Examination Neck Exam: Positive: Supple Chest Exam: Positive: Other (Decreased breath sounds bilaterally scattered crackles also bilaterally) Heart Exam: Positive: Rate Normal, Normal S1, Normal S2 Abdomen Exam: Positive: Normal bowel sounds, Soft Extremity Exam: Positive: Other (No clubbing sinus edema) Skin Exam: Positive: Nl turgor and temperature Assessment /Plan Problems (1) CAP (community acquired pneumonia) Status: Acute (2) Hypoxia Status: Acute (3) Elevated liver enzymes Status: Acute (4) Leukocytosis Status: Acute Plan/VTE VTE Prophylaxis Ordered?: Yes Plan Multifocal community-acquired pneumonia with hypoxia Pulmonary follow-up appreciated Patient Zithromax has been DC'd but will continue Rocephin Patient is slowly weaning off supplemental oxygen and she will be weaned off Vapotherm today Patient has been advised to out of bed as tolerated Chest x-ray for tomorrow morning has been ordered by pulmonary Leukocytosis most likely secondary to steroids, continue p.o. prednisone Continue present care unless otherwise recommended differently by pulmonary VS, I&O, 24H, Kar Vital Signs/I&O Vital Signs Date Time Temp Pulse Resp B/P (MAP) Pulse Ox O2 Delivery O2 Flow Rate FiO2 03/06/21 07:40 89 HVNI-Vapotherm 15.0 40 03/06/21 04:00 98.2 87 22 121/57 (78) I&O- Last 24 Hours up to 6 AM 03/06/21 06:00 Intake Total 1380 ml Output Total 2000 ml Balance -620 ml Laboratory Data 24H LABS Laboratory Tests 2 03/06/21 05:19: Immature Granulocyte % (Auto) 1.4, Neutrophils (%) (Auto) 74.3H, Lymphocytes (%) (Auto) 15.4L, Monocytes (%) (Auto) 8.6H, Eosinophils (%) (Auto) 0.1, Basophils (%) (Auto) 0.2, Neutrophils # (Auto) 23.9H, Lymphocytes # (Auto) 5.0, Monocytes # (Auto) 2.8H, Eosinophils # (Auto) 0.0, Basophils # (Auto) 0.1, Nucleated Red Blood Cells % (auto) 0.0, Anion Gap 7L, Glomerular Filtration Rate > 60.0, Calcium Level 8.4L, Total Bilirubin 0.2, Aspartate Amino Transf (AST/SGOT) 66H, Alanine Aminotransferase (ALT/SGPT) 417H, Alkaline Phosphatase 181H, Total Protein 6.7, Albumin 2.7L, Albumin/Globulin Ratio 0.7L CBC/BMP Laboratory Tests 03/06/21 05:19 Microbiology Microbiology 02/26/21 Gram Stain - Final, Complete 02/26/21 Sputum Culture - Final, Complete 02/24/21 Blood Culture - Final, Complete NO GROWTH AFTER 5 DAYS 02/24/21 Blood Culture - Final, Complete NO GROWTH AFTER 5 DAYS EVA ORTEGA MD Mar 06, 2021 10:08
[2021-03-06 10:27] LABS: MAGNESIUM LEVEL 2.5 MG/DL (1.8-2.4)
--- NOTE | 2021-03-06 18:08 | IPN ---
PROGRESS NOTE DATE: 03/06/2021 Patient was seen and examined this morning during bedside rounds. Patient has been able to be weaned down on the oxygen supplementation. She was weaned from Vapotherm to high flow nasal cannula at 8 liters/minute. Patient does have some desaturation with exertion but states she has been able to get out of bed and go to the bathroom still and move around the room briefly. She does continue to have cough which is productive of loose mucus. She has not had any fevers or chills. She denies any chest pain but she does have some discomfort in the lower parts of her chest. She was trying to do cupping on her own to help with mucus clearance. PHYSICAL EXAMINATION: VITAL SIGNS: Temperature 98.2, pulse 87, respirations 22, blood pressure 121/57, oxygen saturation is 90% on high flow nasal cannula of 15 liters/minute and 40% FiO2. Intake 1.9 liters, output 2.4 liters. GENERAL: Patient is a thin female, is sitting in the bed, appears awake and alert and in no acute distress. She is not using any accessory muscles for respiration and she is speaking in complete sentences. HEENT: Normocephalic, atraumatic. Mucous membranes are moist. Neck is supple, trachea is midline. CARDIAC: Regular rate and rhythm, normal S1 and S2, and no significant murmurs auscultated. PULMONARY: Patient has coarse rhonchi and crackles noted in the bilateral bases. There is also more diminished breath sounds noted on the right base. There is no wheezing noted. ABDOMEN: Soft, nontender, nondistended, no organomegaly. EXTREMITIES: There is no significant lower extremity edema bilaterally. LABORATORY DATA: WBC 32.2, hemoglobin 11.8, platelets are 493. Chemistry: Sodium 139, potassium 4.3, chloride 105, bicarbonate 27, BUN 23, creatinine 0.57, glucose 98. AST/ALT is 66 and 417, alkaline phosphatase is 181, albumin is 2.7. Microbiology: The Chlamydia pneumoniae IgG, IgA, and IgM antibodies were positive. Hepatitis antibodies negative. Legionella IgG positive, IgM negative. Urine Legionella antigen negative. Mycoplasma IgG positive, IgM negative. IMAGING STUDIES: Chest x-ray this morning shows there is bilateral lower lobe opacities and consolidation more on the right side than the left. There is improved aeration noted in the right base compared to previous chest x-ray. Liver ultrasound: There is a distended gallbladder measuring 4 cm. The gallbladder wall is 2.1 mm with no gallstones noted. The common bile duct is 2.3 mm. There is a right renal Bosniak cyst. ASSESSMENT AND PLAN: Ms. Campo is a 55-year-old female with a past medical history of chronic nicotine dependence and suspected chronic obstructive pulmonary disease (COPD) who presented with complaints of worsening cough and shortness of breath with acute hypoxemic respiratory failure in the setting of multifocal community-acquired pneumonia. 1. Community-acquired pneumonia. Patient's Legionella and Mycoplasma were negative. There is evidence of prior infection but no active acute infection currently. Her sputum cultures have also been negative. Her Chlamydia pneumoniae IgG and IgM however were positive and suspect patient had community-acquired pneumonia secondary to Chlamydia pneumoniae. - Patient was initially on azithromycin and ceftriaxone. The azithromycin was discontinued several days ago and the ceftriaxone was continued. With the findings now for atypical pneumonia would switch her to Levaquin which will cover for atypical organisms as well as more general gram-positive and gram-negative organisms including more typical Streptococcus pneumonia. Patient will need likely 2 weeks of antibiotic treatment given the severity of her initial pneumonia. - Patient's repeat chest x-ray today does show some improvement. She does have some ill-defined lung nodules on initial CT and will likely need continued imaging followup to resolution as an outpatient. Her repeat CT of the chest does show some improvement particularly in the denser areas of consolidation but does, as stated, need continuing imaging followup likely after discharge. 2. Chronic obstructive pulmonary disease (COPD) with history of chronic nicotine dependence. - Patient was given corticosteroids for an acute chronic obstructive pulmonary disease (COPD) exacerbation. She was changed to prednisone which she has been tolerating. Will continue to wean down her prednisone and likely change her tomorrow from the 30 mg of prednisone to 20 mg of prednisone and continue to wean down as tolerated. - Patient will need to be started on inhalers prior to discharge likely with a long-acting beta-agonist/long-acting muscarinic antagonist (LAMA/LABA) and she would need nebulized bronchodilators as well upon discharge. - Patient will need to followup with pulmonary as well as an outpatient. 3. Acute hypoxemic respiratory failure secondary to her multifocal pneumonia and chronic obstructive pulmonary disease (COPD) exacerbation. - Patient's oxygenation has been improving. She was on Vapotherm initially but was able to be weaned down to high flow nasal cannula today at 8 liters/minute. - Will continue to wean down her nasal cannula oxygen as tolerated to maintain oxygen saturation above 88%. - Will continue incentive spirometer and out of bed to chair as well as chest physiotherapy (PT) to help with mucus clearance. 4. Deep venous thrombosis (DVT) prophylaxis: Lovenox. 5. CODE STATUS: FULL CODE.
[2021-03-06] MEDS: PARoxetine 10MG TABLET PO SCH (20:57)
[2021-03-06] MEDS: predniSONE 10 MG TAB PO SCH (20:57)
[2021-03-06] MEDS: SODIUM CHLORIDE NASAL 0.65% SPRAY BTL (OCEAN) SCH (20:58)
[2021-03-07] VITALS: BP 136/63
[2021-03-07] MEDS: IPRATROPIUM 0.5MG/ALBUTEROL 2.5MG INH SOL UD 3ML (DUONEB) NEB SCH ×4 (01:08→19:44)
[2021-03-07 04:00] VITALS: BP 137/74
[2021-03-07] MEDS: SLF 3 ML SYR IV SCH ×3 (05:38→21:24)
[2021-03-07 05:55] LABS: BASO # 0.1 10^3/uL (0.0-0.2); BASO % 0.2 % (0.0-1.0); EOS % 0.1 % (0.0-3.0); HEMOGLOBIN 12.2 g/dl (12.0-15.5); LYMPH # 4.4 10^3/uL (1.5-5.0); LYMPH % 14.7 % (24.0-44.0); MEAN CORPUSCULAR HEMOGLOBIN 32.6 pg (27.0-33.0); MEAN CORPUSCULAR HGB CONC 32.1 g/dl (32.0-36.5); MEAN CORPUSCULAR VOLUME 101.6 fl (80.0-96.0); MONO % 10.2 % (2.0-8.0); NEUTROPHILS % 73.5 % (36.0-66.0); PLATELET COUNT, AUTOMATED 450 10^3/uL (150-450); RED BLOOD COUNT 3.74 10^6/uL (4.00-5.40)
[2021-03-07] MEDS ORDERED: LevoFLOXacin 500 MG TABLET PO SCH (06:00)
[2021-03-07 06:21] LABS: ALBUMIN 2.6 GM/DL (3.2-5.2); ALT/SGPT 344 U/L (12-78); BILIRUBIN,TOTAL 0.3 MG/DL (0.2-1.0); BLOOD UREA NITROGEN 24 MG/DL (7-18); CALCIUM LEVEL 8.3 MG/DL (8.5-10.1); CARBON DIOXIDE LEVEL 26 MEQ/L (21-32); CHLORIDE LEVEL 105 MEQ/L (98-107); CREATININE FOR GFR 0.59 MG/DL (0.55-1.30); GLOMERULAR FILTRATION RATE > 60.0 (>51); GLUCOSE, FASTING 116 MG/DL (70-100); POTASSIUM SERUM 4.2 MEQ/L (3.5-5.1); SODIUM LEVEL 137 MEQ/L (136-145); TOTAL PROTEIN 7.5 GM/DL (6.4-8.2)
[2021-03-07 06:22] LABS: MONO # 3.1 10^3/uL (0.0-0.8)
[2021-03-07] MEDS ORDERED: PINK BISMUTH SUSP 524MG/30ML ORAL SYRINGE PO STA (06:35)
[2021-03-07] MEDS ORDERED: CALCIUM CARBONATE 500 MG CHEW U/D PO ONE (06:35)
[2021-03-07 08:00] VITALS: BP 124/65
[2021-03-07] MEDS: ACETYLCYSTEINE 10% 30 ML VIAL INH SCH ×2 (08:00→19:44)
[2021-03-07] MEDS: SODIUM CHLORIDE NASAL 0.65% SPRAY BTL (OCEAN) SCH ×2 (09:00→21:22)
[2021-03-07] MEDS ORDERED: PANTOPRAZOLE 20 MG TAB PO SCH (09:00)
--- NOTE | 2021-03-07 09:00 | REP ---
INDICATION: pna. COMPARISON: PA lateral 03/06/2021, CT 03/01/2021 TECHNIQUE: AP portable seated FINDINGS: Extensive progression of the consolidation in the right base involving middle and lower lobes and much of more are consolidation now in the left lower lobe with some leg ileo infiltrate also suspected with poor visualization of the left heart. Profusion on the right and a small effusion now suspected on the left. Heart size unchanged. No edema. IMPRESSION: Significant progression of the bilateral lower lung zone pneumonias involving right middle and lower lobes, with the greatest increase in opacity in the left lower lobe. Previously it had minor patchy consolidation and there are now also suspected lingular infiltrates as well. Right effusion and suspected small left effusion noted. <Electronically signed by Jay Carreon > 03/07/21 0881
[2021-03-07] MEDS: predniSONE 20 MG TAB PO SCH (09:15)
[2021-03-07] MEDS: OMEPRAZOLE 20 MG CAP PO SCH ×2 (09:15→21:23)
[2021-03-07] MEDS: ENOXAPARIN 40MG/0.4ML SYRINGE (J1650 PER 10MG) SC SCH (09:15)
[2021-03-07] MEDS: MAALOX 30 ML SUSP *UDC PO PRN (09:19)
[2021-03-07] MEDS: GASTROGRAFIN SOLUTION 30ML PO SCH ×3 (10:22→11:23)
--- NOTE | 2021-03-07 10:41 | IPNPDOC ---
Subjective Date Seen The patient was seen on 03/07/21. Subjective Chief Complaint/HPI Patient complaining of right abdomen and right lower chest pain which is sharp comes in on and off and she feels very uncomfortable. No fever shortness of breath or nausea vomiting General: Denies: ROS Unobtainable, Chills, Night Sweats, Fatigue, Malaise, Normal Appetite, Other Symptoms Constitutional: Denies: Chills, Fever, Malaise, Night Sweats, Weakness, Fatigue, Weight Loss, Lethargy, Other Pulmonary: Reports: Other Symptoms (Right lower rib pain) Cardiovascular: Denies: Chest Pain, Palpitations, Orthopnea, Paroxysmal Noc. Dyspnea, Edema, Lt Headedness, Other Symptoms Gastrointestinal: Reports: Other Symptoms (Right upper quadrant pain) Musculoskeletal: Denies: Neck Pain, Back Pain, Shoulder Pain, Arm Pain, Hand Pain, Leg Pain, Foot Pain, Joint Pain, Muscle Pain, Spasms, Other Symptoms Neurological: Denies: Weakness, Numbness, Incoordination, Change in speech, Confusion, Seizures, Other Symptoms Objective Physical Examination Neck Exam: Positive: Supple Chest Exam: Positive: Other (Decreased breath sounds bilaterally scattered crackles also bilaterally) Heart Exam: Positive: Rate Normal, Normal S1, Normal S2 Abdomen Exam: Positive: Other (GI exam is soft nontender no Barlow's sign voluntary guarding anterior abdominal wall muscles, no rebound tenderness bowel sounds present) Extremity Exam: Positive: Other (No clubbing sinus edema) Skin Exam: Positive: Nl turgor and temperature Assessment /Plan Problems (1) CAP (community acquired pneumonia) Status: Acute (2) Hypoxia Status: Acute (3) Elevated liver enzymes Status: Acute (4) Leukocytosis Status: Acute Plan/VTE VTE Prophylaxis Ordered?: Yes Plan #1 Multifocal community-acquired pneumonia with hypoxia #2 right upper quadrant and right lower ribs pleural pain #3 elevated liver enzymes Repeat chest x-ray shows increased progression of bilateral lower lung pneumonia involving right middle and lower lobe as well as increase in opacity in left lower lobe Patient is currently on Rocephin her WBC count is still elevated to 30,000 even though she is afebrile but she does have increasing symptoms of right pleural pain and increased sputum production. I have ordered a CT of the chest as well we will follow up the report but pat ient might benefit from broad-spectrum antibiotics as well as mucolytic agent such as Mucomyst with nebulizer treatment. Currently she is on a nasal cannula 8 L/min with high flow we will continue mon itoring her pulse ox and progressively wean her off oxygen support. Again her WBC count could be secondary to steroids but worsening this infection cannot be ruled out, Regarding her right upper quadrant pain, her LFTs are progressively decreasing and her liver sono showed distended gallbladder but no cholecystitis, patient complained of feeling of right upper quadrant pain on and off with indigestion she is already on a PPI as an Maalox. I have ordered CT of the abdomen and pelvis with double contrast to rule out any GI pathology as well. Continue chest PT and and incentive spirometry as per orders Pulmonary follow-up noted and appreciated VS, I&O, 24H, Fishbone Vital Signs/I&O Vital Signs Date Time Temp Pulse Resp B/P (MAP) Pulse Ox O2 Delivery O2 Flow Rate FiO2 03/07/21 08:00 97.5 129 21 124/65 (84) 89 High Flow Cannula 8.0 03/06/21 08:05 40 I&O- Last 24 Hours up to 6 AM 03/07/21 06:00 Intake Total 1090 ml Output Total 1325 ml Balance -235 ml Laboratory Data 24H LABS Laboratory Tests 2 03/07/21 05:15: Immature Granulocyte % (Auto) 1.3, Neutrophils (%) (Auto) 73.5H, Lymphocytes (%) (Auto) 14.7L, Monocytes (%) (Auto) 10.2H, Eosinophils (%) (Auto) 0.1, Basophils (%) (Auto) 0.2, Neutrophils # (Auto) 22.0H, Lymphocytes # (Auto) 4.4, Monocytes # (Auto) 3.1H, Eosinophils # (Auto) 0.0, Basophils # (Auto) 0.1, Nucleated Red Blood Cells % (auto) 0.0, Anion Gap 6L, Glomerular Filtration Rate > 60.0, Calcium Level 8.3L, Total Bilirubin 0.3, Aspartate Amino Transf (AST/SGOT) 60H, Alanine Aminotransferase (ALT/SGPT) 344H, Alkaline Phosphatase 163H, Total Protein 7.5, Albumin 2.6L, Albumin/Globulin Ratio 0.5L CBC/BMP Laboratory Tests 03/07/21 05:15 Microbiology Microbiology 7/8/21 Gram Stain - Final, Complete 02/26/21 Sputum Culture - Final, Complete EVA ORTEGA MD Mar 07, 2021 10:41
[2021-03-07] MEDS ORDERED: ISOVUE-370 76% 100ML VIAL As Ordered ONE (11:01)
[2021-03-07 12:00] VITALS: BP 121/71
[2021-03-07] MEDS: KETOROLAC TROMETHAMINE 10 MG TAB PO PRN (15:37)
--- NOTE | 2021-03-07 15:45 | IPN ---
PULMONARY PROGRESS NOTE DATE: 03/07/2021 SUBJECTIVE: The patient was seen and examined this morning during bedside rounds. Overnight and this morning, the patient has been noticing complaints of right-sided chest pain which he states has become very constant now. She is unclear if she notices it worse with deep inspiration or coughing but she states that she can get sudden sharp increasing, almost stabbing pain in that right side now. She does continue to have cough which is still productive of mucus and which she states is generally white or clear in color and has not had any hemoptysis. She has not had any fevers or chills overnight. She denies any nausea or vomiting. She did get the percussion vest which she used twice with her nebulized treatments and was able to bring up additional mucus with use of the percussion vest. The patient said she had some shortness of breath with exertion. She is on high flow nasal cannula and she does desaturate with exertion. She is unclear if she notices worsening shortness of breath. OBJECTIVE: Vitals: Temperature 97.5, pulse 93 to 129, respirations 21, blood pressure 124/55, O2 sat 94 to 89% on 8 liters nasal cannula, ins 970 mL, out 1.5 liters. General: The patient is a thin female sitting in bed and awake, alert and oriented x3. She appears somewhat more uncomfortable this morning due to her pain. She is able to speak in complete sentences and is not using any accessory muscles for respiration currently. HEENT: Normocephalic, atraumatic. Moist mucous membranes noted. Neck: Supple. Trachea is midline. No palpable cervical adenopathy. Cardiac: Tachycardic. Regular rate and rhythm. Normal S-1, S-2. No significant murmurs auscultated. Pulmonary: The patient has more diminished breath sounds that are on the right base now and increased crackles and rhonchi noted in the left side. There is no wheezing noted. Abdomen: Soft, nondistended. There is mild tenderness to deep palpitation in the right upper quadrant area. Extremities: There is no significant lower extremity edema bilaterally. LABS: WBC is 30.0. Hemoglobin is12.2. Platelets are 450. Chemistries: Sodium is 137. Potassium is 4.2. Chloride is 105. Bicarb is 20, BUN 24, creatinine 0.59. Glucose is 116. AST and ALT trending down to 60 and 344. IMAGING STUDIES: Chest x-ray this morning shows significant increased air space disease in the left lower lobe. There is also worsening opacification in the right base with suspected right pleural effusion. There is some blunting on the left base with questionable effusion. ASSESSMENT AND PLAN: Miss Campo is a 55-year-old female with a past medical history of chronic nicotine dependence and suspected COPD who presented with complaints of worsening cough and shortness of breath with acute hypoxemic respiratory failure in the setting of community acquired pneumonia. 1. Patient with multifocal community-acquired pneumonia likely secondary to Chlamydia pneumoniae. Her initial sputum cultures were negative and her repeat sputum culture is pending. The patient was having improvement on imaging as well as in her oxygenation. However, her chest x-ray today shows worsening air space disease in the left base as well as increased consolidation on the right and suspected pleural effusion. She is also having worsening chest pain on the right side now which she did not have previously. She does have persistent leukocytosis as well but has been afebrile. There was concern for developing parapneumonic effusion versus empyema given her chest pain and persistent leukocytosis. The patient was on azithromycin and ceftriaxone initially. However, her azithromycin was discontinued several days ago and she was on ceftriaxone only. Her antibiotics were therefore changed yesterday to Levaquin IV for coverage of atypical organisms given the possibility of Chlamydia pneumoniae as well as for more general gram positive and gram negative organisms. We will continue with Levaquin. Would increase her to the 750 mg dosage and we will continue to adjust antibiotics accordingly. We will repeat a procalcitonin today and we will continue to trend to 8 and adjustment of antibiotics. She may need further broadening of antibiotics depending. The patient's chest x-ray this morning shows worsening air space disease. There is suspicion of developing empyema or parapneumonic effusion on the right side. We will get a repeat CT, chest today and if there is evidence of significant pleural effusion on the right, would likely need chest tube drainage and send fluid for diagnostic testing. We will start patient on ketorolac for pain control. She reports difficulty tolerating opioid medications in the past with hypotension and syncope. We will need to monitor her renal function closely with the NSAIDs and consider IV fluid hydration if needed. We will also continue monitoring her liver function with the NSAIDs as well although they have been improving. She is planned for a CT of the abdomen and pelvis as well for further evaluation as her abdominal ultrasound did show distended gallbladder. Suspect she does have some perhaps acalculous cholecystitis from biliary sludge related to her severe respiratory infection and sepsis. 2. COPD with a history of chronic nicotine dependence and acute COPD exacerbation. The patient is on prednisone 20 mg a.m. and 10 mg in the evening. We will continue with her current doses of prednisone for now and would continue to wean down as tolerated. We will continue with nebulized bronchodilators. She is getting chest PT with percussion vests and has had improvement in her mucus clearance. We will continue with the percussion vest and chest PT with her nebulized treatments. 3. Acute hypoxemic respiratory failure in the setting of her multifocal pneumonia and COPD exacerbation. The patient's oxygenation was improving. She was weaned from Vapotherm to high flow nasal cannula and we will continue to wean down her nasal cannula flow rates as tolerated to maintain O2 sat above 80%. Continue incentive spirometer and out of chair as tolerated as well as chest PT and percussion vest for mucus clearance. She may need additional mucolytics if having difficulty in expectorating her mucus. DVT prophylaxis: Lovenox. Code Status: FULL CODE.
--- NOTE | 2021-03-07 15:52 | REP ---
INDICATION: Pleuritic pain , Hypoxia. COMPARISON: Portable chest 03/07/2021, CT 03/01/2021 TECHNIQUE: Bolus of 100 mL Isovue 370 scanning through the chest with coronal and sagittal reconstructions. FINDINGS: Study shows the large confluent airspace opacity in the right lower lobe a progressing with more dense consolidative area. There is also progression in the right middle lobe. Much more extensive right lower lobe and lingular nodular and interstitial opacities now seen in the left lung base. There is a right pleural effusion which extends almost to the apex. It has a lateral to anterolateral component as well and a posterior mid clavicular line thickness of 12 mm at the level of the antony. I do not see significant left effusion. Both lingular segments have nodular and interstitial infiltrates while the remainder of the left upper lobe is relatively spared as is the apical segment of the left lower lobe. The right upper lobe shows consolidation along the major fissure posteriorly. Heart is not enlarged. Trace pericardial thickening or fluid posteriorly. The aorta is without aneurysm or dissection. The main, right and left pulmonary arteries in the mediastinum were without filling defect or vessel cut off. The visible lobar arteries intact. No pathologic sized mediastinal, axillary or supraclavicular adenopathy. Tracheal airway intact. Bony thorax shows no acute change or compression deformity. There are a few Schmorl's nodes evident. Ribs, medial clavicles, that portion of scapulae and humeral heads included were all without acute finding. Please see the CT abdomen report this date for discussion of findings in the upper abdomen IMPRESSION: 1. Worsening bilateral multifocal lobar pneumonia involving significant interval increase in the right lower lobe and lingula, the density of left lower lobe consolidation as well as right middle lobe dense consolidation progressing and involvement of posterior segment right upper lobe. Right effusion has developed. It is thicker in the mid chest posteriorly and lower chest laterally. No left effusion. No other change. <Electronically signed by Jay Carreon > 03/07/21 [id number]
[2021-03-07 16:00] VITALS: BP 120/65
--- NOTE | 2021-03-07 16:17 | REP ---
INDICATION: RUQ pain. COMPARISON: CT chest today, hepatic ultrasound 03/06/2021. TECHNIQUE: Bolus 100 mL Isovue 370 and oral contrast 10 mL Gastrografin in 290 mL flavored water for 2 doses per our bowel contrast protocol coronal and sagittal reconstructions from the axial images provided FINDINGS: CT abdomen: Progressive bilateral lower lobe, right middle lobe and lingular infiltrates with more dense consolidation, the most change on the left and with new right pleural effusion. No hiatal hernia. Diffuse stool throughout the colon greatest in the right transverse colon less than the left and rectosigmoid representing some mild to moderate degree of constipation. No sign of colitis or diverticulitis. No abdominal ascites. Liver, spleen, gallbladder, pancreas and adrenal glands unremarkable. The aorta has atherosclerotic calcifications without aneurysm. No periaortic or other retroperitoneal/mesenteric pathologic sized lymphadenopathy. The small bowel loops are contrast filled without abnormal dilatation or air-fluid levels. There is no perforation or free air in the abdomen or pelvis. The right kidney shows a lateral interpolar region cyst measuring 1.6 x 1.6 x 1.7 cm. There is an inferior small nodular focus, suspected small calcification. The septation on ultrasound not well seen by CT as would be expected. I do not see thickened bey or definite enhancement of the bey. Calcification in renal artery branch in the hilus the noted on the right side. There is no hydronephrosis or solid mass and no other cyst. No definite renal stone. The left kidney shows multiple cysts. The largest is parapelvic at the interpolar region up to 3 cm, the other peripherally in the interpolar region 1.8 cm and no hydronephrosis, stone or solid mass identified. These are simple cysts on the left. No hydroureter or ureteral stone on either side. Lumbar, lower thoracic spine normal for age and without compression deformity or destructive lesions. No spondylolysis or spondylolisthesis. Visualized ribs grossly intact. CT pelvis: Sacrum, SI joints, pelvis and hips with minor degenerative changes and no fracture or destructive lesion. Small bowel loops in the lower abdomen upper pelvis are contrast filled and without abnormal dilatation. The terminal ileum is more fluid-filled and contrast filled but has normal caliber to the ileocecal valve. There is some fatty infiltration of the ileocecal valve which is a normal finding. Some oral contrast has begun to reach the terminal ileum and cecum. Bladder is well filled without mass, wall thickening or definite stone. The uterus tilted towards the left side without enlargement. No adnexal mass or pelvic free fluid. The distal left colon sigmoid and rectum are without acute inflammatory process. No pelvic or inguinal lymphadenopathy. There is no ventral or inguinal hernia. IMPRESSION: 1. Bosniak 2 F renal cyst laterally interpolar region on the right with small calcification and thin bey. Thin septa seen on ultrasound with no thick septae or enhancement of the wall by CT. I recommend six-month follow-up given this lesion category. 2. Simple cysts in the left kidney. No renal stone disease, hydronephrosis, hydroureter, ureteral or bladder stone. 3. The other solid organs in the upper abdomen including liver, spleen, gallbladder, pancreas and adrenal glands unremarkable. Mild to moderate constipation and small bowel loops all unremarkable. 4. Bilateral progressive dense consolidative pneumonia is involving for lobes visible on this study compared to CT chest from 03/01/2021. Please see the chest CT report for details. <Electronically signed by Jay Carreon > 03/07/21 [id number]
[2021-03-07 20:30] VITALS: BP 126/67
[2021-03-07] MEDS: PARoxetine 10MG TABLET PO SCH (21:23)
[2021-03-07] MEDS: predniSONE 10 MG TAB PO SCH (21:23)
[2021-03-08] VITALS: BP 130/75
[2021-03-08] MEDS: KETOROLAC TROMETHAMINE 10 MG TAB PO PRN ×2 (00:02→08:35)
[2021-03-08] MEDS: IPRATROPIUM 0.5MG/ALBUTEROL 2.5MG INH SOL UD 3ML (DUONEB) NEB SCH ×4 (01:10→20:06)
[2021-03-08 04:00] VITALS: BP 138/95
[2021-03-08 05:49] LABS: BASO # 0.1 10^3/uL (0.0-0.2); BASO % 0.2 % (0.0-1.0); EOS % 0.1 % (0.0-3.0); HEMATOCRIT 38.7 % (36.0-47.0); HEMOGLOBIN 12.8 g/dl (12.0-15.5); LYMPH # 3.5 10^3/uL (1.5-5.0); LYMPH % 12.7 % (24.0-44.0); MEAN CORPUSCULAR HEMOGLOBIN 33.1 pg (27.0-33.0); MEAN CORPUSCULAR HGB CONC 33.1 g/dl (32.0-36.5); MONO % 8.6 % (2.0-8.0); NEUTROPHILS # 21.5 10^3/uL (1.5-8.5); NEUTROPHILS % 77.5 % (36.0-66.0); PLATELET COUNT, AUTOMATED 433 10^3/uL (150-450); RED BLOOD COUNT 3.87 10^6/uL (4.00-5.40)
[2021-03-08] MEDS: LevoFLOXacin 750 MG TABLET PO SCH (06:20)
[2021-03-08] MEDS: SLF 3 ML SYR IV SCH ×3 (06:21→21:31)
[2021-03-08 06:23] LABS: ALBUMIN 2.6 GM/DL (3.2-5.2); ALT/SGPT 374 U/L (12-78); BILIRUBIN,TOTAL 0.3 MG/DL (0.2-1.0); BLOOD UREA NITROGEN 24 MG/DL (7-18); CALCIUM LEVEL 8.4 MG/DL (8.5-10.1); CARBON DIOXIDE LEVEL 29 MEQ/L (21-32); CHLORIDE LEVEL 102 MEQ/L (98-107); CREATININE FOR GFR 0.59 MG/DL (0.55-1.30); GLOMERULAR FILTRATION RATE > 60.0 (>51); GLUCOSE, FASTING 111 MG/DL (70-100); POTASSIUM SERUM 4.9 MEQ/L (3.5-5.1); SODIUM LEVEL 136 MEQ/L (136-145); TOTAL PROTEIN 7.1 GM/DL (6.4-8.2)
[2021-03-08 06:32] LABS: MONO # 2.4 10^3/uL (0.0-0.8); WHITE BLOOD COUNT 27.7 10^3/uL (4.0-10.0)
[2021-03-08] MEDS: ACETYLCYSTEINE 10% 30 ML VIAL INH SCH ×2 (07:36→20:06)
[2021-03-08 08:00] VITALS: BP 130/83
[2021-03-08] MEDS: OMEPRAZOLE 20 MG CAP PO SCH ×2 (08:33→21:30)
[2021-03-08] MEDS: predniSONE 20 MG TAB PO SCH (08:33)
[2021-03-08] MEDS: ENOXAPARIN 40MG/0.4ML SYRINGE (J1650 PER 10MG) SC SCH (08:35)
--- NOTE | 2021-03-08 08:35 | REP ---
INDICATION: monitoring progression of r effusion/multifocal pna. COMPARISON: AP chest and CT 03/07/2021, PA lateral 03/06/2021 TECHNIQUE: AP portable upright FINDINGS: Extensive stable consolidation in right mid and lower lung zones. There is some improvement in the new dense consolidation seen on yesterday's CT and portable chest in the left mid and lower lung zones. Persistent patchy infiltrates with the denser opacities now only just above the diaphragm. Small effusion difficult to exclude. No other changes. IMPRESSION: 1. Some significant improvement in the left mid and lower lung zone dense consolidation since yesterday's CT and chest x-ray. The consolidative right mid and lower lung zones are stable. No other interval changes. <Electronically signed by Jay Carreon > 03/08/21 [id number]
[2021-03-08] MEDS: SODIUM CHLORIDE NASAL 0.65% SPRAY BTL (OCEAN) SCH ×2 (08:36→21:30)
[2021-03-08] MEDS ORDERED: NS 500 ML IV ONE (08:55)
[2021-03-08] MEDS ORDERED: PERCOCET 5MG/325MG TAB PO PRN (10:10)
[2021-03-08] MEDS: MAALOX 30 ML SUSP *UDC PO PRN (10:35)
[2021-03-08] MEDS ORDERED: VANCOMYCIN HCL 1,000 MG, VIAL MATE ADAPTER 1 EACH in NS 250 ML IV ONE (11:00)
[2021-03-08] MEDS ORDERED: KETOROLAC 30 MG/ML 1ML VIAL IV PRN (11:05)
[2021-03-08] MEDS: D5W/0.45% SODIUM CHLORIDE 1,000 ML IV SCH (11:36)
--- NOTE | 2021-03-08 13:12 | IPN ---
PULMONARY PROGRESS NOTE DATE: 03/08/2021 SUBJECTIVE: The patient was seen and examined this morning during bedside rounds. The patient was started on Toradol p.o. yesterday for her right-sided chest pain. She does notice some improvement in the pain but is still having the sharp jabbing episodes of pain which still can be severe for her when it occurs. She denies noticing the pain with deep inspiration but does get it occasionally after some coughing. She continued to have cough that she is easily able to expectorate very thin liquid mucus that is white and foamy or clear in color. She denies any fevers or chills overnight. She has not had any nausea or vomiting. The patient does report today that she has noticed coughing after eating and drinking and then generally that is when she is able to bring up a lot of the more liquid foamy mucus. She states even prior to her hospitalization here, she would occasionally have some episodes of intermittent dysphagia and times when she would feel that she was choking or the food had gone down the wrong way. OBJECTIVE: Vitals: Temperature 97.6, pulse 81, respirations 22, blood pressure 138/95, O2 sat 93% on 8 liters nasal cannula, ins 540 mL, out 1.8 liters, net negative 1.2 liters. General: The patient is a thin female sitting in the bed, awake, alert and oriented x3. She appears somewhat more comfortable this morning but does continue to have intermittent right-sided chest pain. She is able to speak in complete sentences currently and is not using any accessory muscles for respiration. HEENT: Normocephalic, atraumatic. Moist mucous membranes noted. Neck: Supple. Trachea is midline. There is no palpable cervical adenopathy. Cardiac: Regular rate and rhythm. Normal S-1, S-2. No significant murmurs auscultated. Pulmonary: There are diminished breath sounds on the right base with a few crackles noted. There are increased crackles and some rhonchi noted on the left side. There is no wheezing noted. Abdomen: Soft, nontender to palpation and nondistended. There is no palpable mass. Extremities: There is no significant lower extremity edema noted bilaterally. LABS: WBC 27.7, hemoglobin 12.8, platelets of 433. Chemistries: Sodium is 136, potassium 4.9. Chloride is 102. Bicarb is 29, BUN 24, creatinine 0.59. Glucose is 111. ALT increased to 106 and 74. Alk phos is 183. Albumin is 2.6. Procalcitonin is 4.73 which has trended down since the admission of 30.69. Micro: Repeat sputum culture yesterday shows on gram stain a few gram positive cocci. IMAGING: Chest x-ray this morning shows improvement in the previous increased opacities in the left mid and lower lobe. There was continued dense consolidation of the right lower lobe with suspected small pleural effusion. CT, chest from yesterday showed compared to the CT from 03-01 on the right side, there is increasing interstitial opacities in the right upper lobe more inferiorly as well as increasing opacities and consolidation in the right middle lobe and increasing, dense consolidation with hepatization of the right lower lobe. There is also suspicion for a more necrotic process in the right lower lobe more superiorly because of the heterogeneity. There is also a very small right pleural effusion noted. In the left lung, there has been increasing alveolar and nodular opacities in the left upper lobe, particularly lingula and in the left lower lobe with more confluent consolidation in the left lower lobe. There is no evidence of pulmonary edema. There is trace pericardial thickening or fluid posteriorly. CT of abdomen and pelvis from 03-07-21 showed Bosniak 2F renal cyst on the right with simple cyst on the left kidney. No hydronephrosis or kidney stone. The gallbladder is reported unremarkable. There is mild to moderate constipation. ASSESSMENT AND PLAN: Miss Campo is a 55-year-old female with a past medical history of nicotine dependence and suspected COPD who presented initially with worsening cough and shortness of breath with an acute hypoxemic respiratory failure in the setting of community acquired pneumonia and COPD exacerbation. 1. Patient with multifocal community-acquired pneumonia. Her initial sputum cultures were negative and her various testing for atypical organisms such as Legionella, Mycoplasma were negative. Her Chlamydia pneumoniae antibody testing was positive. Her repeat sputum culture is showing gram positive cocci. The patient initially was having clinical improvement on imaging. However, yesterday her chest x-ray showed worsening air space disease particularly on the left side and she was also developing new chest pain on the right. There was concern for a possible right parapneumonic pleural effusion or empyema and she did have a CT of the chest done yesterday. On the CT of the chest, there is a small amount of fluid on the right but not enough for any thoracentesis or chest tube placement. Suspect this is a parapneumonic pleural effusion and there is a significant degree of inflammation causing her chest pain currently. She does have on the CT increasing consolidation and hepatization of the right lower lobe in particular and there is concern that she will have worsening necrotic process and potential even cavitation development. Her left lung also showed worsening interstitial infiltrates and nodular areas of consolidation. Her repeat chest x-ray today, however, shows improvement in the left-sided air space disease. Patient was on azithromycin and ceftriaxone initially. Her azithromycin was discontinued after several days and she was on ceftriaxone only. With her positive for Chlamydia pneumoniae, the patient was changed from ceftriaxone to Levaquin. With the worsening air space disease yesterday and the chest pain on the right, her Levaquin IV was increased to 750 mg. This morning with her sputum culture showing gram positive cocci, she will be given an empiric dose of vancomycin and we will also check a MRSA screen. Would follow up her final sputum culture results as well. Patient's repeat procalcitonin has trended down, however, is still elevated. We will continue to trend procalcitonin and if there is further increase, would likely need to further broaden her antibiotics. I will continue with daily chest x-rays. With her right-sided chest pain and concern for worsening necrotic pneumonia on the right side, she will likely need a repeat CT in several days for continued followup. If she does have increasing right pleural effusion, then she would need diagnostic testing and chest tube placement at that time. Patient will start on Toradol p.o. for pain control. She did have some slight improvement. Would change her to IV Toradol and will also add a very low dose of Percocet for improved pain control and she does report a previous history of hypotension and syncope with opioids in the past. The patient will need adequate pain control to help with use of incentive spirometer and to help with her mucus clearance. We will continue patient with the nebulized bronchodilator and with chest PT with percussion vest and Mucomyst to help with her mucus clearance. Patient does also report a previous history of some intermittent episodes of dysphagia and occasionally having some coughing and choking after eating and drinking. Would make her NPO for now pending a speech and swallow evaluation. Patient will be given 500 mL normal saline fluid bolus and then started on maintenance fluids with D5 NS while she is NPO. 2. History of nicotine dependence and suspected COPD with an acute exacerbation. Patient is on prednisone still 20 mg in the a.m. and 10 mg in the evening. We will taper her to 20 mg daily and then we will continue with a slow taper as tolerated. Patient will likely need to be on maintenance inhalers prior to her discharge. 3. Acute hypoxemic respiratory failure in the setting of her multifocal pneumonia and COPD exacerbation. Patient is on high flow nasal cannula oxygen currently. She was previously on Vapotherm but has been weaned down on her oxygen requirements and she is only on 8 liters nasal cannula currently. We will continue to wean down her oxygen supplementation to maintain an O2 sat above 88%. Continue with incentive spirometer and out of bed as tolerated. DVT prophylaxis: Lovenox. Code Status: FULL CODE.
--- NOTE | 2021-03-08 13:21 | IPNPDOC ---
Text Note Date of Service The patient was seen on 03/08/21. NOTE SUBJECTIVE: Ms. Campo continues to have dyspnea and pleuritic chest pain with deep inspiration. She does feel that her energy is improved. No other acute concerns at this time. PHYSICAL EXAMINATION: VITAL SIGNS: see below GENERAL APPEARANCE: Awake, alert, oriented x 3. Thin female sitting up in bed, appears slightly older than stated age, able to speak in full sentences however does have occasional coughing with production of white, thin, frothy sputum HEENT: Atraumatic, normocephalic. Eyes are anicteric. Mucous membranes are pink and moist, there is an area of white ulceration to inside of right cheek that is not painful for patient CARDIOVASCULAR: tachycardic, regular rhythm, no noted murmurs LUNGS: Bilateral crackles and rare occasional expiratory wheeze, decreased air movement noted to right lower base ABDOMEN: Normoactive sounds, soft, nondistended. No rebound tenderness or guarding. EXTREMITIES: No lower extremity edema, no apparent rashes/petechiae. NEUROLOGICAL: Awake, speech is clear, AOx3 LABORATORY STUDIES: See below RADIOLOGY STUDIES: CXR 03/08: IMPRESSION: 1. Some significant improvement in the left mid and lower lung zone dense consolidation since yesterday's CT and chest x-ray. The consolidative right mid and lower lung zones are stable. No other interval changes. CT Chest 03/07 IMPRESSION: 1. Worsening bilateral multifocal lobar pneumonia involving significant interval increase in the right lower lobe and lingula, the density of left lower lobe consolidation as well as right middle lobe dense consolidation progressing and involvement of posterior segment right upper lobe. Right effusion has developed. It is thicker in the mid chest posteriorly and lower chest laterally. No left effusion. No other change. CT Abd/Pelvis 03/07: IMPRESSION: 1. Bosniak 2 F renal cyst laterally interpolar region on the right with small calcification and thin bey. Thin septa seen on ultrasound with no thick septae or enhancement of the wall by CT. I recommend six-month follow-up given this lesion category. 2. Simple cysts in the left kidney. No renal stone disease, hydronephrosis, hydroureter, ureteral or bladder stone. 3. The other solid organs in the upper abdomen including liver, spleen, gallbladder, pancreas and adrenal glands unremarkable. Mild to moderate constipation and small bowel loops all unremarkable. 4. Bilateral progressive dense consolidative pneumonia is involving for lobes visible on this study compared to CT chest from 03/01/2021. Please see the chest CT report for details. ASSESSMENT: Ms. Campo is a 55 year old female admitted for multifocal pneumonia currently on highflow nasal cannula with Pulmonology consulted. She remains on Levaquin and is clinically stable with slightly improve white blood cell count and markedly improve procalcitonin on labs today. PLAN: # Multifocal CAP with hypoxia: C. penumoniae antibodies are positive and sputum culture showed GPC though MRSA today is negative. She received a single dose of Vancomycin pending MRSA studies however at this time will not continue Vancomycin, however if she clinically deteriorates, would have low threshold to resume this. Low threshold to repeat CT chest as patient is at significant risk for developing empyema. Pulmonology is closely following and supports continued antibiotics and attempts to wean off of supplemental oxygen. Meds: Levaquin 750mg daily Toradol for pleuritic chest pain Nebulizers Q6H Prednisone 20mg QAM and 10mg QHS Follow cultures Daily CXR Consider repeat CT if clinically worsening or unchanged by early next week Continue to support SpO2 >92% Pulmonary toilet and chest PT #RUQ pain and LFT abnormalities: These are stable today however have decreased from admission. RUQUS showed distended gallbladder without cholecystitis and CT abd/pelvis was unremarkable for acute liver pathology. Will continue to monitor and would consider obtaining GI consult as outpatient if LFTs remain elevated. Meds: PPI and Maalox PRN # Mood disorder: Continue Paxil DISPOSITION: Continue inpatient admission on Tele DIET: Heart healthy DVT PROPHY: Lovenox CONSULTS: Pulmonology DISCHARGE: Unclear, pending improvement in respiratory status VS,Fishbone, I+O VS, Fishbone, I+O Laboratory Tests 03/08/21 05:35 Vital Signs Date Time Temp Pulse Resp B/P (MAP) Pulse Ox O2 Delivery O2 Flow Rate FiO2 03/08/21 08:00 97.9 111 19 130/83 (99) 89 High Flow Cannula 8.0 03/06/21 08:05 40 I&O- Last 24 Hours up to 6 AM 03/08/21 06:00 Intake Total 640 ml Output Total 2100 ml Balance -1460 ml MARTA CORTEZ MD [facility] Mar 08, 2021 13:21
[2021-03-08 16:00] VITALS: BP 124/83
[2021-03-08 20:00] VITALS: BP 121/70
[2021-03-08] MEDS: predniSONE 10 MG TAB PO SCH (21:30)
[2021-03-08] MEDS: PARoxetine 10MG TABLET PO SCH (21:30)
[2021-03-09] VITALS: BP 110/57
[2021-03-09] MEDS: IPRATROPIUM 0.5MG/ALBUTEROL 2.5MG INH SOL UD 3ML (DUONEB) NEB SCH ×4 (00:52→19:13)
[2021-03-09 04:00] VITALS: BP 124/66
[2021-03-09] MEDS: D5W/0.45% SODIUM CHLORIDE 1,000 ML IV SCH ×2 (04:38→14:52)
[2021-03-09] MEDS: SLF 3 ML SYR IV SCH ×3 (06:15→21:35)
[2021-03-09] MEDS: LevoFLOXacin 750 MG TABLET PO SCH (06:16)
[2021-03-09 07:51] LABS: BASO % 0.2 % (0.0-1.0); HEMATOCRIT 38.5 % (36.0-47.0); HEMOGLOBIN 12.1 g/dl (12.0-15.5); LYMPH # 4.5 10^3/uL (1.5-5.0); LYMPH % 20.9 % (24.0-44.0); MEAN CORPUSCULAR HEMOGLOBIN 32.5 pg (27.0-33.0); MEAN CORPUSCULAR HGB CONC 31.4 g/dl (32.0-36.5); MEAN CORPUSCULAR VOLUME 103.5 fl (80.0-96.0); MONO % 8.8 % (2.0-8.0); NEUTROPHILS # 14.8 10^3/uL (1.5-8.5); NEUTROPHILS % 69.5 % (36.0-66.0); PLATELET COUNT, AUTOMATED 465 10^3/uL (150-450); RED BLOOD COUNT 3.72 10^6/uL (4.00-5.40)
[2021-03-09 07:58] LABS: ALBUMIN 2.4 GM/DL (3.2-5.2); ALT/SGPT 255 U/L (12-78); BILIRUBIN,TOTAL 0.3 MG/DL (0.2-1.0); BLOOD UREA NITROGEN 20 MG/DL (7-18); CALCIUM LEVEL 8.8 MG/DL (8.5-10.1); CARBON DIOXIDE LEVEL 28 MEQ/L (21-32); CHLORIDE LEVEL 105 MEQ/L (98-107); CREATININE FOR GFR 0.59 MG/DL (0.55-1.30); GLOMERULAR FILTRATION RATE > 60.0 (>51); GLUCOSE, FASTING 104 MG/DL (70-100); POTASSIUM SERUM 4.6 MEQ/L (3.5-5.1); SODIUM LEVEL 140 MEQ/L (136-145); TOTAL PROTEIN 7.1 GM/DL (6.4-8.2)
[2021-03-09 08:35] LABS: MONO # 1.9 10^3/uL (0.0-0.8); WHITE BLOOD COUNT 21.3 10^3/uL (4.0-10.0)
--- NOTE | 2021-03-09 08:54 | REP ---
INDICATION: pneumonia. COMPARISON: AP 03/08/2021, 03/07/2021; CT 03/07/2021 TECHNIQUE: PA lateral FINDINGS: Lung torres are well inflated there is extensive consolidation in the right base involving the right lower lobe and middle lobe. Allowing for differences in inflation and technique I do not see significant change in the right lung base. There is some improvement in the patchy infiltrates in the left base progressively over the last 2 studies. Some of the improvement today may be due to better level of inflation. Still patchy infiltrates are suggested. No definite left effusion. Right effusion is suggested. The heart is not enlarged. The aorta and airway were grossly intact. There is no widening of the mediastinum. There are no acute bony abnormalities. No free air under the diaphragm. IMPRESSION: 1. Extensive confluent infiltrates right lower and middle lobes without much change. There is some further mild improvement in the left lower lobe patchy infiltrates. <Electronically signed by Jay Carreon > 03/09/21 [id number]
[2021-03-09] MEDS: predniSONE 20 MG TAB PO SCH (10:07)
[2021-03-09] MEDS: OMEPRAZOLE 20 MG CAP PO SCH ×2 (10:07→21:33)
[2021-03-09] MEDS: SODIUM CHLORIDE NASAL 0.65% SPRAY BTL (OCEAN) SCH ×2 (10:08→21:34)
[2021-03-09] MEDS: ENOXAPARIN 40MG/0.4ML SYRINGE (J1650 PER 10MG) SC SCH (10:08)
[2021-03-09] MEDS: ACETYLCYSTEINE 20% 4 ML VIAL (200MG/ML) INH SCH ×2 (11:28→19:14)
[2021-03-09] MEDS: IPRATROPIUM 0.5MG/ALBUTEROL 2.5MG INH SOL UD 3ML (DUONEB) NEB PRN ×2 (11:28→17:14)
[2021-03-09 12:00] VITALS: BP 128/68
[2021-03-09] MEDS ORDERED: VARIBAR PUDDING 40% w/v 230ML TUBE As Ordered ONE (13:20)
[2021-03-09] MEDS ORDERED: VARIBAR NECTAR 40% w/v 240ML SUSP BTL As Ordered ONE (13:20)
[2021-03-09] MEDS ORDERED: E-Z-PAQUE 96% w/w SUSP 176GM BTL As Ordered ONE (13:21)
[2021-03-09] MEDS ORDERED: BARIUM SULFATE 700 MG TABLET (E-Z-DISK) As Ordered ONE (13:21)
[2021-03-09] MEDS: PERCOCET 5MG/325MG TAB PO PRN (13:26)
--- NOTE | 2021-03-09 13:27 | IPNPDOC ---
Text Note Date of Service The patient was seen on 03/09/21. NOTE SUBJECTIVE: Ms. Campo was able to shower this morning however still requires high flow oxygen. She is pending speech eval for possible aspiration as cause of her multifocal pneumonia. PHYSICAL EXAMINATION: VITAL SIGNS: see below GENERAL APPEARANCE: Awake, alert, oriented x 3. Thin female sitting up in bed, appears slightly older than stated age, able to speak in full sentences however does have occasional coughing with production of white, thin, frothy sputum HEENT: Atraumatic, normocephalic. Eyes are anicteric. Mucous membranes are pink and moist, there is an area of white ulceration to inside of right cheek that is not painful for patient CARDIOVASCULAR: tachycardic, regular rhythm, no noted murmurs LUNGS: Bilateral crackles, decreased air movement noted to right lower base unchanged from prior exam ABDOMEN: Normoactive sounds, soft, nondistended. No rebound tenderness or guarding. EXTREMITIES: No lower extremity edema, no apparent rashes/petechiae. NEUROLOGICAL: Awake, speech is clear, AOx3 LABORATORY STUDIES: See below RADIOLOGY STUDIES: CXR: IMPRESSION: 1. Extensive confluent infiltrates right lower and middle lobes without much change. There is some further mild improvement in the left lower lobe patchy infiltrates. ASSESSMENT: Ms. Campo is a 55 year old female admitted for multifocal pneumonia currently on highflow nasal cannula with Pulmonology consulted. She remains on Levaquin and was started on Vanco with recommendations from Pulmonology yesterday. PLAN: # Multifocal CAP with hypoxia: C. penumoniae antibodies are positive and sputum culture showed GPC though MRSA swab is negative. Will continue Vanco at recommendation of Pulmonology as patient remains on high flow oxygen and CXR looks stable to very minimally improved today. Low threshold to repeat CT chest as patient is at significant risk for developing empyema however will likely obtain repeat CT chest on 03/11 to eval for interval changes and progress. Will start taper of prednisone and will remove 10mg dosing this evening. Pulmonology is closely following and supports continued antibiotics and attempts to wean off of supplemental oxygen. Meds: Levaquin 750mg daily Vanco per Pharmacy dosing Toradol scheduled for pleuritic chest pain Nebulizers Q6H Prednisone 20mg QAM Mucomyst Follow cultures Daily CXR Consider repeat CT if clinically worsening Continue to support SpO2 >92% Pulmonary toilet and chest PT #RUQ pain and LFT abnormalities: These are stable today however have decreased from admission. RUQUS showed distended gallbladder without cholecystitis and CT abd/pelvis was unremarkable for acute liver pathology. Will continue to monitor and would consider obtaining GI consult as outpatient if LFTs remain elevated. Meds: PPI and Maalox PRN # Mood disorder: Continue Paxil DISPOSITION: Continue inpatient admission on Tele DIET: Heart healthy DVT PROPHY: Lovenox CONSULTS: Pulmonology DISCHARGE: Unclear, pending improvement in respiratory status VS,Fishbone, I+O VS, Fishbone, I+O Laboratory Tests 03/09/21 04:52 Vital Signs Date Time Temp Pulse Resp B/P (MAP) Pulse Ox O2 Delivery O2 Flow Rate FiO2 03/09/21 12:00 97.5 99 20 128/68 (88) 90 High Flow Cannula 8.0 03/06/21 08:05 40 I&O- Last 24 Hours up to 6 AM 03/09/21 06:00 Intake Total 1125 ml Output Total 1200 ml Balance -75 ml MARTA CORTEZ MD [facility] Mar 09, 2021 13:27
--- NOTE | 2021-03-09 14:36 | IPN ---
PROGRESS NOTE DATE: 03/09/2021 SUBJECTIVE: The patient was seen and examined this morning during bedside rounds. This morning the patient continues to notice improvement in her right-sided chest pain. She does still have pain with very quick deep inspiration and continues to report stabbing pain in the right lower chest anteriorly. In general she has been able to move around a bit more as her pain is better controlled. She did tolerate the half a tablet of Percocet well with no adverse side effects. She does continue to have a cough productive of very thin liquid mucus that can be white and foamy and occasionally yellowish in color. She has not had any hemoptysis. She does notice sometimes when blowing her nose that she will have some dried blood afterwards. She is still on nasal cannula oxygen high flow and overnight did have some improvement with less desaturation than previously. She has not had any fevers or chills this morning. She denies any abdominal pain. No nausea or vomiting. She is still NPO at this time, awaiting her speech and swallow evaluation. OBJECTIVE: Vital signs: Temperature 97.2, pulse 79, respirations 20, blood pressure 124/66, O2 saturation 93% on 8 liters nasal cannula. Input 895 mL, output 1.6 liters. Net negative 755 mL. General: The patient is a thin female sitting in bed, awake, alert and oriented times three. She is speaking in complete sentences and is not using accessory muscles for respirations currently. HEENT: Normocephalic, atraumatic. Moist mucous membranes noted. Neck is supple, trachea is midline. There is no palpable cervical adenopathy. Cardiac: Regular rate and rhythm, normal S1, S2 with no significant murmurs appreciated. Pulmonary: Diminished breath sounds in the right base with a few crackles noted. There are more crackles and some occasional rhonchi noted on the left side. There is no wheezing noted. Abdomen: Soft, nontender, nondistended. There is no palpable mass. Extremities: There is no significant lower extremity edema noted bilaterally. LABS: WBC trending down to 21.3, hemoglobin 12.1, platelets 465. Chemistry: Sodium is 140, potassium 4.6, chloride is 105, bicarb is 28, BUN 20, creatinine 0.59, glucose 104. Calcium is 8.8. Albumin is 2.4. AST and ALT trending down to 34 and 255. Alkaline phosphatase is 177. Procalcitonin is still pending. Microbiology: Sputum culture is still pending. MRSA screen is negative. IMAGING: Chest x-ray this morning shows continued slight improvement in the left basilar opacities. There is persistent consolidation and opacity in the right mid and right lower lobe with suspected small pleural effusion on the right. There is questionable mild improvement in the density of the opacity on the right side. There is questionable mild pulmonary vascular congestion noted. ASSESSMENT AND PLAN: Ms. Campo is a 55-year-old female with a past medical history of nicotine dependence and suspected COPD who presented with worsening cough and shortness of breath with an acute hypoxemic respiratory failure in the setting of community-acquired pneumonia and possible COPD exacerbation. 1. Multifocal community-acquired pneumonia. Initial sputum cultures were negative and testing for legionella and mycoplasma was negative. Her chlamydia and pneumonia antibody testing was positive. Repeat sputum culture shows gram-positive cocci although final results are still pending. The patient initially had some clinical improvement in her oxygenation as well as some improvement on imaging. She started developing, however, new pleuritic chest pain on the right side and a repeat CT of the chest had shown worsening consolidation with hepatization of her lung on the right as well as increased areas of consolidation and interstitial infiltrate on the left lung. There was concern for a possible aspiration process given her history contributing as well as concern that she may have development of a peripneumonic pleural effusion or empyema. There was a small amount of fluid on the right side not clinically significant to allow for any drainage. The patient's repeat chest x-ray does show continued improvement in left-sided airspace disease with increasing chest PT and with her remaining NPO. She did also have adjustments in her antibiotics which is likely also contributing to improvement in her left-sided airspace disease as well as in her leukocytosis that was fairly persistent and elevated. The patient is currently on Levaquin 750 mg and she did receive a dose of Vancomycin yesterday. Her MRSA screen was negative. However with the continued improvement in her white count and with the sputum culture still pending, would give additional Vancomycin for today and follow up final results of her sputum culture. We will continue to trend her procalcitonin. It was significantly elevated on admission and has been trending down but we will follow up the repeat level today. We will continue with daily chest x-rays. As she does continue to have pleuritic pain on the right side, we will have to monitor closely for development of worsening effusion or possibly empyema with her severe necrotic pneumonia on the right. Will likely need a repeat CT chest on Tuesday for further evaluation. If there is increasing effusion, then she would need diagnostic drainage and chest tube placement at that time. The patient has had improvement in her pain control. She did tolerate the half dose of Percocet so we will increase her to one tablet of Percocet p.r.n. She is on IV Toradol which we will make standing for 24 hours before discontinuing and continuing with Percocet for pain control. We will continue with nebulized bronchodilators and chest PT with a percussion vest and Mucomyst for mucus clearance. The patient is NPO for now pending evaluation by Speech and Swallow. She is on maintenance fluids with D5 half NS which we will change to 50 mL an hour. 2. History of nicotine dependence and suspected COPD with acute exacerbation. The patient is on Prednisone still which we will taper down to 20 mg daily today and continue with slow taper as tolerated. The patient will need to be started on maintenance inhalers prior to discharge. The patient has done well with smoking cessation currently while inpatient. 3. Acute hypoxic respiratory failure in the setting of her multifocal pneumonia and COPD exacerbation. The patient is on high flow nasal cannula oxygen. She previously was on Vapotherm but has been weaned down to high flow and continues to have improvement in her oxygenation. We will continue to wean down her flow rates as tolerated to maintain an O2 saturation above 88%. Continue incentive spirometer and out of bed as tolerated. 4. DVT prophylaxis with Lovenox. 5. CODE STATUS: FULL CODE.
[2021-03-09] MEDS ORDERED: VANCOMYCIN HCL 1,000 MG, VIAL MATE ADAPTER 1 EACH in NS 250 ML IV ONE (15:00)
[2021-03-09 16:00] VITALS: BP 112/60
--- NOTE | 2021-03-09 17:30 | REP ---
INDICATION: suspected aspiration. COMPARISON: NONE TECHNIQUE: The procedure was performed under the direct supervision of . The procedure was performed with Gissel Mojica from speech pathology present. 2.4 minutes of fluoroscopy time was utilized for this procedure. FINDINGS: The patient was assessed upon entering the room. The patient is in an upright position and conversing appropriately. A video pharyngo esophagram was then performed. Thin consistency: The patient was instructed to take a swallow from the cup. The patient was able to initiate Deglutition without delay. The patient cleared the bolus immediately with no vallecular pooling. Passavant's pad gloria and shifted anteriorly normally with no nasopharyngeal aspiration. There is no evidence of laryngeal penetration or aspiration. The patient was then instructed to drink from the cup in succession. Again, there is no evidence of laryngeal penetration or aspiration. The patient was then instructed to drink through a straw. The straw hindered the tongues ability to control the bolus. There is laryngeal penetration. Literberry consistency: The patient was instructed to take a swallow from the cup. The patient manipulated the bolus well. Passavant's pad gloria and shifted anteriorly normally with no nasopharyngeal aspiration. There is laryngeal penetration. Honey consistency: The patient was instructed to take a drink from the cup.. This slight delay caused pooling in the vallecula but then was completely cleared on a 2nd swallow. Passavant's pad gloria and shifted anteriorly normally with no nasopharyngeal aspiration. There is laryngeal penetration. Pudding consistency: The patient was able to form a bolus by cupping of the tongue and manipulated the bolus well. The patient cleared the bolus immediately. Passavant's pad gloria and shifted anteriorly normally with no nasopharyngeal aspiration. Soft consistency: The patient was able to form a bolus by cupping of the tongue and manipulated the bolus well. The patient cleared the bolus immediately. Passavant's pad gloria and shifted anteriorly normally with no nasopharyngeal aspiration. Mixed fruit consistency: The patient was able to form a bolus by cupping of the tongue and manipulated the bolus well. The patient clear the bolus immediately. Passavant's pad gloria and shifted anteriorly normally with no nasopharyngeal aspiration. Solid consistency: The patient was able to form a bolus by cupping of the tongue and manipulated the bolus well. The patient clear the bolus immediately. Passavant's pad gloria and shifted anteriorly normally with no nasopharyngeal aspiration. The patient was then given a barium pill with tap water. The patient but the pill in her mouth and then took a bolus of water from a cup. The barium pill passed without delay. A detailed report of this examination will be provided by speech pathology. IMPRESSION: With thin barium, through the straw, the straw hinders the tongues ability to control the bolus. There is laryngeal penetration. With nectar and honey consistency barium there is laryngeal penetration. A detailed report of this examination will be provided by speech pathology. IMPRESSION: A detailed report of this examination will be provided by speech pathology. <Electronically signed by Paulie Alvarez > 03/09/21 [id number] <Electronically signed by Leroy Page > 03/09/21 0014
[2021-03-09 20:00] VITALS: BP 122/69
[2021-03-09] MEDS: PARoxetine 10MG TABLET PO SCH (21:33)
[2021-03-09] MEDS: VANCOMYCIN HCL 750 MG, VIAL MATE ADAPTER 1 EACH in NS 250 ML IV SCH (21:33)
[2021-03-10] VITALS (16 sets, daily range): BP systolic 115–136; BP diastolic 59–66; O2SAT 87–94
[2021-03-10] MEDS: PERCOCET 5MG/325MG TAB PO PRN ×4 (00:08→23:53)
[2021-03-10] MEDS: IPRATROPIUM 0.5MG/ALBUTEROL 2.5MG INH SOL UD 3ML (DUONEB) NEB SCH ×4 (01:32→19:39)
[2021-03-10] MEDS: VANCOMYCIN HCL 750 MG, VIAL MATE ADAPTER 1 EACH in NS 250 ML IV SCH (05:32)
[2021-03-10] MEDS: LevoFLOXacin 750 MG TABLET PO SCH (05:32)
[2021-03-10] MEDS: SLF 3 ML SYR IV SCH ×3 (05:33→20:48)
[2021-03-10] MEDS: ACETYLCYSTEINE 20% 4 ML VIAL (200MG/ML) INH SCH ×2 (07:10→19:40)
[2021-03-10] MEDS: ENOXAPARIN 40MG/0.4ML SYRINGE (J1650 PER 10MG) SC SCH (09:18)
[2021-03-10] MEDS: predniSONE 20 MG TAB PO SCH (09:18)
[2021-03-10] MEDS: OMEPRAZOLE 20 MG CAP PO SCH ×2 (09:19→20:48)
[2021-03-10] MEDS: SODIUM CHLORIDE NASAL 0.65% SPRAY BTL (OCEAN) SCH ×2 (09:19→20:49)
[2021-03-10] MEDS: FLUCONAZOLE 100 MG TAB PO SCH (09:19)
[2021-03-10 09:31] LABS: HEMATOCRIT 35.7 % (36.0-47.0); HEMOGLOBIN 11.3 g/dl (12.0-15.5); MEAN CORPUSCULAR HEMOGLOBIN 32.5 pg (27.0-33.0); MEAN CORPUSCULAR HGB CONC 31.7 g/dl (32.0-36.5); MEAN CORPUSCULAR VOLUME 102.6 fl (80.0-96.0); PLATELET COUNT, AUTOMATED 401 10^3/uL (150-450); RED BLOOD COUNT 3.48 10^6/uL (4.00-5.40)
[2021-03-10 09:34] LABS: WHITE BLOOD COUNT 20.1 10^3/uL (4.0-10.0)
[2021-03-10 10:02] LABS: EOSINOPHILS 4 % (0-3); LYMPHOCYTES 24 % (16-44); MONOCYTES 13 % (0-5); NEUTROPHILS 59 % (28-66); PLATELET ESTIMATE NORMAL (NORMAL)
[2021-03-10 10:10] LABS: ALBUMIN 2.3 GM/DL (3.2-5.2); ALT/SGPT 185 U/L (12-78); BILIRUBIN,TOTAL 0.2 MG/DL (0.2-1.0); BLOOD UREA NITROGEN 29 MG/DL (7-18); CALCIUM LEVEL 8.4 MG/DL (8.5-10.1); CARBON DIOXIDE LEVEL 23 MEQ/L (21-32); CHLORIDE LEVEL 110 MEQ/L (98-107); CREATININE FOR GFR 0.65 MG/DL (0.55-1.30); GLOMERULAR FILTRATION RATE > 60.0 (>51); GLUCOSE, FASTING 92 MG/DL (70-100); SODIUM LEVEL 141 MEQ/L (136-145); TOTAL PROTEIN 6.5 GM/DL (6.4-8.2)
[2021-03-10] MEDS: D5W/0.45% SODIUM CHLORIDE 1,000 ML IV SCH ×2 (10:36→20:48)
[2021-03-10] MEDS: KETOROLAC 30 MG/ML 1ML VIAL IV SCH ×2 (10:38→18:53)
--- NOTE | 2021-03-10 11:27 | REP ---
INDICATION: pneumonia COMPARISON: 03/09/2021 as well as other prior exams. TECHNIQUE: PA/Lateral FINDINGS: Dense infiltrate in the right lung base is essentially unchanged. Mild left basilar infiltrate is stable. The heart and mediastinum are grossly unchanged. IMPRESSION: Stable exam. <Electronically signed by Leroy Page > 03/10/21 1129
--- NOTE | 2021-03-10 11:56 | IPN ---
PULMONARY PROGRESS NOTE DATE: 03/10/2021 SUBJECTIVE: The patient was seen and examined this morning during bedside rounds. Patient reports her pain control has improved in the right side with Percocet. She does continue to have occasional sharp jabbing pains when she takes very deep breaths. She continues to have some cough with thin mucus that is yellow. There are occasional blood streaks in it now that she notices although she attributes some of that to dried blood from her nares. She has not had any fevers overnight. She denies any abdominal pain. No nausea or vomiting. She did have a speech evaluation yesterday as well as a barium cookie swallow and was told that she could tolerate a regular diet. PHYSICAL EXAMINATION: Vitals: Temperature 98.1, pulse 97, respirations 24, blood pressure 118/59, O2 sat 92-99% on 8 liters nasal cannula. In 450, out 1.8 liters, net negative 1.4 liters. General: Patient is a thin female sitting in bed awake, alert and oriented times 3. She is speaking complete sentences and is not using any accessory respiratory muscles for respiration. HEENT: Normocephalic, atraumatic. Moist mucous membranes noted. Neck: Supple, trachea is midline. There is no palpable adenopathy. Cardiac: Regular rate and rhythm, normal S1 and S2 with no significant murmur auscultated. Pulmonary: Diminished breath sounds on the right base although somewhat mildly improved by sounds. There are crackles noted more on the left side. There is no significant wheezing and no rhonchi. Abdomen: Soft, nontender, nondistended. There is no palpable mass. There is positive bowel sounds. Extremities: There is no significant lower extremity edema noted bilaterally. LABS: WBC 20.1, hemoglobin 11.3, platelets 401. Chemistries: Sodium 141, potassium 4, chloride 110, bicarb 23, BUN 29, creatinine 0.65, glucose 92. AST and ALT 46 and 185, alkaline phosphatase 102, albumin 2.3. Procalcitonin yesterday trended down to 4.02. Microbiology and repeat sputum culture positive for moderate yeast like organism. IMAGING: Chest x-ray is still pending. ASSESSMENT AND PLAN: Ms. Beyer is a 55-year-old female with a history of nicotine dependence and suspected COPD who presented with worsening cough, shortness of breath and acute hypoxemic respiratory failure in the setting of community acquired pneumonia and possible COPD exacerbation. 1. Multifocal community acquired pneumonia: Patient's Chlamydia pneumoniae antibody testing was positive. Her initial sputum cultures were negative. Repeat sputum culture final results show a moderate yeast like organism. Patient was initially on azithromycin and ceftriaxone and the azithromycin was then discontinued. With a positive C pneumoniae she was restarted on atypical coverage this time with Levaquin for also broader coverage of Gram-negatives and Gram-positives. Patient did also receive empiric vancomycin pending the results of her repeat sputum culture. Her MRSA screen was negative. With her sputum culture showing moderate yeast and no other organisms would discontinue the vancomycin. Continue with Levaquin. She has had improvement in her leukocytosis and continued improvement in her procalcitonin. Can start her on fluconazole for the yeast in her sputum although less likely to have an actual fungal pneumonia. We will continue to trend procalcitonin. If there is any increase would need to re-broaden antibiotic coverage at that time. Patient did report some episodes of dysphagia as an outpatient and some occasional coughing and choking when eating: She had evaluation by speech and then a barium cookie swallow with no significant aspiration. Patient will be restarted on her diet, but we did discuss monitoring herself while eating for any aspiration. We will follow up a chest x-ray today. She does have a very dense and likely necrotic pneumonia on the right lower lobe and we will need to closely monitor. She does have a trace right parapneumonic pleural effusion likely contributing to her pleuritic chest pain. We will need to closely monitor for worsening effusion or empyema development. We will continue with Percocet p.r.n. for pain control. She will be completing her I.V. Toradol which was changed to standing today. Patient is on fluids D5 half NS at 50 mL an hour. She did have a slight increase in creatinine and she has been significantly net negative. We will increase her fluids to 75 mL an hour and then can likely discontinue tomorrow as she would be restarted on her diet today. 2. History of nicotine dependence and suspected COPD with possible acute exacerbation: Prednisone was tapered to 20 mg daily. We will continue to slowly wean and taper prednisone. Continue with mucus clearance with nebulized bronchodilators and chest PT with percussion vest and Mucomyst. We did discuss with the patient again the importance of continued smoking cessation while outpatient and after her discharge. 3. Acute hypoxemic respiratory failure in the setting of her multifocal pneumonia: Patient is on high flow nasal cannula oxygen. We will try to wean her down from 8 liters a minute to 6 liters a minute to maintain an O2 sat above 88%. Continue with incentive spirometer and out of bed as tolerated. DVT prophylaxis: Lovenox. CODE STATUS: Full Code. MTDD
--- NOTE | 2021-03-10 17:57 | IPNPDOC ---
Date Seen The patient was seen on 03/10/21. Progress Note SUBJECTIVE: Patient appears comfortable, sitting up in bed, talkative. Reports some chest discomfort with deep inspiration but otherwise denies any significant complaints. Afebrile overnight, saturating low 90s on 8L high flow. OBJECTIVE PHYSICAL EXAMINATION: VITAL SIGNS: Please see below. General: No acute distress, Alert Eyes: Normal sclera, EOMI HENT: Atraumatic Cardiovascular: Normal rate, normal rhythm. Pulmonary: Non labored breathing, speak in complete sentences. L. sided crackles. GI: Soft, nontender, nondistended Skin: Warm and dry Neuro: CN grossly intact. No focal deficits. Strengths equal b/l. Psych: oriented x 3 LABORATORY DATA, IMAGING STUDIES, MICROBIOLOGY: Please see below. ASSESSMENT AND PLAN: 1. Acute hypoxic respiratory failure 2/2 multifocal Pneumonia - + Chlamydia pneumonia Ab testing with moderate yeast on sputum culture. - c/w Levaquin and fluconazole. Negative MRSA. - Trending procalcitonin. Pulmonary following. Doing daily CXR with possibly repeating Chest CT tomorrow. - Percocet PRN for pain control. - On High flow oxygen, weaning down. 2. Suspected COPD - on steroids, tapered down to prednisone 20mg daily. - pulmonary toilet. 3. Mood disorders - Paxil. DVT ppx: Lovenox and RAVINDRA DISPOSITION: Home once medically stable. VS, I&O, 24H, Kar Vital Signs/I&O Vital Signs Date Time Temp Pulse Resp B/P (MAP) Pulse Ox O2 Delivery O2 Flow Rate FiO2 03/10/21 17:02 22 03/10/21 16:00 6.0 03/10/21 16:00 97.6 98 124/66 (85) 90 High Flow Cannula 03/06/21 08:05 40 I&O- Last 24 Hours up to 6 AM 03/10/21 06:00 Intake Total 1000 ml Output Total 1900 ml Balance -900 ml Laboratory Data 24H LABS Laboratory Tests 2 03/10/21 09:01: Neutrophils (%) (Auto) , Nucleated Red Blood Cells % (auto) 0.0, Neutrophils 59, Lymphocytes (Manual) 24, Monocytes (Manual) 13H, Eosinophils (Manual) 4H, Macrocytosis 1+, Platelet Estimate NORMAL, Anion Gap 8, Glomerular Filtration Rate > 60.0, Calcium Level 8.4L, Total Bilirubin 0.2, Aspartate Amino Transf (AST/SGOT) 46H, Alanine Aminotransferase (ALT/SGPT) 185H, Alkaline Phosphatase 162H, Total Protein 6.5, Albumin 2.3L, Albumin/Globulin Ratio 0.5L CBC/BMP Laboratory Tests 03/10/21 09:01 Microbiology Microbiology 03/07/21 Gram Stain - Final, Complete 03/07/21 Sputum Culture - Final, Complete Yeast Like Organism ANGELICA SANCHEZ MD Mar 10, 2021 17:57
[2021-03-10] MEDS: PARoxetine 10MG TABLET PO SCH (20:48)
[2021-03-11] VITALS (13 sets, daily range): BP systolic 118–144; BP diastolic 62–81; O2SAT 86–96
[2021-03-11] MEDS: IPRATROPIUM 0.5MG/ALBUTEROL 2.5MG INH SOL UD 3ML (DUONEB) NEB SCH ×4 (02:03→19:32)
[2021-03-11] MEDS: KETOROLAC 30 MG/ML 1ML VIAL IV SCH ×3 (03:12→18:34)
[2021-03-11] MEDS: LevoFLOXacin 750 MG TABLET PO SCH (05:53)
[2021-03-11] MEDS: SLF 3 ML SYR IV SCH ×3 (05:54→20:23)
[2021-03-11 05:58] LABS: HEMATOCRIT 33.3 % (36.0-47.0); HEMOGLOBIN 10.4 g/dl (12.0-15.5); MEAN CORPUSCULAR HEMOGLOBIN 32.3 pg (27.0-33.0); MEAN CORPUSCULAR HGB CONC 31.2 g/dl (32.0-36.5); MEAN CORPUSCULAR VOLUME 103.4 fl (80.0-96.0); PLATELET COUNT, AUTOMATED 376 10^3/uL (150-450); RED BLOOD COUNT 3.22 10^6/uL (4.00-5.40)
[2021-03-11 06:08] LABS: WHITE BLOOD COUNT 20.1 10^3/uL (4.0-10.0)
[2021-03-11 06:29] LABS: BLOOD UREA NITROGEN 20 MG/DL (7-18); GLUCOSE, FASTING 85 MG/DL (70-100)
[2021-03-11 06:30] LABS: CALCIUM LEVEL 8.2 MG/DL (8.5-10.1); CARBON DIOXIDE LEVEL 28 MEQ/L (21-32); CHLORIDE LEVEL 105 MEQ/L (98-107); GLOMERULAR FILTRATION RATE > 60.0 (>51); SODIUM LEVEL 136 MEQ/L (136-145)
[2021-03-11] MEDS: ACETYLCYSTEINE 20% 4 ML VIAL (200MG/ML) INH SCH ×2 (07:12→19:32)
[2021-03-11 07:33] LABS: ATYPICAL LYMPH 1 % (0-5); EOSINOPHILS 1 % (0-3); LYMPHOCYTES 28 % (16-44); MONOCYTES 12 % (0-5); NEUTROPHILS 58 % (28-66); PLATELET ESTIMATE NORMAL (NORMAL)
--- NOTE | 2021-03-11 07:58 | REP ---
INDICATION: pneumonia. COMPARISON: Comparison chest x-ray March 10, 2021. TECHNIQUE: Two views.. FINDINGS: There is a large fairly dense infiltrate in the right base above a somewhat elevated right hemidiaphragm. The right pleural angle is obscured or blunted. There is also interstitial infiltrate in the left base. These findings are unchanged. Heart is not appear enlarged. No left pleural effusion is seen. IMPRESSION: Extensive bilateral infiltrates consistent with bibasilar pneumonia. Question right effusion. Findings unchanged.. <Electronically signed by Darrell Anthony > 03/11/21 0806
[2021-03-11] MEDS ORDERED: SENNA 8.6 MG TAB (SENOKOT) PO ONE (08:45)
[2021-03-11] MEDS ORDERED: DOCUSATE SODIUM 100MG CAPSULE PO ONE (08:45)
[2021-03-11] MEDS: predniSONE 20 MG TAB PO SCH (08:51)
[2021-03-11] MEDS: ENOXAPARIN 40MG/0.4ML SYRINGE (J1650 PER 10MG) SC SCH (08:51)
[2021-03-11] MEDS: SODIUM CHLORIDE NASAL 0.65% SPRAY BTL (OCEAN) SCH ×2 (08:51→20:23)
[2021-03-11] MEDS: FLUCONAZOLE 100 MG TAB PO SCH (08:51)
[2021-03-11] MEDS: OMEPRAZOLE 20 MG CAP PO SCH ×2 (08:51→20:23)
--- NOTE | 2021-03-11 11:36 | IPN ---
PROGRESS NOTE DATE: 02/24/2021 SUBJECTIVE: The patient was seen and examined this morning during bedside rounds. Yesterday the patient was weaned down to 6 liters nasal cannula oxygen which she has been tolerating well. She reported further improvement in her right-sided pleuritic chest pain and does feel that she is able to take some deeper breaths. She continues to have some cough and mucus production but does notice a decreased amount in terms of her mucus production. She does have some improved drainage as well from her sinuses that she noticed overnight. She has not had any wheezing, no chest pain. She denies any fevers overnight, no abdominal pain and nausea and vomiting. OBJECTIVE: VITAL SIGNS: Temperature 98.3, pulse 100, respirations 22, blood pressure 121/81, O2 saturation 89-90% on 6 liters nasal cannula. Input 1.6 liters. Output 300 mL. GENERAL: The patient is a thin female, is sitting in the bed awake, alert and oriented times three. She is speaking in complete sentences and is not using any accessory muscles for respirations. HEENT: Normocephalic, atraumatic. Moist mucous membranes noted. NECK: Supple. Trachea is midline. No palpable adenopathy. No JVD. CARDIAC: Mildly tachycardic, regular rate and rhythm, normal S1, S2 with no significant murmur auscultated. PULMONARY: Diminished breath sounds in the right base with a few crackles. There are increased crackles and occasional inspiratory squeaks noted on the left side. There is no wheezing noted. ABDOMEN: Soft, nontender, nondistended. No palpable mass. EXTREMITIES: There is no significant lower extremity edema noted bilaterally. LABS: WBC is 20.1, hemoglobin 10.4, platelets 376. Chemistry: Sodium 136, potassium 4.0, chloride 105, bicarb is 28, BUN 20, creatinine 0.50, glucose is 85. IMAGING: Chest x-ray this morning shows slight improvement in the left basilar opacity. There is right-sided consolidation with suspected small pleural effusion which is unchanged. ASSESSMENT AND PLAN: Ms. Campo is a 55-year-old female with a history of nicotine dependence and suspected COPD who presented with worsening cough, shortness of breath, and acute hypoxemic respiratory failure in the setting of community-acquired pneumonia and possible COPD exacerbation. 1. Multifocal community-acquired pneumonia. The patient's Chlamydia pneumoniae antibody was positive. Initial sputum cultures were negative. Repeat sputum cultures show moderate yeast-like organism. The patient's MRSA screen was negative so her previous Vancomycin was discontinued yesterday. She is still on Levaquin currently for antibiotic and fluconazole was added yesterday which we can continue. We will continue to trend her procalcitonin which has been improving with a repeat procalcitonin tomorrow. Depending on her CT results, can likely also change her from IV to p.o. Levaquin. We will follow up with repeat CT chest to continue monitoring her dense necrotic pneumonia in the right lower lobe as well as to monitor for any worsening parapneumonic effusion or empyema. With some clinical improvement, however, suspect that her effusion has not changed significantly. We will get the CT chest tomorrow in the a.m. Continue with aspiration precautions. Continue with pain control with Percocet as needed. We will discontinue her IV fluids given her improvement with creatinine and she was restarted on by mouth intake yesterday. 2. History of nicotine dependence. Suspect COPD with possible acute exacerbation. Continue with Prednisone but would taper her to 10 mg daily today and continue with tapering. Continue with mucus clearance with nebulized bronchodilators and chest PT with percussion vest and Mucomyst. 3. Acute hypoxemic respiratory failure in the setting of multifocal pneumonia. We will continue to wean down her oxygen supplementation as tolerated. She is on 6 liters a minute now and likely can wean her to 5 liters a minute later on today. Continue with incentive spirometer and out of bed to chair as tolerated. DVT prophylaxis with Lovenox. CODE STATUS: FULL CODE. MTDD
[2021-03-11] MEDS: PERCOCET 5MG/325MG TAB PO PRN (17:12)
--- NOTE | 2021-03-11 18:08 | IPNPDOC ---
Date Seen The patient was seen on 03/11/21. Progress Note SUBJECTIVE: Patient reports feeling better. Chest discomfort significantly improved. Satisfactory saturation on 6L overnight. CXR obtained in AM, plan to repeat CT tomorrow morning. OBJECTIVE PHYSICAL EXAMINATION: VITAL SIGNS: Please see below. General: No acute distress, Alert Eyes: Normal sclera, EOMI HENT: Atraumatic Cardiovascular: Normal rate, normal rhythm. Pulmonary: Non labored breathing, speak in complete sentences. L. sided crackles. GI: Soft, nontender, nondistended Skin: Warm and dry Neuro: CN grossly intact. No focal deficits. Strengths equal b/l. Psych: oriented x 3 LABORATORY DATA, IMAGING STUDIES, MICROBIOLOGY: Please see below. ASSESSMENT AND PLAN: 1. Acute hypoxic respiratory failure 2/2 multifocal Pneumonia - + Chlamydia pneumonia Ab testing with moderate yeast on sputum culture. - c/w Levaquin and fluconazole. Negative MRSA. - Trending procalcitonin. Pulmonary following. Doing daily CXR. Plan to repeat Chest CT tomorrow morning. - Percocet PRN for pain control. - On High flow oxygen, weaning down. 2. Suspected COPD - on steroids, tapered down prednisone. - pulmonary toilet. 3. Mood disorders - Paxil. DVT ppx: Lovenox and RAVINDRA DISPOSITION: Home once medically stable. VS, I&O, 24H, Fishbone Vital Signs/I&O Vital Signs Date Time Temp Pulse Resp B/P (MAP) Pulse Ox O2 Delivery O2 Flow Rate FiO2 03/11/21 17:42 22 03/11/21 16:00 94 Nasal Cannula 03/11/21 16:00 98.5 95 127/66 (86) 6.0 03/06/21 08:05 40 I&O- Last 24 Hours up to 6 AM 03/11/21 06:00 Intake Total 1170 ml Balance 1170 ml Laboratory Data 24H LABS Laboratory Tests 2 03/11/21 05:18: Neutrophils (%) (Auto) , Nucleated Red Blood Cells % (auto) 0.0, Neutrophils 58, Lymphocytes (Manual) 28, Monocytes (Manual) 12H, Eosinophils (Manual) 1, Atypical Lymphocytes 1, Macrocytosis 1+, Platelet Estimate NORMAL, Anion Gap 3L, Glomerular Filtration Rate > 60.0, Calcium Level 8.2L, Procalcitonin 3.69 CBC/BMP Laboratory Tests 03/11/21 05:18 Microbiology Microbiology 03/07/21 Gram Stain - Final, Complete 03/07/21 Sputum Culture - Final, Complete Yeast Like Organism ANGELICA SANCHEZ MD Mar 11, 2021 18:08
[2021-03-11] MEDS: PARoxetine 10MG TABLET PO SCH (20:23)
[2021-03-12] VITALS: BP 128/71
[2021-03-12] MEDS: PERCOCET 5MG/325MG TAB PO PRN ×4 (00:05→23:57)
[2021-03-12] MEDS: IPRATROPIUM 0.5MG/ALBUTEROL 2.5MG INH SOL UD 3ML (DUONEB) NEB SCH ×4 (02:11→19:33)
[2021-03-12] MEDS: KETOROLAC 30 MG/ML 1ML VIAL IV SCH (02:52)
[2021-03-12 04:00] VITALS: BP 119/75
[2021-03-12 05:49] LABS: BASO % 0.2 % (0.0-1.0); EOS # 0.4 10^3/uL (0.0-0.5); EOS % 2.3 % (0.0-3.0); HEMATOCRIT 32.4 % (36.0-47.0); HEMOGLOBIN 10.1 g/dl (12.0-15.5); LYMPH # 5.5 10^3/uL (1.5-5.0); LYMPH % 31.9 % (24.0-44.0); MEAN CORPUSCULAR HEMOGLOBIN 32.3 pg (27.0-33.0); MEAN CORPUSCULAR HGB CONC 31.2 g/dl (32.0-36.5); MEAN CORPUSCULAR VOLUME 103.5 fl (80.0-96.0); MONO # 1.9 10^3/uL (0.0-0.8); NEUTROPHILS # 9.3 10^3/uL (1.5-8.5); NEUTROPHILS % 53.8 % (36.0-66.0); PLATELET COUNT, AUTOMATED 364 10^3/uL (150-450); RED BLOOD COUNT 3.13 10^6/uL (4.00-5.40)
[2021-03-12 05:59] LABS: BLOOD UREA NITROGEN 29 MG/DL (7-18); CARBON DIOXIDE LEVEL 25 MEQ/L (21-32); CHLORIDE LEVEL 110 MEQ/L (98-107); CREATININE FOR GFR 0.58 MG/DL (0.55-1.30); GLOMERULAR FILTRATION RATE > 60.0 (>51); GLUCOSE, FASTING 126 MG/DL (70-100); POTASSIUM SERUM 3.5 MEQ/L (3.5-5.1); SODIUM LEVEL 141 MEQ/L (136-145)
[2021-03-12] MEDS: LevoFLOXacin 750 MG TABLET PO SCH (06:18)
[2021-03-12] MEDS: SLF 3 ML SYR IV SCH ×3 (06:18→20:19)
[2021-03-12 06:25] LABS: WHITE BLOOD COUNT 17.2 10^3/uL (4.0-10.0)
[2021-03-12 06:26] LABS: MONO % 11.2 % (2.0-8.0)
[2021-03-12] MEDS: ACETYLCYSTEINE 20% 4 ML VIAL (200MG/ML) INH SCH ×2 (07:46→19:33)
[2021-03-12 08:00] VITALS: BP 119/60
--- NOTE | 2021-03-12 09:22 | IPN ---
PULMONARY SERVICE PROGRESS NOTE DATE: 03/04/2021 SUBJECTIVE: The patient is seen in the Progressive Care Unit. This is hospital day #8. Oxygen need is somewhat less. She still desaturates with minimal activity and has ongoing cough with dubois sputum. OBJECTIVE: Vital signs: Temperature 98, pulse rate 69, respirations 18, blood pressure 131/70, oxygen saturation 88% on 45% oxygen delivered via Vapotherm. Input and output for the past 24 hours: 1370 in, 2450 out. General: At bedside she remains ill-appearing and somewhat cachectic. HEENT: Her oral mucosa is pink. Neck is supple. There is no jugular venous distention. Heart sounds are regular without appreciable murmur. Respiratory: Breath sounds are coarse. Better air exchange is appreciated daily. Crepitant rales on the left are less prominent than yesterday. There is dullness persisting in the right base, however. Chest is symmetric. No accessory muscle engagement. Abdomen is soft. Extremities show no significant edema. DIAGNOSTIC STUDIES: Her CBC continues to show an elevated white count with 28.2. Hemoglobin is stable at 12.2, hematocrit 38.4, platelet count is 583,000. Electrolytes: Sodium 135, potassium 4.7, chloride 101, CO2 28, BUN 29, creatinine 0.54, glucose 119. Transaminases are elevated. AST 197, ALT 693. Albumin is 2.8. MEDICATIONS: On review of medications on day number eight: 1. Ceftriaxone. 2. She is receiving Solu-Medrol 40 mg every 12 hours. 3. DuoNebs. 4. Lovenox subcutaneously. ASSESSMENT: 1. Hypoxemia. Oxygen requirement is very high persistently. Saturations are acceptable with a high flow system. 2. Pneumonia. Etiology is unclear. She does appear to be responding to ceftriaxone. 3. Chronic obstructive pulmonary disease. Patient is on optimal nebulized therapy. Will change to oral prednisone today. 4. Leukocytosis. Possibly related in part to steroids. Perhaps changing to the oral form will reduce demargination. Edited: adelina 03/12/2021 1001 MTDD
--- NOTE | 2021-03-12 09:23 | REP ---
INDICATION: pneumonia. COMPARISON: Portable chest 03/11/2020, 03/10/2021; CT 03/07/2021 TECHNIQUE: Noncontrast images with coronal and sagittal reconstructions are provided. FINDINGS: The dense consolidation in the right mid and lower lung zone continues but is somewhat improved. The effusion is resolved there is still extensive the patchy consolidations with more confluent density and the more inferior aspects of the middle and lower lobes. There is relative sparing of the right upper the left lung shows a few scattered patchy infiltrates in the upper lobe and lingula with more significant improvement in the a dense consolidative opacity seen on the CT 4 days ago. There is no left effusion. Pneumothorax or pneumomediastinum heart size unchanged mediastinal hilar pathologic sized the aorta has a few calcifications but is stable bones are unchanged there is no hiatal. The upper abdomen shows that portion liver, spleen, adrenal glands pancreas and upper poles of kidneys be intact. IMPRESSION: 1. Significant improvement in the left base from dense consolidation, now with patchy infiltrates remaining there and scattered. 2. There is also improvement in the right base with less dense confluent opacities but still some remaining in the more inferior 1/3 of the lung field involving both the middle and lower lobes. Patchy infiltrates in the superior segment of the lower lobe and adjacent middle lobe. The effusion is largely resolved. No other interval change. <Electronically signed by Jay Carreon > 03/12/21 [id number]
[2021-03-12] MEDS: OMEPRAZOLE 20 MG CAP PO SCH ×2 (09:43→20:18)
[2021-03-12] MEDS: FLUCONAZOLE 100 MG TAB PO SCH (09:43)
[2021-03-12] MEDS: ENOXAPARIN 40MG/0.4ML SYRINGE (J1650 PER 10MG) SC SCH (09:43)
[2021-03-12] MEDS: predniSONE 10 MG TAB PO SCH (09:43)
[2021-03-12] MEDS: SODIUM CHLORIDE NASAL 0.65% SPRAY BTL (OCEAN) SCH ×2 (09:44→20:19)
[2021-03-12 12:00] VITALS: BP 121/70
--- NOTE | 2021-03-12 12:11 | IPN ---
PULMONARY PROGRESS NOTE DATE: 03/12/2021 SUBJECTIVE: The patient was seen and examined this morning during bedside rounds. Patient has been afebrile overnight. She continues to have some cough and mucus production although the amount has decreased. She is noticing some occasional flecks of yellow mucus now instead of more of the white/dubois mucus that she was having previously. She has continued improvement in her right sided chest pain. She does have some slight discomfort now on her left side that she is noticing. She denies any abdominal pain, no nausea or vomiting. She continues to be out of bed and walking around her room, but has not been seen by PT. Patient did have a bowel movement yesterday which she states was softer than previous and she is not as constipated as she was. PHYSICAL EXAMINATION: Vitals: Temperature 97.8, pulse 92, respirations 22, blood pressure 119/75, O2 sat 92-95% on 6 liters nasal cannula. Ins 2 liters, out 1 liter, net positive 1.1 liter. General: Patient is a thin female sitting in bed, awake, alert and oriented times 3. She is speaking in complete sentences and is not using any accessory muscles for respiration. HEENT: Normocephalic, atraumatic. Moist mucous membranes. Neck: Supple, trachea is midline. No obvious JVD. Cardiac: Regular rate and rhythm, normal S1 and S2 with no appreciable murmurs auscultated. Pulmonary: There are more crackles noted on the right side with somewhat improved air entry in the right base, but still diminished more posteriorly on the right. There are increased crackles and occasional rhonchi noted on the left. There is no wheezing noted. Abdomen: Soft, nontender, nondistended. No palpable mass. Extremities: There is no significant lower extremity edema noted bilaterally. LABS: WBC 17.2, hemoglobin 10.1, platelets 364. Chemistries: Sodium 141, potassium 3.5, chloride 110, bicarb 25, BUN 29, creatinine 0.58, glucose 126. Procalcitonin trending down to 3.69. IMAGING: CT chest 03/12/2021: Compared to the CT from there has been improvement in the airspace disease on the right particularly in the right upper lobe and in the right middle lobe with the consolidation appearing less dense and more ground glass. In the right middle lobe there appears to be an area now of more focal cystic or bronchiectatic change. There is still fairly dense areas of consolidation and air bronchograms noted more in the right lower lobe inferiorly. There is some improvement in the consolidation in the superior segment of the right lower lobe. In the left lung there is significant improvement in the areas of scattered opacities and infiltrates with more ground glass and nodular ground glass opacities now in the left including a region in the left upper lobe perihilar and then more scattered ground glass opacities in the more extensive field in the left lower lobe. The previous small right pleural effusion has resolved. There is no pleural effusion on the left. ASSESSMENT AND PLAN: Ms. Campo is a 55-year-old female with a history of nicotine dependence and suspected COPD who presented with worsening cough, shortness of breath and an acute hypoxemic respiratory failure in the setting of multifocal community acquired pneumonia and possible COPD exacerbation. 1. Multifocal community acquired pneumonia: Patient's Chlamydia pneumoniae antibody was positive. Her initial sputum culture was negative. Repeat sputum cultures showed moderate yeast like organism. Her MRSA screen was also negative. Patient had been changed to Levaquin for an antibiotic and with the change in antibiotic had improvement in her leukocytosis and improvement on imaging. She initially did have some worsening airspace disease noted particularly on the left side as well as development of a right parapneumonic effusion. Her repeat CT does show improvement in the left sided airspace disease as well as resolution of her right effusion. We will continue Levaquin for antibiotic to complete a total 14 day course. She will need an additional 8 days now from today. Patient is on fluconazole of the yeast like organisms noted in her recent sputum culture. I would have her complete 7 days total so would need an additional 4 days of fluconazole. Patient continues to notice improvement in her chest pain. Would discontinue Toradol and can continue with Percocet p.r.n. for pain control. Patient has had improvement with her constipation with the bowel regimen started yesterday. Would continue while on opioids. Patient will need imaging follow up for resolution after discharge. She does have more nodular opacities noted particularly on the left lung and these will need to be followed up with a CT of the chest likely in 4 weeks after discharge from the hospital. 2. History of nicotine dependence and suspected COPD with possible acute exacerbation: Patient was tapered to prednisone 10 mg yesterday. Would continue with slow weaning and tapering off of prednisone over the next several days. Can continue mucus clearance with nebulized bronchodilators, chest PT with percussion vest and Mucomyst. Patient can be started on a maintenance inhaler prior to discharge such as Spiriva. 3. Acute hypoxemic respiratory failure in the setting of multifocal pneumonia: Patient's oxygenation has been improving. She will be weaned down to 4 liters a minute nasal cannula oxygen today and we will continue to slowly wean as tolerated to maintain an O2 sat above 88%. Continue with incentive spirometer. We will get PT evaluation for the patient as part of pending Discharge Plan. We discuss with the patient that she will likely need oxygen supplementation upon discharge which can likely be weaned off further as an outpatient. DVT prophylaxis: Lovenox. CODE STATUS: Full Code. Please do not hesitate to call if any further questions or concerns. MTDD
--- NOTE | 2021-03-12 12:55 | IPNPDOC ---
Text Note Date of Service The patient was seen on 03/12/21. NOTE SUBJECTIVE: Ms. Campo feels significantly improved and is ambulating to the bathroom on supplemental oxygen without difficulty. She continues to have production of frothy white sputum and pleuritic chest pain on the right with deep inspiration. PHYSICAL EXAMINATION: VITAL SIGNS: see below GENERAL APPEARANCE: Awake, alert, oriented x 3. Speaking full sentences, NAD HEENT: Atraumatic, normocephalic. Eyes are anicteric. Mucous membranes are pink and moist CARDIOVASCULAR: NSR, regular rhythm, no noted murmurs LUNGS: Scattered bilateral mid lung field crackles, decreased air movement noted to right lower base ABDOMEN: Normoactive sounds, soft, nondistended. No rebound tenderness or guarding. EXTREMITIES: No lower extremity edema, no apparent rashes/petechiae. NEUROLOGICAL: Awake, speech is clear, AOx3 LABORATORY STUDIES: See below RADIOLOGY STUDIES: CT Chest: IMPRESSION: 1. Significant improvement in the left base from dense consolidation, now with patchy infiltrates remaining there and scattered. 2. There is also improvement in the right base with less dense confluent opacities but still some remaining in the more inferior 1/3 of the lung field involving both the middle and lower lobes. Patchy infiltrates in the superior segment of the lower lobe and adjacent middle lobe. The effusion is largely resolved. No other interval change. ASSESSMENT: Ms. Campo is a 55 year old female admitted for multifocal pneumonia and is im proving with Pulmonology consulted. She remains on Levaquin and fluconazole and continues to wean oxygen requirement. PLAN: # Multifocal CAP with hypoxia: C. penumoniae antibodies are positive and sputum culture showed GPC though MRSA swab is negative. Patient also has likely history of COPD given nicotine use history. CT chest demonstrated improvement and patient is slowly having a reduction in her oxygen requirement and is in the process of a slow steroid taper, has chest PT and nebulizers. Pulmonology is closely following and supports continued antibiotics and attempts to wean off of supplemental oxygen. Meds: Levaquin 750mg daily Fluconazole 400mg daily Toradol scheduled for pleuritic chest pain Percocet PRN breakthrough pain Nebulizers Q6H Prednisone 10mg QAM Mucomyst Daily Procalcitonin Continue to support SpO2 >92% Pulmonary toilet and chest PT #RUQ pain and LFT abnormalities: These are stable today however have decreased from admission. RUQUS showed distended gallbladder without cholecystitis and CT abd/pelvis was unremarkable for acute liver pathology. Patient will need to follow up with PCM upon discharge regarding this. Meds: PPI and Maalox PRN # Mood disorder: Continue Paxil DISPOSITION: Continue inpatient admission on Tele with transfer to med/surg DIET: Heart healthy DVT PROPHY: Lovenox CONSULTS: Pulmonology who has signed off DISCHARGE: Unclear, pending improvement in respiratory status VS,Fishbone, I+O VS, Fishbone, I+O Laboratory Tests 03/12/21 05:19 Vital Signs Date Time Temp Pulse Resp B/P (MAP) Pulse Ox O2 Delivery O2 Flow Rate FiO2 03/12/21 04:00 97.8 92 24 119/75 (90) 92 Nasal Cannula 6.0 03/06/21 08:05 40 I&O- Last 24 Hours up to 6 AM 03/12/21 06:00 Intake Total 1800 ml Output Total 1000 ml Balance 800 ml MARTA CORTEZ MD [facility] Mar 12, 2021 09:08
[2021-03-12 20:00] VITALS: BP 126/59
[2021-03-12] MEDS: PARoxetine 10MG TABLET PO SCH (20:18)
[2021-03-13] VITALS (7 sets, daily range): BP systolic 117–154; BP diastolic 69–88; O2SAT 87–89
[2021-03-13] MEDS: IPRATROPIUM 0.5MG/ALBUTEROL 2.5MG INH SOL UD 3ML (DUONEB) NEB SCH ×4 (02:02→19:12)
[2021-03-13 05:36] LABS: BASO # 0.1 10^3/uL (0.0-0.2); BASO % 0.3 % (0.0-1.0); EOS # 0.5 10^3/uL (0.0-0.5); EOS % 2.9 % (0.0-3.0); HEMATOCRIT 33.7 % (36.0-47.0); HEMOGLOBIN 10.8 g/dl (12.0-15.5); LYMPH # 5.8 10^3/uL (1.5-5.0); LYMPH % 31.3 % (24.0-44.0); MEAN CORPUSCULAR HEMOGLOBIN 32.8 pg (27.0-33.0); MEAN CORPUSCULAR VOLUME 102.4 fl (80.0-96.0); MONO % 10.8 % (2.0-8.0); NEUTROPHILS % 54.3 % (36.0-66.0); PLATELET COUNT, AUTOMATED 341 10^3/uL (150-450); RED BLOOD COUNT 3.29 10^6/uL (4.00-5.40)
[2021-03-13 06:10] LABS: WHITE BLOOD COUNT 18.5 10^3/uL (4.0-10.0)
[2021-03-13 06:11] LABS: BLOOD UREA NITROGEN 22 MG/DL (7-18); CALCIUM LEVEL 8.6 MG/DL (8.5-10.1); CARBON DIOXIDE LEVEL 30 MEQ/L (21-32); CHLORIDE LEVEL 104 MEQ/L (98-107); CREATININE FOR GFR 0.49 MG/DL (0.55-1.30); GLOMERULAR FILTRATION RATE > 60.0 (>51); GLUCOSE, FASTING 82 MG/DL (70-100); POTASSIUM SERUM 4.6 MEQ/L (3.5-5.1); SODIUM LEVEL 138 MEQ/L (136-145)
[2021-03-13] MEDS: LevoFLOXacin 750 MG TABLET PO SCH (06:11)
[2021-03-13] MEDS: SLF 3 ML SYR IV SCH ×3 (06:12→20:49)
[2021-03-13] MEDS: ACETYLCYSTEINE 20% 4 ML VIAL (200MG/ML) INH SCH ×2 (07:59→19:11)
--- NOTE | 2021-03-13 08:21 | IPNPDOC ---
Text Note Date of Service The patient was seen on 03/13/21. NOTE Hospitalist Progress Note Subjective: Patient was sitting upright in the bed when I entered the room. She did have the vibrating chest PT machine going, and she was using a nebulizer when I entered the room. We did pause the chest PT machine during my physical examination so I could listen to her lungs. She seems to be in good spirits. She is a little bit dismayed because she had been down to 3 L oxygen on nasal cannula last night and they just put her back up to 5. Otherwise, she also reports that she has run out of peppermint oil spray, which she generally uses t o help you breathe as well, she is hoping that she might be able to get another one today. Otherwise, she does not have any complaints at this time, she reports that she has been feeling better on a daily basis despite her mild setback this morning. She does have a positive outlook. She continues to cough, and has some frothy sputum, has not noted any blood. The remainder of her review of systems is negative. Objective: General: Awake, alert, oriented 3. Not in any acute distress. HEENT: Head normocephalic, atraumatic, sclera are nonicteric. Hearing is grossly intact to conversation. Respiratory: Mild to moderate crackles with perhaps some mild rhonchi noted at the bases bilaterally. Cardiovascular: Regular rate and rhythm, with no rubs, gallops, or murmur. Abdomen: Soft, nontender, nondistended, no hepatosplenomegaly appreciated. Bowel sounds present. Extremities: 2+ pulses in the radial and dorsalis pedis bilaterally. No evidence of clubbing or cyanosis. Assessment: Multifocal community-acquired pneumonia Acute hypoxemic respiratory failure -Chlamydia pneumoniae antibody was positive -Initial sputum culture negative -Repeat sputum culture showed moderate yeastlike organism -MRSA screen negative -Plan is to continue Levaquin for total of 14 days, which will end on 03/19/2021 -Also continue fluconazole for total of 7 days, which will end on 03/16/2021 -Continue weaning oxygen, with a goal to maintain O2 above 88%. Continue incentive spirometer. Still requiring 3-4 L of oxygen at this time. -Continued scheduled and as needed inhalers -Continue prednisone -Continue chest PT Nodular pulmonary opacities noted on CT of the lung -Recommend CT of the chest 4 weeks after discharge from hospital DVT prophylaxis -Continue Lovenox Disposition: Pending clinical improvement and weaning off of oxygen. She is not on oxygen at home, there is a possibility that she may need to go home on oxygen, and be weaned off of this as an outpatient. Current status is MedSurg with telemetry. VS,Fishbone, I+O VS, Fishbone, I+O Laboratory Tests 03/13/21 05:20 Vital Signs Date Time Temp Pulse Resp B/P (MAP) Pulse Ox O2 Delivery O2 Flow Rate FiO2 03/13/21 06:00 96.8 89 24 154/75 (101) 87 Nasal Cannula 3.0 I&O- Last 24 Hours up to 6 AM 03/13/21 06:00 Intake Total 660 ml Output Total 3300 ml Balance -2640 ml HARMONY MCKEON DO Mar 13, 2021 08:21
[2021-03-13] MEDS: ENOXAPARIN 40MG/0.4ML SYRINGE (J1650 PER 10MG) SC SCH (08:38)
[2021-03-13] MEDS: OMEPRAZOLE 20 MG CAP PO SCH ×2 (08:38→20:49)
[2021-03-13] MEDS: FLUCONAZOLE 100 MG TAB PO SCH (08:38)
[2021-03-13] MEDS: predniSONE 10 MG TAB PO SCH (08:38)
[2021-03-13] MEDS: SODIUM CHLORIDE NASAL 0.65% SPRAY BTL (OCEAN) SCH ×2 (08:39→20:49)
[2021-03-13] MEDS: PERCOCET 5MG/325MG TAB PO PRN (08:47)
[2021-03-13] MEDS: DOCUSATE SODIUM 100MG CAPSULE PO PRN (12:48)
[2021-03-13] MEDS: SENNA 8.6 MG TAB (SENOKOT) PO PRN (12:48)
[2021-03-13] MEDS: traMADol 50 MG TAB PO PRN (14:33)
[2021-03-13] MEDS: PARoxetine 10MG TABLET PO SCH (20:49)
[2021-03-13] MEDS: hydrOXYzine 25 MG TAB PO PRN (20:54)
[2021-03-14] VITALS (10 sets, daily range): BP systolic 108–128; BP diastolic 57–75; O2SAT 88–92
[2021-03-14] MEDS: IPRATROPIUM 0.5MG/ALBUTEROL 2.5MG INH SOL UD 3ML (DUONEB) NEB SCH ×4 (02:43→20:23)
[2021-03-14] MEDS: PERCOCET 5MG/325MG TAB PO PRN ×3 (02:47→20:52)
[2021-03-14] MEDS: LevoFLOXacin 750 MG TABLET PO SCH (05:53)
[2021-03-14] MEDS: SLF 3 ML SYR IV SCH ×3 (05:56→21:00)
[2021-03-14 06:29] LABS: BASO # 0.1 10^3/uL (0.0-0.2); BASO % 0.3 % (0.0-1.0); EOS # 0.5 10^3/uL (0.0-0.5); EOS % 2.8 % (0.0-3.0); HEMATOCRIT 35.3 % (36.0-47.0); HEMOGLOBIN 11.3 g/dl (12.0-15.5); LYMPH # 6.8 10^3/uL (1.5-5.0); MEAN CORPUSCULAR HEMOGLOBIN 32.2 pg (27.0-33.0); MEAN CORPUSCULAR VOLUME 100.6 fl (80.0-96.0); MONO % 10.4 % (2.0-8.0); NEUTROPHILS # 9.5 10^3/uL (1.5-8.5); NEUTROPHILS % 50.1 % (36.0-66.0); PLATELET COUNT, AUTOMATED 378 10^3/uL (150-450); RED BLOOD COUNT 3.51 10^6/uL (4.00-5.40)
[2021-03-14 06:55] LABS: BLOOD UREA NITROGEN 24 MG/DL (7-18); CALCIUM LEVEL 8.7 MG/DL (8.5-10.1); CARBON DIOXIDE LEVEL 30 MEQ/L (21-32); CHLORIDE LEVEL 102 MEQ/L (98-107); CREATININE FOR GFR 0.58 MG/DL (0.55-1.30); GLOMERULAR FILTRATION RATE > 60.0 (>51); GLUCOSE, FASTING 84 MG/DL (70-100); POTASSIUM SERUM 4.4 MEQ/L (3.5-5.1); SODIUM LEVEL 139 MEQ/L (136-145)
[2021-03-14] MEDS: ACETYLCYSTEINE 20% 4 ML VIAL (200MG/ML) INH SCH ×2 (07:31→20:23)
[2021-03-14] MEDS ORDERED: SODIUM CHLORIDE 0.9% 1000ML IV ONE (09:00)
[2021-03-14] MEDS ORDERED: predniSONE 20 MG TAB PO ONE (09:00)
[2021-03-14] MEDS: ENOXAPARIN 40MG/0.4ML SYRINGE (J1650 PER 10MG) SC SCH (09:06)
[2021-03-14] MEDS: FLUCONAZOLE 100 MG TAB PO SCH (09:07)
[2021-03-14] MEDS: OMEPRAZOLE 20 MG CAP PO SCH ×2 (09:08→20:49)
[2021-03-14] MEDS: SODIUM CHLORIDE NASAL 0.65% SPRAY BTL (OCEAN) SCH ×2 (09:09→20:48)
[2021-03-14] MEDS: DOCUSATE SODIUM 100MG CAPSULE PO PRN (09:14)
[2021-03-14] MEDS: SENNA 8.6 MG TAB (SENOKOT) PO PRN (09:14)
[2021-03-14] MEDS: SENOKOT S TAB PO SCH ×2 (10:24→20:49)
--- NOTE | 2021-03-14 11:58 | IPNPDOC ---
Text Note Date of Service The patient was seen on 03/14/21. NOTE Hospitalist Progress Note Subjective: She does continue to have some shortness of breath, cough, and occasional right- sided pleuritic pain with deep inspirations. Objective: General: Awake, alert, oriented 3. Not in any acute distress. HEENT: Head normocephalic, atraumatic, sclera are nonicteric. Hearing is grossly intact to conversation. Respiratory: Crackles noted throughout the bilateral bases and mid lung torres, apices seem clear. Cardiovascular: Regular rate and rhythm, with no rubs, gallops, or murmur. Abdomen: Soft, nontender, nondistended, no hepatosplenomegaly appreciated. Bowel sounds present. Extremities: 2+ pulses in the radial and dorsalis pedis bilaterally. No evidence of clubbing or cyanosis. Assessment: Prerenal azotemia, perhaps secondary to dehydration -We will administer a single 500 cc bolus of fluids, this may be contributing to her shortness of breath Constipation -Likely secondary to pain medications, she had Colace and Senokot ordered as PRN meds, but has only had a few doses while inpatient. I will discontinue these orders and put her on Senokot-S 1 tablet twice daily scheduled Multifocal community-acquired pneumonia Acute hypoxemic respiratory failure -Continue weaning oxygen, with a goal to maintain O2 above 88%. Continue incentive spirometer. Still requiring oxygen at this time, as a matter fact her oxygen needs now gone up to 5-6 L. She had been weaned down to 10 mg of prednisone daily which perhaps was premature, she likely still has quite a bit of pulmonary inflammation contributing to hypoxemia. I will give her 60 mg of prednisone today, and start her on 40 mg daily tomorrow which can be weaned in the future pending improvement. -Chlamydia pneumoniae antibody was positive -Initial sputum culture negative -Repeat sputum culture showed moderate yeastlike organism -MRSA screen negative -Plan is to continue Levaquin for total of 14 days, which will end on 03/19/2021 -Also continue fluconazole for total of 7 days, which will end on 03/16/2021 -Continued scheduled and as needed inhalers -Continue chest PT Nodular pulmonary opacities noted on CT of the lung -Recommend CT of the chest 4 weeks after discharge from hospital DVT prophylaxis -Continue Lovenox Disposition: Pending clinical improvement and weaning off of oxygen. She is not on oxygen at home, there is a possibility that she may need to go home on oxygen, and be weaned off of this as an outpatient, however we are still adjusting medications as an inpatient, and it is hoped that this will not be necessary. VS,Fishbone, I+O VS, Fishbone, I+O Laboratory Tests 03/14/21 06:11 Vital Signs Date Time Temp Pulse Resp B/P (MAP) Pulse Ox O2 Delivery O2 Flow Rate FiO2 03/14/21 10:00 98.9 94 20 108/57 (74) 88 Nasal Cannula 6.0 I&O- Last 24 Hours up to 6 AM 03/14/21 06:00 Intake Total 1380 ml Output Total 900 ml Balance 480 ml HARMONY MCKEON DO Mar 14, 2021 11:58
[2021-03-14] MEDS: hydrOXYzine 25 MG TAB PO PRN (20:48)
[2021-03-14] MEDS: PARoxetine 10MG TABLET PO SCH (20:52)
[2021-03-15] VITALS (11 sets, daily range): BP systolic 111–133; BP diastolic 64–82; O2SAT 89–93
[2021-03-15] MEDS: IPRATROPIUM 0.5MG/ALBUTEROL 2.5MG INH SOL UD 3ML (DUONEB) NEB SCH ×4 (01:23→19:10)
[2021-03-15] MEDS: PERCOCET 5MG/325MG TAB PO PRN ×3 (03:42→20:35)
[2021-03-15] MEDS: SLF 3 ML SYR IV SCH ×3 (05:34→20:35)
[2021-03-15] MEDS: LevoFLOXacin 750 MG TABLET PO SCH (05:34)
[2021-03-15 06:36] LABS: BASO % 0.1 % (0.0-1.0); EOS # 0.3 10^3/uL (0.0-0.5); EOS % 1.5 % (0.0-3.0); HEMATOCRIT 34.7 % (36.0-47.0); HEMOGLOBIN 11.1 g/dl (12.0-15.5); LYMPH # 5.7 10^3/uL (1.5-5.0); LYMPH % 27.5 % (24.0-44.0); MEAN CORPUSCULAR HEMOGLOBIN 32.8 pg (27.0-33.0); MEAN CORPUSCULAR VOLUME 102.7 fl (80.0-96.0); MONO # 1.8 10^3/uL (0.0-0.8); MONO % 8.5 % (2.0-8.0); NEUTROPHILS # 12.7 10^3/uL (1.5-8.5); NEUTROPHILS % 61.9 % (36.0-66.0); PLATELET COUNT, AUTOMATED 396 10^3/uL (150-450); RED BLOOD COUNT 3.38 10^6/uL (4.00-5.40)
[2021-03-15 07:03] LABS: BLOOD UREA NITROGEN 21 MG/DL (7-18); CALCIUM LEVEL 8.6 MG/DL (8.5-10.1); CARBON DIOXIDE LEVEL 28 MEQ/L (21-32); CHLORIDE LEVEL 103 MEQ/L (98-107); CREATININE FOR GFR 0.62 MG/DL (0.55-1.30); GLOMERULAR FILTRATION RATE > 60.0 (>51); GLUCOSE, FASTING 147 MG/DL (70-100); POTASSIUM SERUM 4.2 MEQ/L (3.5-5.1); SODIUM LEVEL 139 MEQ/L (136-145)
[2021-03-15 07:11] LABS: WHITE BLOOD COUNT 20.6 10^3/uL (4.0-10.0)
[2021-03-15] MEDS: ACETYLCYSTEINE 20% 4 ML VIAL (200MG/ML) INH SCH ×2 (07:16→19:10)
[2021-03-15] MEDS: predniSONE 20 MG TAB PO SCH (09:19)
[2021-03-15] MEDS: ENOXAPARIN 40MG/0.4ML SYRINGE (J1650 PER 10MG) SC SCH (09:19)
[2021-03-15] MEDS: SODIUM CHLORIDE NASAL 0.65% SPRAY BTL (OCEAN) SCH ×2 (09:20→20:34)
[2021-03-15] MEDS: SENOKOT S TAB PO SCH ×2 (09:20→20:35)
[2021-03-15] MEDS: OMEPRAZOLE 20 MG CAP PO SCH ×2 (09:20→20:35)
[2021-03-15] MEDS: FLUCONAZOLE 100 MG TAB PO SCH (09:20)
[2021-03-15] MEDS ORDERED: MIRALAX *UNIT DOSE* 17GM PACKET PO PRN (09:30)
[2021-03-15] MEDS: traMADol 50 MG TAB PO PRN ×2 (09:32→18:00)
--- NOTE | 2021-03-15 19:03 | IPNPDOC ---
Subjective Date Seen The patient was seen on 03/15/21. Subjective Chief Complaint/HPI Mrs. Campo is a 56 year old female who is here with multifocal pneumonia. This morning, she still has dyspnea and right sided pleuritic pain. She tells me that she has trouble sleeping at night due to her dyspnea and mucus production. Will order her an acapella. Encourage used of IS. Objective Physical Examination General Exam: Positive: Alert, Cooperative Eye Exam: Negative: Sclera icteric Neck Exam: Positive: Supple Chest Exam: Positive: Diminished Heart Exam: Positive: Rate Normal, Normal S1, Normal S2 Abdomen Exam: Positive: Normal bowel sounds Extremity Exam: Negative: Edema Neuro Exam: Positive: Normal Speech Psych Exam: Positive: Anxiety Assessment /Plan Assessment Mrs. Campo is a 56 year old female who is here with multifocal pneumonia. She is still requiring 5L of oxygen. Will continue with antibiotics and supportive care. Plan/VTE VTE Prophylaxis Ordered?: Yes Plan 1. Multifocal community acquired pneumonia -Chlamydia pneumoniae antibody positive -Sputum culture demonstrated yeast like organisms -Levaquin for a total of 14 days. End on 03/19/21 -Fluconazole for a total of 7 days. End on 03/16/21 -Continue chest PT and IS 2. Acute hypoxic respiratory failure -Secondary to pneumonia -Requiring 5L of oxygen -Continue with prednisone -Continue with chest PT and IS 3. Nodular pulmonary opacities -Will need to have repeat CT chest 4 weeks after discharge from hospital 4. Constipation -Continue with Senokot S and Miralax -Will add on Milk of Mag 5. Insomnia -Continue hydroxyzine -Added on Rozerem 6. DVT ppx -Lovenox Disposition: Pending improvement in respiratory function VS, I&O, 24H, [facility] Vital Signs/I&O Vital Signs Date Time Temp Pulse Resp B/P (MAP) Pulse Ox O2 Delivery O2 Flow Rate FiO2 03/15/21 18:30 16 03/15/21 18:00 98.4 96 113/69 (84) 88 Nasal Cannula 5.0 03/15/21 09:00 89 I&O- Last 24 Hours up to 6 AM 03/15/21 06:00 Intake Total 1700 ml Output Total 1000 ml Balance 700 ml Laboratory Data 24H LABS Laboratory Tests 2 03/15/21 06:05: Immature Granulocyte % (Auto) 0.5, Neutrophils (%) (Auto) 61.9, Lymphocytes (%) (Auto) 27.5, Monocytes (%) (Auto) 8.5H, Eosinophils (%) (Auto) 1.5, Basophils (%) (Auto) 0.1, Neutrophils # (Auto) 12.7H, Lymphocytes # (Auto) 5.7H, Monocytes # (Auto) 1.8H, Eosinophils # (Auto) 0.3, Basophils # (Auto) 0.0, Nucleated Red Blood Cells % (auto) 0.0, Anion Gap 8, Glomerular Filtration Rate > 60.0, Calcium Level 8.6 CBC/BMP Laboratory Tests 03/15/21 06:05 Microbiology Microbiology 03/07/21 Gram Stain - Final, Complete 03/07/21 Sputum Culture - Final, Complete Yeast Like Organism LUIS QUESADA DO Mar 15, 2021 19:03
[2021-03-15] MEDS: PARoxetine 10MG TABLET PO SCH (20:35)
[2021-03-15] MEDS: RAMELTEON 8 MG TAB (ROZEREM) PO SCH (20:35)
[2021-03-15] MEDS: hydrOXYzine 25 MG TAB PO PRN (20:36)
[2021-03-16] MEDS: IPRATROPIUM 0.5MG/ALBUTEROL 2.5MG INH SOL UD 3ML (DUONEB) NEB SCH ×4 (01:09→20:38)
[2021-03-16] MEDS: PERCOCET 5MG/325MG TAB PO PRN ×3 (03:24→20:08)
[2021-03-16 06:00] VITALS: BP 131/73
[2021-03-16] MEDS: SLF 3 ML SYR IV SCH ×3 (06:12→21:15)
[2021-03-16] MEDS: LevoFLOXacin 750 MG TABLET PO SCH (06:12)
[2021-03-16 06:35] LABS: HEMOGLOBIN 11.1 g/dl (12.0-15.5); MEAN CORPUSCULAR HEMOGLOBIN 32.6 pg (27.0-33.0); MEAN CORPUSCULAR HGB CONC 31.7 g/dl (32.0-36.5); MEAN CORPUSCULAR VOLUME 102.6 fl (80.0-96.0); PLATELET COUNT, AUTOMATED 399 10^3/uL (150-450); RED BLOOD COUNT 3.41 10^6/uL (4.00-5.40); WHITE BLOOD COUNT 22.5 10^3/uL (4.0-10.0)
[2021-03-16 06:57] LABS: BLOOD UREA NITROGEN 27 MG/DL (7-18); C REACTIVE PROTEIN QUANTITATIV 3.36 MG/DL (0.00-0.30); CALCIUM LEVEL 8.7 MG/DL (8.5-10.1); CARBON DIOXIDE LEVEL 28 MEQ/L (21-32); CHLORIDE LEVEL 103 MEQ/L (98-107); CREATININE FOR GFR 0.66 MG/DL (0.55-1.30); GLOMERULAR FILTRATION RATE > 60.0 (>51); GLUCOSE, FASTING 106 MG/DL (70-100); POTASSIUM SERUM 4.7 MEQ/L (3.5-5.1); SODIUM LEVEL 139 MEQ/L (136-145)
[2021-03-16 06:59] LABS: ERYTHROCYTE SEDIMENTATION RATE 127 mm/hr (0-30)
[2021-03-16] MEDS: ACETYLCYSTEINE 20% 4 ML VIAL (200MG/ML) INH SCH ×2 (07:12→20:38)
[2021-03-16] MEDS: SENOKOT S TAB PO SCH ×2 (08:28→20:08)
[2021-03-16] MEDS: predniSONE 20 MG TAB PO SCH (08:28)
[2021-03-16] MEDS: FLUCONAZOLE 100 MG TAB PO SCH (08:28)
[2021-03-16] MEDS: OMEPRAZOLE 20 MG CAP PO SCH ×2 (08:28→20:07)
[2021-03-16] MEDS: ENOXAPARIN 40MG/0.4ML SYRINGE (J1650 PER 10MG) SC SCH (08:29)
[2021-03-16] MEDS: SODIUM CHLORIDE NASAL 0.65% SPRAY BTL (OCEAN) SCH ×2 (08:29→20:11)
[2021-03-16] MEDS: traMADol 50 MG TAB PO PRN ×2 (08:33→15:46)
[2021-03-16 10:00] VITALS: BP 132/74
--- NOTE | 2021-03-16 10:02 | REP ---
INDICATION: pain, constipation, obstruction?. COMPARISON: None. FINDINGS: KUB shows the intestinal gas pattern to be nonspecific. There is no evidence of free intraperitoneal air. There is air density in the right upper quadrant which is curvilinear and branching. A moderate to large amount of stool seen throughout the colon. IMPRESSION: 1. Right upper quadrant air density having the appearance of pneumobilia. Previous CT scan of the chest which included the upper abdomen 03/12/2021 showed right lower lobe air bronchograms which are most consistent with the patient's plain film finding today. The CT showed right lower lobe pneumonia. 2. Moderate to large amount of colonic content. . <Electronically signed by Danny Knight > 03/16/21 0990
[2021-03-16] MEDS: MOM 30ML SUSPENSION UDC PO PRN (10:05)
[2021-03-16] MEDS: BISACODYL 10 MG SUPP PR PRN (12:57)
[2021-03-16] MEDS: MIRALAX *UNIT DOSE* 17GM PACKET PO SCH (13:53)
[2021-03-16 14:00] VITALS: BP 125/60
--- NOTE | 2021-03-16 15:16 | IPNPDOC ---
Subjective Date Seen The patient was seen on 03/16/21. Subjective Chief Complaint/HPI Mrs. Campo is a 56 year old female who is here with multifocal pneumonia. Last night, she got a little more sleep with the addition of Rozerem. Feels better this morning, but still constipated. Changed her Miralax to scheduled and added on PRN bisacodyl suppository. Objective Physical Examination General Exam: Positive: Alert, Cooperative Eye Exam: Negative: Sclera icteric Neck Exam: Positive: Supple Chest Exam: Positive: Diminished Heart Exam: Positive: Rate Normal, Normal S1, Normal S2 Abdomen Exam: Positive: Normal bowel sounds Extremity Exam: Negative: Edema Neuro Exam: Positive: Normal Speech Psych Exam: Positive: Anxiety Assessment /Plan Assessment Mrs. Campo is a 56 year old female who is here with multifocal pneumonia. She is still requiring 5L of oxygen. Will continue with antibiotics and supportive care. Plan/VTE VTE Prophylaxis Ordered?: Yes Plan 1. Multifocal community acquired pneumonia -Chlamydia pneumoniae antibody positive -Sputum culture demonstrated yeast like organisms -Levaquin for a total of 14 days. End on 03/19/21 -Fluconazole for a total of 7 days. End on 03/16/21 -Continue chest PT and IS 2. Acute hypoxic respiratory failure -Secondary to pneumonia -Requiring 5L of oxygen -Continue with prednisone -Continue with chest PT and IS 3. Nodular pulmonary opacities -Will need to have repeat CT chest 4 weeks after discharge from hospital 4. Constipation -Continue with Senokot S and Miralax -Will add on PRN milk of mag and PRN bisacodyl suppository 5. Insomnia -Continue hydroxyzine -Added on Rozerem 6. DVT ppx -Lovenox Disposition: Pending improvement in respiratory function VS, I&O, 24H, [facility] Vital Signs/I&O Vital Signs Date Time Temp Pulse Resp B/P (MAP) Pulse Ox O2 Delivery O2 Flow Rate FiO2 03/16/21 14:00 97.9 85 17 125/60 (81) 89 Nasal Cannula 5.0 03/15/21 21:00 89 I&O- Last 24 Hours up to 6 AM 03/16/21 06:00 Intake Total 1420 ml Balance 1420 ml Laboratory Data 24H LABS Laboratory Tests 2 03/16/21 06:19: Nucleated Red Blood Cells % (auto) 0.0, Erythrocyte Sedimentation Rate 127H, Anion Gap 8, Glomerular Filtration Rate > 60.0, Calcium Level 8.7, C-Reactive Protein, Quantitative 3.36H, Procalcitonin 4.23 CBC/BMP Laboratory Tests 03/16/21 06:19 Microbiology Microbiology 03/07/21 Gram Stain - Final, Complete 03/07/21 Sputum Culture - Final, Complete Yeast Like Organism LUIS QUESADA DO Mar 16, 2021 15:16
[2021-03-16 18:00] VITALS: BP 138/72
[2021-03-16] MEDS: PARoxetine 10MG TABLET PO SCH (20:07)
[2021-03-16] MEDS: RAMELTEON 8 MG TAB (ROZEREM) PO SCH (20:08)
[2021-03-16 22:00] VITALS: BP 135/73; O2SAT 90
[2021-03-17] VITALS (7 sets, daily range): BP systolic 114–133; BP diastolic 65–77; O2SAT 91
[2021-03-17] MEDS: traMADol 50 MG TAB PO PRN ×3 (01:00→13:28)
[2021-03-17] MEDS: IPRATROPIUM 0.5MG/ALBUTEROL 2.5MG INH SOL UD 3ML (DUONEB) NEB SCH ×4 (01:45→19:56)
[2021-03-17] MEDS: PERCOCET 5MG/325MG TAB PO PRN (04:21)
[2021-03-17 06:13] LABS: HEMATOCRIT 34.5 % (36.0-47.0); MEAN CORPUSCULAR HEMOGLOBIN 32.7 pg (27.0-33.0); MEAN CORPUSCULAR HGB CONC 31.9 g/dl (32.0-36.5); MEAN CORPUSCULAR VOLUME 102.7 fl (80.0-96.0); PLATELET COUNT, AUTOMATED 405 10^3/uL (150-450); RED BLOOD COUNT 3.36 10^6/uL (4.00-5.40); WHITE BLOOD COUNT 19.5 10^3/uL (4.0-10.0)
[2021-03-17 06:30] LABS: BLOOD UREA NITROGEN 25 MG/DL (7-18); CALCIUM LEVEL 8.8 MG/DL (8.5-10.1); CARBON DIOXIDE LEVEL 31 MEQ/L (21-32); CHLORIDE LEVEL 102 MEQ/L (98-107); CREATININE FOR GFR 0.62 MG/DL (0.55-1.30); GLOMERULAR FILTRATION RATE > 60.0 (>51); GLUCOSE, FASTING 85 MG/DL (70-100); POTASSIUM SERUM 4.9 MEQ/L (3.5-5.1); SODIUM LEVEL 137 MEQ/L (136-145)
[2021-03-17] MEDS: LevoFLOXacin 750 MG TABLET PO SCH (07:01)
[2021-03-17] MEDS: SLF 3 ML SYR IV SCH ×3 (07:03→22:00)
[2021-03-17] MEDS ORDERED: NS 1,000 ML IV SCH (07:35)
[2021-03-17] MEDS: ACETYLCYSTEINE 20% 4 ML VIAL (200MG/ML) INH SCH ×2 (07:44→19:56)
[2021-03-17] MEDS: OMEPRAZOLE 20 MG CAP PO SCH ×2 (08:09→21:59)
[2021-03-17] MEDS: ENOXAPARIN 40MG/0.4ML SYRINGE (J1650 PER 10MG) SC SCH (08:09)
[2021-03-17] MEDS: SENOKOT S TAB PO SCH ×2 (08:09→21:58)
[2021-03-17] MEDS: MIRALAX *UNIT DOSE* 17GM PACKET PO SCH (08:09)
[2021-03-17] MEDS: SODIUM CHLORIDE NASAL 0.65% SPRAY BTL (OCEAN) SCH ×2 (08:09→22:00)
[2021-03-17] MEDS: MOM 30ML SUSPENSION UDC PO PRN (08:09)
[2021-03-17] MEDS: predniSONE 20 MG TAB PO SCH (08:10)
[2021-03-17] MEDS ORDERED: ISOVUE-370 76% 100ML VIAL As Ordered ONE (08:25)
[2021-03-17] MEDS ORDERED: MIRALAX *UNIT DOSE* 17GM PACKET PO PRN (09:00)
--- NOTE | 2021-03-17 09:18 | REP ---
INDICATION: Persistent hypoxia. COMPARISON: 03/12/[address], 03/11/2021 chest x-ray TECHNIQUE: CT angiogram chest performed following the intravenous administration of 75 cc of Isovue 370. Sagittal and coronal reconstruction images are performed. FINDINGS: Lungs: The left lung shows a few scattered ground-glass opacities and nodules in the upper lobe with patchy interstitial infiltrates and ground-glass opacities in the lingula and lower lobe which have increased in the past 5 days. Likewise the denser consolidation in the right middle and lower lobes persistent is involving greater volume of the lower lobe and right middle lobe than on the prior study are other patchy ground-glass opacities in the right upper lobe which have increased as well. The right posterolateral pleural effusion is slightly smaller. No left effusion. Mediastinum: There is no pathologic sized mediastinal adenopathy or mass. Pulmonary arteries: The main, right and left pulmonary arteries in the mediastinum are without filling defect. Lobar, segmental and visible subsegmental arteries are without filling defect or vessel cut off. No evidence of filling defects. Jacklyn: Subcentimeter nodes at the right hilum and in the mediastinum again seen largest is a 9 mm node pretracheal/right paratracheal region. Axilla: No adenopathy. Pleura: Right effusion the same or smaller than previous study. No left effusion. Heart: Not enlarged. No pericardial thickening or effusion. Thoracic aorta: No aneurysm or dissection. A few scattered calcifications at the arch. Upper abdominal structures: A portion of liver and gallbladder was limited portion of the pancreas seen were unremarkable. Spleen is normal. Adrenal glands are unremarkable. There is some simple cysts in the left kidney and peripheral scar the upper pole the right kidney unchanged. Visualized osseous structures: No new or acute the findings in the bony thorax. IMPRESSION: No CT evidence of pulmonary embolism. Extensive dense consolidation right lower and middle lobes with some increased compared to the study 5 days ago. There also some increased areas of patchy interstitial and ground-glass infiltrates right upper lobe and in the right left lower lung zone.. Same or slightly smaller right effusion, no left effusion. <Electronically signed by Jay Carreon > 03/17/21 0914
--- NOTE | 2021-03-17 11:34 | IPNPDOC ---
Subjective Date Seen The patient was seen on 03/17/21. Subjective Chief Complaint/HPI Mrs. Campo is a 56 year old female who is here with multifocal Chlamydia pneumonia. This morning, she denies chest pain or worsening dyspnea, but still requires 6L of oxygen. She reports pleuritic chest pain in the right lower chest. Ordered for a CT angio chest which demonstrated increased consolidation in the right upper and right lower lobes. Procalcitonin trending up. ESR, CRP, and WBC still elevated. Touched base with pulmonology to take a second look at the CT angio chest. Objective Physical Examination General Exam: Positive: Alert, Cooperative Eye Exam: Negative: Sclera icteric Neck Exam: Positive: Supple Chest Exam: Positive: Diminished Heart Exam: Positive: Rate Normal, Normal S1, Normal S2 Abdomen Exam: Positive: Normal bowel sounds Extremity Exam: Negative: Edema Neuro Exam: Positive: Normal Speech Psych Exam: Positive: Anxiety Assessment /Plan Assessment Mrs. Campo is a 56 year old female who is here with multifocal chlamydia pneumonia. She is still requiring 6L of oxygen. Will continue with antibiotics and supportive care. Plan/VTE VTE Prophylaxis Ordered?: Yes Plan 1. Multifocal community acquired pneumonia -Chlamydia pneumoniae antibody positive -Sputum culture demonstrated yeast like organisms -Levaquin for a total of 14 days. End on 03/19/21 -Fluconazole for a total of 7 days. End on 03/16/21 -Continue chest PT and IS -Procalcitonin, CRP, ESR, and WBC still elevated. May need longer course of antibiotics. Touched base with pulmonology who will take a second look at the CT chest 2. Acute hypoxic respiratory failure -Secondary to pneumonia -Requiring 6L of oxygen -Continue with prednisone -Continue with chest PT and IS 3. Nodular pulmonary opacities -Will need to have repeat CT chest 4 weeks after discharge from hospital 4. Constipation -Continue with Senokot S and Miralax -Continue with PRN milk of mag and PRN bisacodyl suppository 5. Insomnia -Continue hydroxyzine -Continue Rozerem 6. DVT ppx -Lovenox Disposition: Pending improvement in respiratory function VS, I&O, 24H, Fishbone Vital Signs/I&O Vital Signs Date Time Temp Pulse Resp B/P (MAP) Pulse Ox O2 Delivery O2 Flow Rate FiO2 03/17/21 10:00 98.0 88 17 133/77 (95) 93 Nasal Cannula 6.0 03/15/21 21:00 89 I&O- Last 24 Hours up to 6 AM 03/17/21 06:00 Intake Total 650 ml Output Total 1025 ml Balance -375 ml Laboratory Data 24H LABS Laboratory Tests 2 03/17/21 05:49: Nucleated Red Blood Cells % (auto) 0.0, Anion Gap 4L, Glomerular Filtration Rate > 60.0, Calcium Level 8.8 CBC/BMP Laboratory Tests 03/17/21 05:49 Microbiology Microbiology 03/07/21 Gram Stain - Final, Complete 03/07/21 Sputum Culture - Final, Complete Yeast Like Organism LUIS QUESADA DO Mar 17, 2021 11:34
[2021-03-17] MEDS: BISACODYL 10 MG SUPP PR PRN (15:58)
[2021-03-17] MEDS: RAMELTEON 8 MG TAB (ROZEREM) PO SCH (21:59)
[2021-03-17] MEDS: PARoxetine 10MG TABLET PO SCH (21:59)
[2021-03-18] VITALS (8 sets, daily range): BP systolic 118–148; BP diastolic 69–82; O2SAT 90
[2021-03-18] MEDS: IPRATROPIUM 0.5MG/ALBUTEROL 2.5MG INH SOL UD 3ML (DUONEB) NEB SCH ×4 (01:12→19:42)
[2021-03-18] MEDS: SLF 3 ML SYR IV SCH ×3 (06:26→21:14)
[2021-03-18] MEDS: LevoFLOXacin 750 MG TABLET PO SCH (06:27)
[2021-03-18 06:33] LABS: HEMATOCRIT 37.1 % (36.0-47.0); HEMOGLOBIN 11.8 g/dl (12.0-15.5); MEAN CORPUSCULAR HEMOGLOBIN 32.6 pg (27.0-33.0); MEAN CORPUSCULAR HGB CONC 31.8 g/dl (32.0-36.5); MEAN CORPUSCULAR VOLUME 102.5 fl (80.0-96.0); PLATELET COUNT, AUTOMATED 443 10^3/uL (150-450); RED BLOOD COUNT 3.62 10^6/uL (4.00-5.40)
[2021-03-18 06:55] LABS: BLOOD UREA NITROGEN 20 MG/DL (7-18); CARBON DIOXIDE LEVEL 29 MEQ/L (21-32); CHLORIDE LEVEL 105 MEQ/L (98-107); CREATININE FOR GFR 0.63 MG/DL (0.55-1.30); GLOMERULAR FILTRATION RATE > 60.0 (>51); GLUCOSE, FASTING 82 MG/DL (70-100); SODIUM LEVEL 140 MEQ/L (136-145)
[2021-03-18] MEDS: ACETYLCYSTEINE 20% 4 ML VIAL (200MG/ML) INH SCH ×2 (07:24→19:41)
[2021-03-18] MEDS: OMEPRAZOLE 20 MG CAP PO SCH ×2 (10:24→21:14)
[2021-03-18] MEDS: SENOKOT S TAB PO SCH ×2 (10:24→21:14)
[2021-03-18] MEDS: ENOXAPARIN 40MG/0.4ML SYRINGE (J1650 PER 10MG) SC SCH (10:24)
[2021-03-18] MEDS: predniSONE 10 MG TAB PO SCH (10:25)
[2021-03-18] MEDS: MIRALAX *UNIT DOSE* 17GM PACKET PO SCH (10:25)
[2021-03-18] MEDS: SODIUM CHLORIDE NASAL 0.65% SPRAY BTL (OCEAN) SCH ×2 (10:26→21:13)
[2021-03-18] MEDS ORDERED: VANCOMYCIN HCL 1,000 MG, VIAL MATE ADAPTER 1 EACH in NS 250 ML IV SCH (12:00)
--- NOTE | 2021-03-18 13:40 | IPN ---
PULMONARY PROGRESS NOTE DATE: 03/18/2021 SUBJECTIVE: The patient was seen and examined this morning during bedside rounds. Pulmonary was re-consulted because patient was noted to have increasing oxygen requirements over the past several days. This morning she was up to 7 liters a minute now with her nasal cannula oxygen. When patient was last seen she was weaned down to 4-5 liters a minute nasal cannula oxygen. There was some concern about the rapid taper of prednisone so she was increased on her prednisone to a high dose of steroids with no improvement in her oxygenation. Patient did have repeat imaging done as well yesterday with the CT angio which did not show any evidence of PE. This morning patient states that she has not had any significant change in her shortness of breath or dyspnea on exertion. She does desaturate still with activity. She does continue to have a productive cough with loose sputum that is generally white in color or foamy with some mucus plugs noted. In general the mucus production has decreased from her initial presentation here, but it is still fairly copious. She does also have some improvement in the right sided chest pain that she was having with deep inspiration. She does still have pain, but not as much of the sharp stabbing that she was noticing previously. She was receiving p.r.n. opioid pain medication; however, was having issues with constipation so has not taken any for the past 2 days. She is still using her acapella device and the incentive spirometer as well as nebulized bronchodilators and mucolytics. She has not used the percussion vest; however, in the past few days, but is still able to bring up mucus. Patient otherwise denies any fevers or chills overnight. She has not had any episodes of hemoptysis. She denies noticing any increased lower extremity edema or orthopnea. PHYSICAL EXAMINATION: Vitals: Temperature 97.9, T-max was 99 this morning, pulse 81, respirations 16, blood pressure 148/62, O2 sat 88% on 7 liters nasal cannula. In 650 mL, out 3.3, net negative 2.7 liters. General: Patient is a thin female, is sitting in bed awake, alert and oriented times 3. She is speaking in complete sentences and does not appear to be using any accessory muscles for respiration. HEENT: Normocephalic, atraumatic. There is moist mucous membranes noted. Neck: Supple, trachea is midline, no obvious JVD. Cardiovascular: Regular rate and rhythm, normal S1 and S2 with no appreciable murmurs. Pulmonary: There are crackles noted bilaterally with some more diminished breath sounds posteriorly on the right. There is no significant wheezing noted and there is less rhonchi. Abdomen: Soft, nontender, nondistended, no palpable mass. Extremities: There is no significant lower extremity edema noted bilaterally. LABS: WBC 20, hemoglobin 11.8, platelets 443. Chemistries: Sodium 140, potassium 4, chloride 105, bicarb 29, BUN 20, creatinine 0.63, glucose 82. Procalcitonin increased to 4.23. Repeat sputum culture gram stain is negative. IMAGING: CT angio performed yesterday shows no evidence of PE. There is a few scattered ground glass opacities and nodules in the left upper lobe with more patchy interstitial infiltrates and ground glass opacities in the lingula and lower lobe which do appear increased compared to the prior CT from 03/11/2021. The areas of more dense consolidation in the right middle and the right lower lobe is noted again with perhaps a slight increase as well as patchy ground glass opacities noted in the right upper lobe. There is some suggestion of almost more cystic changes as noted previously in the right middle lobe. There is improvement in the previously noted small pleural effusion on the right side with no significant pleural effusion noted now on the right. There is no significant mediastinal adenopathy noted. ASSESSMENT AND PLAN: Ms. Campo is a 55-year-old female with the history of nicotine dependence and suspected COPD who presented with worsening cough, shortness of breath and acute hypoxic respiratory failure in the setting of multifocal community acquired pneumonia and a possible COPD exacerbation. 1. Multifocal community acquired pneumonia: Patient has been on various broad spectrum antibiotics for her pneumonia. Initially she had received doxycycline and then was on ceftriaxone and azithromycin before being continued with just ceftriaxone. She was then changed to Levaquin and vancomycin at one point before being continued with just the Levaquin most recently. Patient did also receive a week of fluconazole for yeast like organisms and her sputum. Her other sputum cultures have not shown any other bacterial organisms. Her work-up for atypical pneumonia was positive for Chlamydia pneumoniae, but the Legionella and mycoplasma were negative. Patient did also have a MRSA screen which was negative. Patient was having some clinical improvement in her leukocytosis and procalcitonin as well as on imaging and with her oxygenation previously. She was to be continued with Levaquin; however, has been having worsening hypoxia and the repeated CT did show some increase in the patchy interstitial infiltrates particularly on the left side with some questionable increase as well as in the more denser areas of involvement and consolidation on the right. She does have an increase as well in her procalcitonin now and her white count had also been trending up slightly. Given her worsening hypoxia and suspicion for worsening bacterial infection with the procalcitonin being increased would broaden her even further to vancomycin and meropenem. She has on appearance more of a necrotic pneumonia process which could be consistent with a MRSA although all her cultures and screen has been negative. There is the possibility that she has been intermittently treated with antibiotics during her admission making her cultures negative, but not enough to fully clear. With her clinical course and imaging there may also potentially be an endobronchial lesion contributing that is not clearly seen on imaging although somewhat less likely. She may need bronchoscopy at some point for evaluation; however, with her significant hypoxemic respiratory failure there is some increased risk with worsening respiratory failure and need for mechanical ventilation with bronchoscopy. There is the possibility that some of the worsening infiltrates on the left side may be due to spill over from her copious mucus secretions. She did have some episodes in the past where her left sided airspace disease had worsened and then significantly improved in the course of 1 day with the use of mucus clearance techniques. She did also have a work-up for concern for possible aspiration contributing with an evaluation by speech and swallow and a cookie swallow which was negative. Would continue with mucus clearance with nebulized bronchodilators and Mucomyst. She will continue with acapella device and incentive spirometer and patient was educated again about the importance of using incentive spirometer correctly. Would continue with Percocet p.r.n. for pain control. We did discuss the importance of adequate pain control to help with atelectasis. She does have issues with constipation and so may need further adjustment in her bowel regimen. 2. History of nicotine dependence and suspected COPD with a possible acute exacerbation: Patient was on a tapered dose of prednisone which was then increased given her worsening hypoxia. She did not have significant improvement with the increase in prednisone. She does not have any wheezing still on exam and so would continue with tapering of steroids. She also did not have any imaging improvement with the increase in her prednisone. Continue tapering prednisone. We will wean down to 30 mg daily and continue a slow taper. Continue with nebulized bronchodilators. 3. Acute hypoxemic respiratory failure in the setting of multifocal pneumonia: Patient has been requiring increasing nasal cannula oxygen supplementation. We will continue to wean down O2 as tolerated to maintain an O2 sat above 88%. DVT prophylaxis: Lovenox. CODE STATUS: Full Code.
[2021-03-18] MEDS: MEROPENEM INJ 1 GM in IV 1 EA IV SCH ×2 (14:06→21:14)
[2021-03-18] MEDS: VANCOMYCIN HCL 750 MG, VIAL MATE ADAPTER 1 EACH in NS 250 ML IV SCH ×2 (15:30→22:05)
[2021-03-18] MEDS ORDERED: VANCOMYCIN HCL 500 MG in D5W MINI-BAG PLUS 100 ML IV ONE (17:00)
--- NOTE | 2021-03-18 17:31 | IPNPDOC ---
Subjective Date Seen The patient was seen on 03/18/21. Subjective Chief Complaint/HPI Mrs. Campo is a 56 year old female who is here with multifocal Chlamydia pneumonia. Patient was seen in the morning. She was not feeling well and her oxygen requirements when up to 7L NC. Requested pulmonology to take a second look at her since her condition was worsening. Objective Physical Examination General Exam: Positive: Alert, Cooperative Eye Exam: Negative: Sclera icteric Neck Exam: Positive: Supple Chest Exam: Positive: Diminished Heart Exam: Positive: Rate Normal, Normal S1, Normal S2 Abdomen Exam: Positive: Normal bowel sounds Extremity Exam: Negative: Edema Neuro Exam: Positive: Normal Speech Psych Exam: Positive: Anxiety Assessment /Plan Assessment Mrs. Campo is a 56 year old female who is here with multifocal chlamydia pneumonia. She is requiring 7L of oxygen. Despite being on antibiotics and antifungals, her CT shows increasing infiltrate. Leukocytosis has not improved. Inflammatory markers elevated and Procalcitonin trending upwards. Pulmonary reconsulted, recommendations appreciated. Plan/VTE VTE Prophylaxis Ordered?: Yes Plan 1. Multifocal community acquired pneumonia -Chlamydia pneumoniae antibody positive -Sputum culture demonstrated yeast like organisms. Fluconazole for a total of 7 days. End on 03/16/21 -Requested pulmonology to take a second look at patient. Recommendations appreciated -Antibiotics switched to Meropenem and Vancomycin -Continue acapella and IS 2. Acute hypoxic respiratory failure -Secondary to pneumonia -Requiring 7L of oxygen -Requested pulmonology to take a second look at patient. Recommendations appreciated -Continue with prednisone -Continue with acapella and IS -Continue with nebulized bronchodilators and Mucomyst 3. Nodular pulmonary opacities -Will need to have repeat CT chest 4 weeks after discharge from hospital 4. Constipation -Continue with Senokot S and Miralax -Continue with PRN milk of mag and PRN bisacodyl suppository 5. Insomnia -Continue hydroxyzine -Continue Rozerem 6. DVT ppx -Lovenox Disposition: Pending improvement in respiratory function VS, I&O, 24H, Fishbone Vital Signs/I&O Vital Signs Date Time Temp Pulse Resp B/P (MAP) Pulse Ox O2 Delivery O2 Flow Rate FiO2 03/18/21 14:00 97.9 94 21 120/69 (86) 90 Nasal Cannula 7.0 03/15/21 21:00 89 I&O- Last 24 Hours up to 6 AM 03/18/21 06:00 Intake Total 750 ml Output Total 2925 ml Balance -2175 ml Laboratory Data 24H LABS Laboratory Tests 2 03/18/21 06:05: Nucleated Red Blood Cells % (auto) 0.0, Anion Gap 6L, Glomerular Filtration Rate > 60.0, Calcium Level 9.0 CBC/BMP Laboratory Tests 03/18/21 06:05 Microbiology Microbiology 03/17/21 Gram Stain - Final, Resulted 03/17/21 Sputum Culture, Resulted Pending LUIS QUESADA DO Mar 18, 2021 17:31
[2021-03-18] MEDS: RAMELTEON 8 MG TAB (ROZEREM) PO SCH (21:13)
[2021-03-18] MEDS: PARoxetine 10MG TABLET PO SCH (21:14)
[2021-03-19] VITALS (7 sets, daily range): BP systolic 101–138; BP diastolic 57–89; O2SAT 92
[2021-03-19] MEDS: IPRATROPIUM 0.5MG/ALBUTEROL 2.5MG INH SOL UD 3ML (DUONEB) NEB SCH ×4 (01:50→19:42)
[2021-03-19 06:19] LABS: HEMATOCRIT 36.1 % (36.0-47.0); HEMOGLOBIN 11.5 g/dl (12.0-15.5); MEAN CORPUSCULAR HEMOGLOBIN 32.4 pg (27.0-33.0); MEAN CORPUSCULAR HGB CONC 31.9 g/dl (32.0-36.5); MEAN CORPUSCULAR VOLUME 101.7 fl (80.0-96.0); PLATELET COUNT, AUTOMATED 458 10^3/uL (150-450); RED BLOOD COUNT 3.55 10^6/uL (4.00-5.40); WHITE BLOOD COUNT 19.2 10^3/uL (4.0-10.0)
[2021-03-19] MEDS: SLF 3 ML SYR IV SCH ×3 (06:34→22:00)
[2021-03-19] MEDS: MEROPENEM INJ 1 GM in IV 1 EA IV SCH ×3 (06:36→23:08)
[2021-03-19 06:48] LABS: BLOOD UREA NITROGEN 22 MG/DL (7-18); CALCIUM LEVEL 8.8 MG/DL (8.5-10.1); CARBON DIOXIDE LEVEL 28 MEQ/L (21-32); CHLORIDE LEVEL 106 MEQ/L (98-107); GLOMERULAR FILTRATION RATE > 60.0 (>51); GLUCOSE, FASTING 88 MG/DL (70-100); POTASSIUM SERUM 3.8 MEQ/L (3.5-5.1); SODIUM LEVEL 139 MEQ/L (136-145)
[2021-03-19] MEDS: VANCOMYCIN HCL 750 MG, VIAL MATE ADAPTER 1 EACH in NS 250 ML IV SCH ×3 (07:18→21:37)
[2021-03-19] MEDS: ACETYLCYSTEINE 20% 4 ML VIAL (200MG/ML) INH SCH ×2 (07:35→19:42)
[2021-03-19] MEDS: SENOKOT S TAB PO SCH ×2 (08:49→21:37)
[2021-03-19] MEDS: OMEPRAZOLE 20 MG CAP PO SCH ×2 (08:49→21:37)
[2021-03-19] MEDS: predniSONE 10 MG TAB PO SCH (08:49)
[2021-03-19] MEDS: ENOXAPARIN 40MG/0.4ML SYRINGE (J1650 PER 10MG) SC SCH (08:50)
[2021-03-19] MEDS: MIRALAX *UNIT DOSE* 17GM PACKET PO SCH (08:50)
[2021-03-19] MEDS: SODIUM CHLORIDE NASAL 0.65% SPRAY BTL (OCEAN) SCH ×2 (08:51→21:38)
--- NOTE | 2021-03-19 09:53 | IPNPDOC ---
Subjective Date Seen The patient was seen on 03/19/21. Subjective Chief Complaint/HPI Mrs. Campo is a 56 year old female who is here with multifocal Chlamydia pneumonia. This morning, patient was very anxious, because her oxygen r equirements increased to 8L NC. We discussed oxygen therapy and mucus plugging. Otherwise, she has ronchi on auscultation but no wheezing, but this was after she had a breathing treatment. Objective Physical Examination General Exam: Positive: Alert, Cooperative Eye Exam: Negative: Sclera icteric Neck Exam: Positive: Supple Chest Exam: Positive: Rhonchi Heart Exam: Positive: Rate Normal, Normal S1, Normal S2 Abdomen Exam: Positive: Normal bowel sounds Extremity Exam: Negative: Edema Neuro Exam: Positive: Normal Speech Psych Exam: Positive: Anxiety Assessment /Plan Assessment Mrs. Campo is a 56 year old female who is here with multifocal chlamydia pneumonia. She is requiring 7L of oxygen. Despite being on antibiotics and antifungals, her CT shows increasing infiltrate. Leukocytosis has not improved. Inflammatory markers elevated and Procalcitonin trending upwards. Pulmonary reconsulted, recommendations appreciated. Patient may have mucus plugging causing her oxygen requirements to go upwards. Continue with mucolytics and breathing treatments. Plan/VTE VTE Prophylaxis Ordered?: Yes Plan 1. Multifocal community acquired pneumonia -Chlamydia pneumoniae antibody positive -Sputum culture demonstrated yeast like organisms. Fluconazole for a total of 7 days. End on 03/16/21 -Pulmonary reconsulted. Recommendations appreciated -Antibiotics switched to Meropenem and Vancomycin day 1 -Continue acapella and IS -Repeat sputum culture on 03/17 grew normal nader 2. Acute hypoxic respiratory failure -Secondary to pneumonia -Requiring 8L of oxygen -Pulmonary reconsulted. Recommendations appreciated -Continue with prednisone -Continue with acapella and IS -Continue with nebulized bronchodilators and Mucomyst 3. Nodular pulmonary opacities -Will need to have repeat CT chest 4 weeks after discharge from hospital 4. Constipation -Continue with Senokot S and Miralax -Continue with PRN milk of mag and PRN bisacodyl suppository 5. Insomnia -Continue hydroxyzine -Continue Rozerem 6. DVT ppx -Lovenox Disposition: Pending improvement in respiratory function VS, I&O, 24H, Fishbone Vital Signs/I&O Vital Signs Date Time Temp Pulse Resp B/P (MAP) Pulse Ox O2 Delivery O2 Flow Rate FiO2 03/19/21 06:00 98.3 85 18 125/89 (101) 88 Nasal Cannula 8.0 03/15/21 21:00 89 I&O- Last 24 Hours up to 6 AM 03/19/21 06:00 Intake Total 1175 ml Output Total 1100 ml Balance 75 ml Laboratory Data 24H LABS Laboratory Tests 2 03/19/21 05:57: Nucleated Red Blood Cells % (auto) 0.0, Anion Gap 5L, Glomerular Filtration Rate > 60.0, Calcium Level 8.8 CBC/BMP Laboratory Tests 03/19/21 05:57 Microbiology Microbiology 03/17/21 Gram Stain - Final, Complete 03/17/21 Sputum Culture - Final, Complete LUIS QUESADA DO Mar 19, 2021 09:53
--- NOTE | 2021-03-19 11:39 | IPN ---
PULMONARY SERVICE NOTE DATE: 03/19/2021 SUBJECTIVE: The patient is seen in the hospital bed, it is hospital day #23. She is resting without new complaint today. OBJECTIVE: VITAL SIGNS: Her temperature is 98, pulse is 85, respirations are 18, blood pressure is 125/89. INTAKE AND OUTPUT: I and O's for the past 24 hours: 1325 in, 950 out, since midnight 0 in, 1550 out. GENERAL: She is ill-appearing. HEENT: Her oral mucosa is pink. NECK: Supple. No stridor. HEART: Regular without appreciable murmur. LUNGS: Breath sounds diminished in the right lower lung, otherwise essentially clear. The expiratory phase is prolonged. Chest is increased in its AP diameter. ABDOMEN: Soft. EXTREMITIES: No significant edema. DIAGNOSTIC STUDIES: Sodium is 139, potassium is 3.8, chloride is 106, CO2 28, BUN 22, creatinine 0.6, glucose is 88, white cell count is down to 19.2, hemoglobin is stable at 11.5, hematocrit 36.1, platelet count is 458,000. MEDICATIONS: On review of medications, this is day #2 of Meropenem, day #2 of Vancomycin. She is receiving prednisone 30 mg a day and DuoNeb. ASSESSMENT: 1. Necrotizing pneumonia of the right lower lobe. Cultures are pending but she does appear to be responding to Meropenem and Vancomycin. I would recommend that they be continued. We will continue to follow. She may benefit from bronchoscopic evaluation if the infiltrate on the chest x-ray persists. 2. Chronic obstructive pulmonary disease, I recommend continuing bronchodilator therapy. We will continue to follow her course during her hospitalization.
--- NOTE | 2021-03-19 11:56 | HPE ---
HISTORY AND PHYSICAL DATE OF ADMISSION: 02/24/2021 PRIMARY CARE PROVIDER: [facility]. CHIEF COMPLAINT: Multifocal community-acquired pneumonia. HISTORY: Bette Campo has been coughing for months for frothy sputum. She is increasingly short of breath. She has been treated for allergies and reflux by primary care provider. She went to an urgent care today. Chest x-ray showed multifocal pneumonia, primarily right-sided, as well as some on the left. She was hypoxemic, oxygen saturation 85% on room air. She was referred for admission. She denies hemoptysis. She is more short of breath over the last month. Denies involuntary weight loss or wheezing. PAST MEDICAL HISTORY: Essentially benign. Has some mild depression, for which she has taken paroxetine. Is being treated empirically for reflux with omeprazole with no improvement in her cough. Is treated empirically with Singulair and loratadine with no improvement in her cough. ALLERGIES: None to any medicines. HOME MEDICATIONS: - paroxetine 20 mg every night - omeprazole 20 mg daily - Singulair 10 mg daily - Claritin 10 mg daily - famotidine 40 mg daily SOCIAL HISTORY: She smokes half a pack a day. No alcohol. 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 REVIEW OF SYSTEMS: above. Otherwise negative. FAMILY HISTORY: Negative for any cancers. Diabetes hypertension. PHYSICAL EXAMINATION: Vital signs per flow sheet. She looks mildly ill. Resting comfortably. HEENT: Unremarkable. NECK: No masses. No carotid bruits. LUNGS: Have rhonchi and rales on the right side, a few scattered on the left. Good air movement. No retractions. HEART: Regular rate and rhythm. No murmur. ABDOMEN: Soft, nontender. No masses. EXTREMITIES: No clubbing, cyanosis, or edema. Normal strength in the arms and legs. LABORATORY DATA: White count 29,000, hemoglobin 11.8, platelets 466. Sodium 134, potassium 3.7, BUN 16, creatinine 0.4, lactic acid 1.2. COVID screen is negative. Chest x-ray shows right greater than left multifocal infiltrates. CT of the chest is pending. IMPRESSION: 1. Community-acquired pneumonia. I was told CT of the chest was ordered by the emergency room (ER). I do not see where that order has actually been put in, so we will reorder this. Long smoking history. Concerned about underlying malignancy. COVID test is also pending. Procalcitonin order has been entered. Begin empiric treatment with Rocephin 2 grams intravenous (IV) daily and doxycycline 100 mg every 12 hours. Nebulized bronchodilators have been ordered. Empiric steroid therapy. Solu-Medrol 40 mg IV daily for 5 days also started. 2. Tobacco abuse. Importance of smoking cessation discussed. 3. History of depression. Continue her paroxetine. 4. Question allergies. I think her cough is probably explained by a lung process than allergies. I am stopping the Singulair and Claritin. MTDD
[2021-03-19] MEDS: PARoxetine 10MG TABLET PO SCH (21:37)
[2021-03-19] MEDS: RAMELTEON 8 MG TAB (ROZEREM) PO SCH (21:37)
[2021-03-20] VITALS (7 sets, daily range): BP systolic 112–124; BP diastolic 66–78; O2SAT 91
[2021-03-20] MEDS: IPRATROPIUM 0.5MG/ALBUTEROL 2.5MG INH SOL UD 3ML (DUONEB) NEB SCH ×4 (00:52→20:07)
[2021-03-20] MEDS: MEROPENEM INJ 1 GM in IV 1 EA IV SCH ×3 (04:40→20:08)
[2021-03-20] MEDS: VANCOMYCIN HCL 750 MG, VIAL MATE ADAPTER 1 EACH in NS 250 ML IV SCH ×3 (05:27→21:30)
[2021-03-20] MEDS: SLF 3 ML SYR IV SCH ×3 (05:27→20:10)
[2021-03-20 06:26] LABS: HEMATOCRIT 36.3 % (36.0-47.0); HEMOGLOBIN 11.5 g/dl (12.0-15.5); MEAN CORPUSCULAR HEMOGLOBIN 32.1 pg (27.0-33.0); MEAN CORPUSCULAR HGB CONC 31.7 g/dl (32.0-36.5); MEAN CORPUSCULAR VOLUME 101.4 fl (80.0-96.0); PLATELET COUNT, AUTOMATED 475 10^3/uL (150-450); RED BLOOD COUNT 3.58 10^6/uL (4.00-5.40); WHITE BLOOD COUNT 19.8 10^3/uL (4.0-10.0)
[2021-03-20 06:53] LABS: BLOOD UREA NITROGEN 20 MG/DL (7-18); CALCIUM LEVEL 8.6 MG/DL (8.5-10.1); CARBON DIOXIDE LEVEL 27 MEQ/L (21-32); CHLORIDE LEVEL 106 MEQ/L (98-107); CREATININE FOR GFR 0.62 MG/DL (0.55-1.30); GLOMERULAR FILTRATION RATE > 60.0 (>51); GLUCOSE, FASTING 127 MG/DL (70-100); POTASSIUM SERUM 4.2 MEQ/L (3.5-5.1); SODIUM LEVEL 139 MEQ/L (136-145)
[2021-03-20] MEDS: ACETYLCYSTEINE 20% 4 ML VIAL (200MG/ML) INH SCH ×2 (07:35→20:13)
[2021-03-20] MEDS: MIRALAX *UNIT DOSE* 17GM PACKET PO SCH (09:31)
[2021-03-20] MEDS: predniSONE 10 MG TAB PO SCH (09:31)
[2021-03-20] MEDS: OMEPRAZOLE 20 MG CAP PO SCH ×2 (09:31→20:09)
[2021-03-20] MEDS: SENOKOT S TAB PO SCH ×2 (09:31→20:09)
[2021-03-20] MEDS: ENOXAPARIN 40MG/0.4ML SYRINGE (J1650 PER 10MG) SC SCH (09:32)
[2021-03-20] MEDS: SODIUM CHLORIDE NASAL 0.65% SPRAY BTL (OCEAN) SCH ×2 (09:32→20:09)
--- NOTE | 2021-03-20 13:10 | IPNPDOC ---
Subjective Date Seen The patient was seen on 03/20/21. Subjective Chief Complaint/HPI Mrs. Campo is a 56 year old female who is here with multifocal Chlamydia pneumonia complicated by necrotizing pneumonia. This morning, she required 8L of oxygen. She reports some dyspnea. The pleuritic chest pain is improving, but still there. Objective Physical Examination General Exam: Positive: Alert, Cooperative Eye Exam: Negative: Sclera icteric Neck Exam: Positive: Supple Chest Exam: Positive: Rhonchi Heart Exam: Positive: Rate Normal, Normal S1, Normal S2 Abdomen Exam: Positive: Normal bowel sounds Extremity Exam: Negative: Edema Neuro Exam: Positive: Normal Speech Psych Exam: Positive: Anxiety Assessment /Plan Assessment Mrs. Campo is a 56 year old female who is here with multifocal chlamydia pneumonia. She is requiring 8L of oxygen. Despite being on antibiotics and antifungals, her CT shows increasing infiltrate. Leukocytosis has not improved. Inflammatory markers elevated and Procalcitonin trending upwards. Pulmonary reconsulted, recommendations appreciated. Suspecting patient to have necrotizing pneumonia. Antibiotics were escalated. Patient may also have mucus plugging causing her oxygen requirements to go upwards. Continue with mucolytics and breathing treatments. Plan/VTE VTE Prophylaxis Ordered?: Yes Plan 1. Multifocal community acquired pneumonia -Chlamydia pneumoniae antibody positive -Sputum culture demonstrated yeast like organisms. Fluconazole for a total of 7 days. End on 03/16/21 -Pulmonary reconsulted. Recommendations appreciated -Antibiotics switched to Meropenem and Vancomycin day 2 -Continue acapella and IS -Repeat sputum culture on 03/17 grew normal nader 2. Acute hypoxic respiratory failure -Secondary to pneumonia -Requiring 8L of oxygen -Pulmonary reconsulted. Recommendations appreciated -Continue with prednisone -Continue with acapella and IS -Continue with nebulized bronchodilators and Mucomyst 3. Nodular pulmonary opacities -Will need to have repeat CT chest 4 weeks after discharge from hospital 4. Constipation -Continue with Senokot S and Miralax -Continue with PRN milk of mag and PRN bisacodyl suppository 5. Insomnia -Continue hydroxyzine -Continue Rozerem 6. DVT ppx -Lovenox Disposition: Pending improvement in respiratory function VS, I&O, 24H, Fishbone Vital Signs/I&O Vital Signs Date Time Temp Pulse Resp B/P (MAP) Pulse Ox O2 Delivery O2 Flow Rate FiO2 03/20/21 10:00 98.3 83 20 121/70 (87) 90 High Flow Cannula 8.0 03/15/21 21:00 89 I&O- Last 24 Hours up to 6 AM 03/20/21 06:00 Intake Total 1761 ml Output Total 1650 ml Balance 111 ml Laboratory Data 24H LABS Laboratory Tests 2 03/19/21 14:16: Vancomycin Level Trough 10.7 03/20/21 06:03: Nucleated Red Blood Cells % (auto) 0.0, Anion Gap 6L, Glomerular Filtration Rate > 60.0, Calcium Level 8.6 03/20/21 12:10: CBC/BMP Laboratory Tests 03/20/21 06:03 Microbiology Microbiology 03/17/21 Gram Stain - Final, Complete 03/17/21 Sputum Culture - Final, Complete LUIS QUESADA DO Mar 20, 2021 13:10
[2021-03-20] MEDS: RAMELTEON 8 MG TAB (ROZEREM) PO SCH (20:09)
[2021-03-20] MEDS: PARoxetine 10MG TABLET PO SCH (20:09)
[2021-03-21] VITALS (8 sets, daily range): BP systolic 113–136; BP diastolic 68–78; O2SAT 90–92
[2021-03-21] MEDS: IPRATROPIUM 0.5MG/ALBUTEROL 2.5MG INH SOL UD 3ML (DUONEB) NEB SCH ×4 (01:12→19:20)
[2021-03-21] MEDS: MEROPENEM INJ 1 GM in IV 1 EA IV SCH ×3 (04:18→20:26)
[2021-03-21] MEDS: SLF 3 ML SYR IV SCH ×3 (04:19→22:17)
[2021-03-21] MEDS: VANCOMYCIN HCL 750 MG, VIAL MATE ADAPTER 1 EACH in NS 250 ML IV SCH ×3 (05:44→22:17)
[2021-03-21 06:22] LABS: HEMATOCRIT 36.7 % (36.0-47.0); HEMOGLOBIN 11.7 g/dl (12.0-15.5); MEAN CORPUSCULAR HEMOGLOBIN 32.6 pg (27.0-33.0); MEAN CORPUSCULAR HGB CONC 31.9 g/dl (32.0-36.5); MEAN CORPUSCULAR VOLUME 102.2 fl (80.0-96.0); PLATELET COUNT, AUTOMATED 503 10^3/uL (150-450); RED BLOOD COUNT 3.59 10^6/uL (4.00-5.40); WHITE BLOOD COUNT 20.2 10^3/uL (4.0-10.0)
[2021-03-21 06:59] LABS: ERYTHROCYTE SEDIMENTATION RATE 68 mm/hr (0-30)
[2021-03-21 07:01] LABS: BLOOD UREA NITROGEN 21 MG/DL (7-18); C REACTIVE PROTEIN QUANTITATIV 0.48 MG/DL (0.00-0.30); CALCIUM LEVEL 8.2 MG/DL (8.5-10.1); CARBON DIOXIDE LEVEL 26 MEQ/L (21-32); CHLORIDE LEVEL 110 MEQ/L (98-107); CREATININE FOR GFR 0.52 MG/DL (0.55-1.30); GLOMERULAR FILTRATION RATE > 60.0 (>51); GLUCOSE, FASTING 85 MG/DL (70-100); POTASSIUM SERUM 4.6 MEQ/L (3.5-5.1); SODIUM LEVEL 141 MEQ/L (136-145)
[2021-03-21] MEDS: ACETYLCYSTEINE 20% 4 ML VIAL (200MG/ML) INH SCH ×2 (07:31→19:21)
[2021-03-21 08:13] LABS: NT-PRO BNP 66 PG/ML (<125)
[2021-03-21] MEDS: SENOKOT S TAB PO SCH ×2 (09:12→20:26)
[2021-03-21] MEDS: guaiFENesin ER 600 MG TAB PO SCH ×2 (09:12→20:25)
[2021-03-21] MEDS: ENOXAPARIN 40MG/0.4ML SYRINGE (J1650 PER 10MG) SC SCH (09:12)
[2021-03-21] MEDS: OMEPRAZOLE 20 MG CAP PO SCH ×2 (09:12→20:25)
[2021-03-21] MEDS: SODIUM CHLORIDE NASAL 0.65% SPRAY BTL (OCEAN) SCH ×2 (09:13→20:27)
[2021-03-21] MEDS: predniSONE 10 MG TAB PO SCH (09:13)
[2021-03-21] MEDS: MIRALAX *UNIT DOSE* 17GM PACKET PO SCH (09:13)
--- NOTE | 2021-03-21 10:22 | IPNPDOC ---
Subjective Date Seen The patient was seen on 03/21/21. Subjective Chief Complaint/HPI Mrs. Campo is a 56 year old female who is here with multifocal Chlamydia pneumonia complicated by necrotizing pneumonia. This morning, she feels that breathing is better. The pleuritic chest pain resolved. She is still on 8L. She is hopeful and try to use the IS and diaphragmatic breathing as much as she can. Otherwise, she has not been sleeping well at night. She requested increasing Rozerem. The max dose of Rozerem is 8mg which she is currently on. Will try adding on Trazodone instead. Objective Physical Examination General Exam: Positive: Alert, Cooperative Eye Exam: Negative: Sclera icteric Neck Exam: Positive: Supple Chest Exam: Positive: Rhonchi Heart Exam: Positive: Rate Normal, Normal S1, Normal S2 Abdomen Exam: Positive: Normal bowel sounds Extremity Exam: Negative: Edema Neuro Exam: Positive: Normal Speech Psych Exam: Positive: Anxiety Assessment /Plan Assessment Mrs. Campo is a 56 year old female who is here with multifocal chlamydia pneumonia. She is requiring 8L of oxygen. Despite being on antibiotics and antifungals, her CT shows increasing infiltrate. Leukocytosis has not improved. Inflammatory markers elevated and Procalcitonin trending upwards. Pulmonary reconsulted, recommendations appreciated. Suspecting patient to have necrotizing pneumonia. Antibiotics were escalated. Patient may also have mucus plugging causing her oxygen requirements to go upwards. Continue with mucolytics and breathing treatments. Plan/VTE VTE Prophylaxis Ordered?: Yes Plan 1. Multifocal community acquired pneumonia -Chlamydia pneumoniae antibody positive -Sputum culture demonstrated yeast like organisms. Fluconazole for a total of 7 days. End on 03/16/21 -Pulmonary reconsulted. Recommendations appreciated -Antibiotics switched to Meropenem and Vancomycin day 3 -Continue acapella and IS -Repeat sputum culture on 03/17 grew normal nader 2. Acute hypoxic respiratory failure -Secondary to pneumonia -Requiring 8L of oxygen -Pulmonary reconsulted. Recommendations appreciated -Continue with prednisone -Continue with acapella and IS -Continue with nebulized bronchodilators and Mucomyst 3. Nodular pulmonary opacities -Will need to have repeat CT chest 4 weeks after discharge from hospital 4. Constipation -Continue with Senokot S and Miralax -Continue with PRN milk of mag and PRN bisacodyl suppository 5. Insomnia -Continue hydroxyzine -Continue Rozerem -Added on Trazodone 6. DVT ppx -Lovenox Disposition: Pending improvement in respiratory function. Will check a procalcitonin tomorrow. VS, I&O, 24H, Fishbone Vital Signs/I&O Vital Signs Date Time Temp Pulse Resp B/P (MAP) Pulse Ox O2 Delivery O2 Flow Rate FiO2 03/21/21 06:00 97.6 80 21 129/75 (93) 89 High Flow Cannula 8.0 03/15/21 21:00 89 I&O- Last 24 Hours up to 6 AM 03/21/21 05:59 Intake Total 990 ml Output Total 100 ml Balance 890 ml Laboratory Data 24H LABS Laboratory Tests 2 03/20/21 12:10: Vancomycin Level Trough 16.7 03/21/21 05:59: Nucleated Red Blood Cells % (auto) 0.0, Erythrocyte Sedimentation Rate 68H, Anion Gap 5L, Glomerular Filtration Rate > 60.0, Calcium Level 8.2L, C-Reactive Protein, Quantitative 0.48H, WL-Mei-K-Type Natriuretic Peptide 66 CBC/BMP Laboratory Tests 03/21/21 05:59 Microbiology Microbiology 03/17/21 Gram Stain - Final, Complete 03/17/21 Sputum Culture - Final, Complete LUIS QUESADA DO Mar 21, 2021 10:22
[2021-03-21] MEDS: traZODone 50 MG TAB PO SCH (20:25)
[2021-03-21] MEDS: PARoxetine 10MG TABLET PO SCH (20:26)
[2021-03-21] MEDS: RAMELTEON 8 MG TAB (ROZEREM) PO SCH (20:26)
[2021-03-22] VITALS (7 sets, daily range): BP systolic 108–140; BP diastolic 64–72; O2SAT 90–91
[2021-03-22] MEDS: IPRATROPIUM 0.5MG/ALBUTEROL 2.5MG INH SOL UD 3ML (DUONEB) NEB SCH ×4 (02:19→19:40)
[2021-03-22] MEDS: MEROPENEM INJ 1 GM in IV 1 EA IV SCH ×3 (04:43→20:28)
[2021-03-22] MEDS: SLF 3 ML SYR IV SCH ×3 (06:10→20:28)
[2021-03-22] MEDS: VANCOMYCIN HCL 750 MG, VIAL MATE ADAPTER 1 EACH in NS 250 ML IV SCH ×3 (06:10→21:57)
[2021-03-22 06:23] LABS: HEMATOCRIT 36.6 % (36.0-47.0); HEMOGLOBIN 11.6 g/dl (12.0-15.5); MEAN CORPUSCULAR HEMOGLOBIN 32.5 pg (27.0-33.0); MEAN CORPUSCULAR HGB CONC 31.7 g/dl (32.0-36.5); MEAN CORPUSCULAR VOLUME 102.5 fl (80.0-96.0); PLATELET COUNT, AUTOMATED 512 10^3/uL (150-450); RED BLOOD COUNT 3.57 10^6/uL (4.00-5.40); WHITE BLOOD COUNT 22.1 10^3/uL (4.0-10.0)
[2021-03-22 06:44] LABS: BLOOD UREA NITROGEN 18 MG/DL (7-18); CALCIUM LEVEL 8.2 MG/DL (8.5-10.1); CARBON DIOXIDE LEVEL 25 MEQ/L (21-32); CHLORIDE LEVEL 108 MEQ/L (98-107); GLOMERULAR FILTRATION RATE > 60.0 (>51); GLUCOSE, FASTING 81 MG/DL (70-100); POTASSIUM SERUM 4.1 MEQ/L (3.5-5.1); SODIUM LEVEL 140 MEQ/L (136-145)
[2021-03-22] MEDS: ACETYLCYSTEINE 20% 4 ML VIAL (200MG/ML) INH SCH ×2 (07:23→19:40)
[2021-03-22] MEDS: guaiFENesin ER 600 MG TAB PO SCH ×2 (08:26→20:29)
[2021-03-22] MEDS: OMEPRAZOLE 20 MG CAP PO SCH ×2 (08:26→20:29)
[2021-03-22] MEDS: MIRALAX *UNIT DOSE* 17GM PACKET PO SCH (08:26)
[2021-03-22] MEDS: SENOKOT S TAB PO SCH ×2 (08:26→20:28)
[2021-03-22] MEDS: predniSONE 10 MG TAB PO SCH (08:26)
[2021-03-22] MEDS: SODIUM CHLORIDE NASAL 0.65% SPRAY BTL (OCEAN) SCH ×2 (08:27→20:29)
[2021-03-22] MEDS: ENOXAPARIN 40MG/0.4ML SYRINGE (J1650 PER 10MG) SC SCH (08:27)
--- NOTE | 2021-03-22 13:27 | IPNPDOC ---
Subjective Date Seen The patient was seen on 03/22/21. Subjective Chief Complaint/HPI Mrs. Campo is a 56 year old female who is here with multifocal Chlamydia pneumonia complicated by necrotizing pneumonia. Last night, she slept better with the trazodone. This morning, her oxygen requirements improved to 6L. She is feeling better today. Objective Physical Examination General Exam: Positive: Alert, Cooperative Eye Exam: Negative: Sclera icteric Neck Exam: Positive: Supple Chest Exam: Positive: Rhonchi Heart Exam: Positive: Rate Normal, Normal S1, Normal S2 Abdomen Exam: Positive: Normal bowel sounds Extremity Exam: Negative: Edema Neuro Exam: Positive: Normal Speech Psych Exam: Positive: Anxiety Assessment /Plan Assessment Mrs. Campo is a 56 year old female who is here with multifocal chlamydia pneumonia. She is requiring 8L of oxygen. Despite being on antibiotics and antifungals, her CT shows increasing infiltrate. Leukocytosis has not improved. Inflammatory markers elevated and Procalcitonin trending upwards. Pulmonary reconsulted, recommendations appreciated. Suspecting patient to have necrotizing pneumonia. Antibiotics were escalated. Patient may also have mucus plugging causing her oxygen requirements to go upwards. Continue with mucolytics and breathing treatments. Plan/VTE VTE Prophylaxis Ordered?: Yes Plan 1. Multifocal community acquired pneumonia -Chlamydia pneumoniae antibody positive -Sputum culture demonstrated yeast like organisms. Fluconazole for a total of 7 days. End on 03/16/21 -Pulmonary reconsulted. Recommendations appreciated -Antibiotics switched to Meropenem and Vancomycin day 3 -Continue acapella and IS -Repeat sputum culture on 03/17 grew normal nader 2. Acute hypoxic respiratory failure -Secondary to pneumonia -Requiring 6L of oxygen -Pulmonary reconsulted. Recommendations appreciated -Continue with prednisone -Continue with acapella and IS -Continue with nebulized bronchodilators and Mucomyst 3. Nodular pulmonary opacities -Will need to have repeat CT chest 4 weeks after discharge from hospital 4. Constipation -Continue with Senokot S and Miralax -Continue with PRN milk of mag and PRN bisacodyl suppository 5. Insomnia -Continue hydroxyzine -Continue Rozerem -Added on Trazodone 6. DVT ppx -Lovenox Disposition: Pending improvement in respiratory function. Oxygen requirements is 6L NC now. Of note, procalcitonin is trending downwards. Still elevated at 3.46, but trending downwards. VS, I&O, 24H, Fishbone Vital Signs/I&O Vital Signs Date Time Temp Pulse Resp B/P (MAP) Pulse Ox O2 Delivery O2 Flow Rate FiO2 03/22/21 10:00 99.2 98 20 114/70 (85) 89 High Flow Cannula 6.0 I&O- Last 24 Hours up to 6 AM 03/22/21 05:59 Intake Total 1585 ml Output Total 1850 ml Balance -265 ml Laboratory Data 24H LABS Laboratory Tests 2 03/22/21 05:43: Nucleated Red Blood Cells % (auto) 0.0, Anion Gap 7L, Glomerular Filtration Rate > 60.0, Calcium Level 8.2L, Procalcitonin 3.46 CBC/BMP Laboratory Tests 03/22/21 05:43 Microbiology Microbiology 03/17/21 Gram Stain - Final, Complete 03/17/21 Sputum Culture - Final, Complete LUIS QUESADA DO Mar 22, 2021 13:27
[2021-03-22] MEDS: RAMELTEON 8 MG TAB (ROZEREM) PO SCH (20:28)
[2021-03-22] MEDS: traZODone 50 MG TAB PO SCH (20:29)
[2021-03-22] MEDS: PARoxetine 10MG TABLET PO SCH (20:29)
[2021-03-23] MEDS: IPRATROPIUM 0.5MG/ALBUTEROL 2.5MG INH SOL UD 3ML (DUONEB) NEB SCH ×4 (01:27→19:24)
[2021-03-23 02:00] VITALS: BP 137/79
[2021-03-23] MEDS: MEROPENEM INJ 1 GM in IV 1 EA IV SCH ×3 (05:09→20:56)
[2021-03-23 06:00] VITALS: BP 123/66
[2021-03-23] MEDS: VANCOMYCIN HCL 750 MG, VIAL MATE ADAPTER 1 EACH in NS 250 ML IV SCH ×2 (06:06→14:50)
[2021-03-23] MEDS: SLF 3 ML SYR IV SCH ×3 (06:06→20:57)
[2021-03-23 06:32] LABS: HEMATOCRIT 36.2 % (36.0-47.0); HEMOGLOBIN 11.6 g/dl (12.0-15.5); MEAN CORPUSCULAR HEMOGLOBIN 32.7 pg (27.0-33.0); PLATELET COUNT, AUTOMATED 494 10^3/uL (150-450); RED BLOOD COUNT 3.55 10^6/uL (4.00-5.40); WHITE BLOOD COUNT 21.8 10^3/uL (4.0-10.0)
[2021-03-23 06:58] LABS: BLOOD UREA NITROGEN 21 MG/DL (7-18); CALCIUM LEVEL 8.6 MG/DL (8.5-10.1); CARBON DIOXIDE LEVEL 27 MEQ/L (21-32); CHLORIDE LEVEL 108 MEQ/L (98-107); GLOMERULAR FILTRATION RATE > 60.0 (>51); GLUCOSE, FASTING 74 MG/DL (70-100); POTASSIUM SERUM 4.5 MEQ/L (3.5-5.1); SODIUM LEVEL 141 MEQ/L (136-145)
[2021-03-23] MEDS: MIRALAX *UNIT DOSE* 17GM PACKET PO SCH (08:09)
[2021-03-23] MEDS: SODIUM CHLORIDE NASAL 0.65% SPRAY BTL (OCEAN) SCH ×2 (08:09→20:57)
[2021-03-23] MEDS: guaiFENesin ER 600 MG TAB PO SCH ×2 (08:09→20:56)
[2021-03-23] MEDS: ENOXAPARIN 40MG/0.4ML SYRINGE (J1650 PER 10MG) SC SCH (08:09)
[2021-03-23] MEDS: predniSONE 10 MG TAB PO SCH (08:09)
[2021-03-23] MEDS: SENOKOT S TAB PO SCH ×2 (08:09→20:56)
[2021-03-23] MEDS: OMEPRAZOLE 20 MG CAP PO SCH ×2 (08:09→20:56)
[2021-03-23] MEDS: ACETYLCYSTEINE 20% 4 ML VIAL (200MG/ML) INH SCH ×2 (08:24→19:24)
[2021-03-23 10:00] VITALS: BP 117/71
[2021-03-23 10:36] LABS: TOTAL 25(OH) VITAMIN D 30.1 NG/ML (30.0-100.0)
[2021-03-23 14:00] VITALS: BP 155/74
--- NOTE | 2021-03-23 17:57 | IPNPDOC ---
Subjective Date Seen The patient was seen on 03/23/21. Subjective Chief Complaint/HPI Mrs. Campo is a 56 year old female who is here with multifocal Chlamydia pneumonia complicated by necrotizing pneumonia. This morning, she is feeling better. Denies chest pain or worsening dyspnea. Oxygen requirement decreased to 5L today. Objective Physical Examination General Exam: Positive: Alert, Cooperative Eye Exam: Negative: Sclera icteric Neck Exam: Positive: Supple Chest Exam: Positive: Rhonchi Heart Exam: Positive: Rate Normal, Normal S1, Normal S2 Abdomen Exam: Positive: Normal bowel sounds Extremity Exam: Negative: Edema Neuro Exam: Positive: Normal Speech Psych Exam: Positive: Anxiety Assessment /Plan Assessment Mrs. Campo is a 56 year old female who is here with multifocal chlamydia pneumonia. She is requiring 8L of oxygen. Despite being on antibiotics and antif ungals, her CT shows increasing infiltrate. Leukocytosis has not improved. Inflammatory markers elevated and Procalcitonin trending upwards. Pulmonary reconsulted, recommendations appreciated. Suspecting patient to have necrotizing pneumonia. Antibiotics were escalated to vancomycin and meropenem. She has been doing better with these antibiotics. MRSA swab is negative. Discontinued vancomycin. Plan/VTE VTE Prophylaxis Ordered?: Yes Plan 1. Multifocal community acquired pneumonia complicated by necrotizing pneumonia -Chlamydia pneumoniae antibody positive -Sputum culture demonstrated yeast like organisms. Fluconazole for a total of 7 days. End on 03/16/21 -Pulmonary reconsulted when oxygen requirement worsened to 8L. At that time, she was found to have necrotizing pneumonia. -Antibiotics switched to Meropenem day 4 -Continue acapella and IS -Repeat sputum culture on 03/17 grew normal nader 2. Acute hypoxic respiratory failure -Secondary to pneumonia -Requiring 5L of oxygen -Continue with prednisone -Continue with acapella and IS -Continue with nebulized bronchodilators and Mucomyst 3. Nodular pulmonary opacities -Will need to have repeat CT chest 4 weeks after discharge from hospital 4. Constipation -Continue with Senokot S and Miralax -Continue with PRN milk of mag and PRN bisacodyl suppository 5. Insomnia -Continue hydroxyzine -Continue Rozerem -Added on Trazodone 6. DVT ppx -Lovenox Disposition: Pending improvement in respiratory function. Oxygen requirements is 5L NC now. VS, I&O, 24H, Fishbone Vital Signs/I&O Vital Signs Date Time Temp Pulse Resp B/P (MAP) Pulse Ox O2 Delivery O2 Flow Rate FiO2 03/23/21 14:00 97.3 93 16 155/74 (101) 93 High Flow Cannula 5.0 I&O- Last 24 Hours up to 6 AM 03/23/21 06:00 Intake Total 1880 ml Output Total 1900 ml Balance -20 ml Laboratory Data 24H LABS Laboratory Tests 2 03/23/21 06:19: Nucleated Red Blood Cells % (auto) 0.0 03/23/21 06:20: Anion Gap 6L, Glomerular Filtration Rate > 60.0, Calcium Level 8.6 03/23/21 13:11: Vancomycin Level Trough 13.2 CBC/BMP Laboratory Tests 03/23/21 06:19 03/23/21 06:20 Microbiology Microbiology 03/17/21 Gram Stain - Final, Complete 03/17/21 Sputum Culture - Final, Complete LUIS QUESADA DO Mar 23, 2021 17:57
[2021-03-23 18:00] VITALS: BP 126/65
[2021-03-23] MEDS: traZODone 50 MG TAB PO SCH (20:56)
[2021-03-23] MEDS: PARoxetine 10MG TABLET PO SCH (20:56)
[2021-03-23] MEDS: RAMELTEON 8 MG TAB (ROZEREM) PO SCH (20:56)
[2021-03-23 22:00] VITALS: BP 123/59
[2021-03-24] MEDS: IPRATROPIUM 0.5MG/ALBUTEROL 2.5MG INH SOL UD 3ML (DUONEB) NEB SCH ×4 (01:13→19:37)
[2021-03-24 02:00] VITALS: BP 126/76
[2021-03-24] MEDS: MEROPENEM INJ 1 GM in IV 1 EA IV SCH ×3 (05:02→21:41)
[2021-03-24] MEDS: SLF 3 ML SYR IV SCH ×3 (05:03→22:00)
[2021-03-24 06:00] VITALS: BP 120/62
[2021-03-24 06:39] LABS: HEMATOCRIT 36.4 % (36.0-47.0); HEMOGLOBIN 11.6 g/dl (12.0-15.5); MEAN CORPUSCULAR HEMOGLOBIN 32.9 pg (27.0-33.0); MEAN CORPUSCULAR HGB CONC 31.9 g/dl (32.0-36.5); MEAN CORPUSCULAR VOLUME 103.1 fl (80.0-96.0); PLATELET COUNT, AUTOMATED 498 10^3/uL (150-450); RED BLOOD COUNT 3.53 10^6/uL (4.00-5.40); WHITE BLOOD COUNT 20.9 10^3/uL (4.0-10.0)
[2021-03-24 07:10] LABS: BLOOD UREA NITROGEN 24 MG/DL (7-18); CALCIUM LEVEL 8.6 MG/DL (8.5-10.1); CARBON DIOXIDE LEVEL 27 MEQ/L (21-32); CHLORIDE LEVEL 107 MEQ/L (98-107); CREATININE FOR GFR 0.62 MG/DL (0.55-1.30); GLOMERULAR FILTRATION RATE > 60.0 (>51); GLUCOSE, FASTING 83 MG/DL (70-100); POTASSIUM SERUM 4.4 MEQ/L (3.5-5.1); SODIUM LEVEL 140 MEQ/L (136-145)
[2021-03-24] MEDS: ACETYLCYSTEINE 20% 4 ML VIAL (200MG/ML) INH SCH ×2 (07:11→20:00)
[2021-03-24] MEDS: SENOKOT S TAB PO SCH ×2 (08:28→21:42)
[2021-03-24] MEDS: MIRALAX *UNIT DOSE* 17GM PACKET PO SCH (08:28)
[2021-03-24] MEDS: guaiFENesin ER 600 MG TAB PO SCH ×2 (08:29→21:42)
[2021-03-24] MEDS: OMEPRAZOLE 20 MG CAP PO SCH ×2 (08:29→21:42)
[2021-03-24] MEDS: ENOXAPARIN 40MG/0.4ML SYRINGE (J1650 PER 10MG) SC SCH (08:29)
[2021-03-24] MEDS: predniSONE 10 MG TAB PO SCH (08:29)
[2021-03-24] MEDS: SODIUM CHLORIDE NASAL 0.65% SPRAY BTL (OCEAN) SCH ×2 (08:30→21:42)
[2021-03-24 10:00] VITALS: BP 114/74
--- NOTE | 2021-03-24 11:44 | IPNPDOC ---
Text Note Date of Service The patient was seen on 03/24/21. NOTE Subjective Pt was seen at bedside today and is overall feeling well. She c/o no SOB while on oxygen, and admits her cough has mostly subsided. Pt admits to rib pain along the lower sternum with deep breathing and c/o mild abdominal bloating. Pt had 2 normal bowel movements yesterday. Denies GARRISON, N, V, chest pain, abdominal pain, or dysuria. Objective Gen: Pt is talkative and in no distress, but mildly anxious. Psych: A+Ox3. HEENT: no cervical lymphadenopathy, RESP: Mildly diminish breath sounds in bases b/l, otherwise CTA. CVS: RRR, no murmur, gallop, or rub. ABD: Soft, mildly distended, non-tender, normoactive bowel sounds. MSK: Plantarflexion strength 5/5 b/l. Skin: No rash, no edema. Imaging CT ANGIO CHEST (03/17) Reported as- No CT evidence of pulmonary embolism. Extensive dense consolidation right lower and middle lobes with some increased compared to the study 5 days ago. There also some increased areas of patchy interstitial and ground-glass infiltrates right upper lobe and in the right left lower lung zone.. Same or slightly smaller right effusion, no left effusion. CT Chest without contrast (03/12) Reported as- 1. Significant improvement in the left base from dense consolidation, now with patchy infiltrates remaining there and scattered. 2. There is also improvement in the right base with less dense confluent opacities but still some remaining in the more inferior 1/3 of the lung field involving both the middle and lower lobes. Patchy infiltrates in the superior segment of the lower lobe and adjacent middle lobe. The effusion is largely resolved. No other interval change. Assessment Pt is 56yo F w PMHx anxiety, depression, and dyslipidemia who was referred for admission on 02/24 from [facility] for evaluation of community acquired pneumonia with SOB and productive cough. Pt is sating well on 3L O2 and on day 7 of Meropenem to cover serology evidenced Chlamydia pneumoniae. She will remain admitted to evaluate need for O2 and clinical improvement. Plan 1. Multifocal Community Acquired Pneumonia complicated by Necrotizing pneumonia Leukocytosis remains- WBC at 20.9 today. This is day 7 of Meropenem to cover Chlamydia pneumoniae. We will continue prednisone and albuterol/ipratropium nebulizer treatment for sx improvement. Pt has been encouraged to use acapella and IS for improved respiratory function. 2. Cough 2/2 Pneumonia We are giving Mucinex, Mucomyst, and saline nasal spray for symptom relief. 3. Constipation We are giving Senna/Docusate BID and Miralax daily for sx relief. We will continue Bisacodyl and milk of magnesia PRN. 4. Nodular Pulmonary Opacities Pt should follow up w pulmonology or PCP in 4-6 weeks after antibiotic course end, consider repeat CT at that point. 5. Anxiety/Depression We are giving home dose of daily paroxetine. We will continue with Hydroxyzine PRN. 6. Insomnia We will continue w trazodone. 7. GERD We will continue w omeprazole daily. 8. DVT Prophylaxis We will continue Lovenox. Disposition We will continue to monitor pt for clinical improvement, determine end date for antibiotic course based on this, and evaluate necessity and level of continued O2 use, prior to discharge. GME ATTESTATION My faculty preceptor for this patient encounter was physically present during the encounter and was fully available. All aspects of the patient interview, examination, medical decision making process, and medical care plan development were reviewed and approved by the faculty preceptor. The faculty preceptor is aware and concurs with the plan as stated in the body of this note and will attest to such by his co-signature. REFER TO ATTENDING NOTE VS,Fishbone, I+O VS, Fishbone, I+O Laboratory Tests 03/24/21 06:11 Vital Signs Date Time Temp Pulse Resp B/P (MAP) Pulse Ox O2 Delivery O2 Flow Rate FiO2 03/24/21 10:00 98.8 93 19 114/74 (87) 88 High Flow Cannula 4.0 I&O- Last 24 Hours up to 6 AM 03/24/21 06:00 Intake Total 1760 ml Output Total 2800 ml Balance -1040 ml DEDE PRICE S-3 Mar 24, 2021 11:44 DORA YIN M.D. Mar 29, 2021 18:45
[2021-03-24 14:00] VITALS: BP 109/77
[2021-03-24 18:09] VITALS: BP 112/77
--- NOTE | 2021-03-24 20:18 | IPNPDOC ---
Subjective Date Seen The patient was seen on 03/24/21. Subjective Chief Complaint/HPI Patient was seen and examined at bedside this morning. She is currently being treated for necrotizing pneumonia. This morning, she reported feeling better. She denies chest pain, worsening shortness of breath, abdominal pain, nausea, vomiting, problems with urination or bowel movements. She is now on 4 L nasal cannula Other systems 10 point review of system was negative except for what is noted in the HPI. Objective Physical Examination General Exam: Positive: Alert, Cooperative; Negative: No Acute Distress Eye Exam: Positive: PERRLA, Conjunctiva & lids normal; Negative: Sclera icteric ENT Exam: Positive: Atraumatic, Mucous membr. moist/pink, Pharynx Normal Neck Exam: Positive: Supple; Negative: JVD, thyromegaly Chest Exam: Positive: Rhonchi (Bilaterally), Other (On 4 L nasal cannula) Heart Exam: Positive: Rate Normal, Normal S1, Normal S2; Negative: Tachycardic Abdomen Exam: Positive: Normal bowel sounds, Soft; Negative: Tenderness, Hepatospenomegaly Extremity Exam: Negative: Edema Neuro Exam: Positive: Normal Speech Psych Exam: Positive: Anxiety Assessment /Plan Assessment #Necrotizing pneumonia -Chlamydia pneumonia. Continue with meropenem, day 7. Received 6 days of Vancomycin as co-infection w/ MRSA was a concern. She also received a course of fluconazole for a total of 7 days. -Supportive measures with acapella, and incentive spirometer. -Pulmonary team following. #Acute hypoxic respiratory failure with hypoxemia -Secondary to necrotizing pneumonia. Continue with plan as above. Attempt to wean off oxygen. -Supportive care with nebulized bronchodilators and Mucomyst. Begin to taper prednisone #Nodular pulmonary opacities -She will need a repeat ct-scan to ensure resolution in 4-[address]-scan. #Constipation -Continue with bowel regimen. #Insomnia/Anxious -Continue hydroxyzin, Rozerem, trazodone was added. #DVT ppx -Lovenox Plan/VTE VTE Prophylaxis Ordered?: Yes VS, I&O, 24H, Fishbone Vital Signs/I&O Vital Signs Date Time Temp Pulse Resp B/P (MAP) Pulse Ox O2 Delivery O2 Flow Rate FiO2 03/24/21 18:24 2.0 03/24/21 18:09 99.1 132 18 112/77 (89) 88 Nasal Cannula I&O- Last 24 Hours up to 6 AM 03/24/21 06:00 Intake Total 1760 ml Output Total 2800 ml Balance -1040 ml Laboratory Data 24H LABS Laboratory Tests 2 03/24/21 06:11: Nucleated Red Blood Cells % (auto) 0.0, Anion Gap 6L, Glomerular Filtration Rate > 60.0, Calcium Level 8.6 CBC/BMP Laboratory Tests 03/24/21 06:11 Microbiology Microbiology 03/17/21 Gram Stain - Final, Complete 03/17/21 Sputum Culture - Final, Complete DORA YIN M.D. Mar 24, 2021 19:20
[2021-03-24] MEDS: hydrOXYzine 25 MG TAB PO PRN (21:42)
[2021-03-24] MEDS: PARoxetine 10MG TABLET PO SCH (21:42)
[2021-03-24] MEDS: traZODone 50 MG TAB PO SCH (21:42)
[2021-03-24] MEDS: RAMELTEON 8 MG TAB (ROZEREM) PO SCH (21:42)
[2021-03-24 22:00] VITALS: BP 123/66
[2021-03-25] MEDS: IPRATROPIUM 0.5MG/ALBUTEROL 2.5MG INH SOL UD 3ML (DUONEB) NEB SCH ×3 (02:26→13:25)
[2021-03-25] MEDS: MEROPENEM INJ 1 GM in IV 1 EA IV SCH ×3 (04:16→22:08)
[2021-03-25] MEDS: SLF 3 ML SYR IV SCH ×3 (04:17→22:10)
[2021-03-25] MEDS: IPRATROPIUM 0.5MG/ALBUTEROL 2.5MG INH SOL UD 3ML (DUONEB) NEB PRN (04:53)
[2021-03-25 06:53] LABS: HEMATOCRIT 37.8 % (36.0-47.0); HEMOGLOBIN 12.2 g/dl (12.0-15.5); MEAN CORPUSCULAR HEMOGLOBIN 33.1 pg (27.0-33.0); MEAN CORPUSCULAR HGB CONC 32.3 g/dl (32.0-36.5); MEAN CORPUSCULAR VOLUME 102.4 fl (80.0-96.0); PLATELET COUNT, AUTOMATED 515 10^3/uL (150-450); RED BLOOD COUNT 3.69 10^6/uL (4.00-5.40); WHITE BLOOD COUNT 20.3 10^3/uL (4.0-10.0)
[2021-03-25 07:05] LABS: BLOOD UREA NITROGEN 23 MG/DL (7-18); CALCIUM LEVEL 8.8 MG/DL (8.5-10.1); CARBON DIOXIDE LEVEL 27 MEQ/L (21-32); CHLORIDE LEVEL 107 MEQ/L (98-107); CREATININE FOR GFR 0.62 MG/DL (0.55-1.30); GLOMERULAR FILTRATION RATE > 60.0 (>51); GLUCOSE, FASTING 83 MG/DL (70-100); MAGNESIUM LEVEL 2.5 MG/DL (1.8-2.4); PHOSPHORUS LEVEL 4.2 MG/DL (2.5-4.9); POTASSIUM SERUM 4.5 MEQ/L (3.5-5.1); SODIUM LEVEL 141 MEQ/L (136-145)
[2021-03-25] MEDS: ACETYLCYSTEINE 20% 4 ML VIAL (200MG/ML) INH SCH ×2 (07:43→20:00)
[2021-03-25] MEDS: SENOKOT S TAB PO SCH ×2 (08:50→22:09)
[2021-03-25] MEDS: predniSONE 10 MG TAB PO SCH (08:51)
[2021-03-25] MEDS: guaiFENesin ER 600 MG TAB PO SCH ×2 (08:51→22:09)
[2021-03-25] MEDS: ENOXAPARIN 40MG/0.4ML SYRINGE (J1650 PER 10MG) SC SCH (08:51)
[2021-03-25] MEDS: MIRALAX *UNIT DOSE* 17GM PACKET PO SCH (08:51)
[2021-03-25] MEDS: OMEPRAZOLE 20 MG CAP PO SCH ×2 (08:51→22:08)
[2021-03-25] MEDS: SODIUM CHLORIDE NASAL 0.65% SPRAY BTL (OCEAN) SCH ×2 (08:52→22:10)
[2021-03-25 10:00] VITALS: BP 109/63
[2021-03-25 14:00] VITALS: BP 122/67
[2021-03-25] MEDS ORDERED: ISOVUE-370 76% 100ML VIAL As Ordered ONE (15:41)
--- NOTE | 2021-03-25 16:44 | REP ---
INDICATION: r/o pe COMPARISON: 03/17/2021 the latest prior also CT angiography attention pulmonary arteries TECHNIQUE: CT angiography of the chest attention pulmonary arteries after the intravenous administration of 75 cc Isovue 370 FINDINGS: There is excellent visualization of the pulmonary arterial vasculature. No focal filling defects are present that would be considered consistent with acute pulmonary emboli. There is right hilar adenopathy and subcarinal adenopathy status quo. There are no pleural or pericardial effusions. There is no change in the imaged upper abdomen. Left renal cysts status quo. Evaluation of the lung torres again shows extensive dense opacification of the right middle and lower lobes with air bronchograms status quo. More patchy appearing airspace opacities are seen in the remainder of the lung torres status quo. There is no change in the osseous structures. IMPRESSION: 1. There is no evidence of a pulmonary embolism. 2. Extensive bilateral but predominantly right-sided pneumonia as described above and essentially unchanged in appearance from 03/17/2021 <Electronically signed by Danny Knight > 03/25/21 1640
[2021-03-25 18:00] VITALS: BP 118/71
--- NOTE | 2021-03-25 18:13 | IPNPDOC ---
Subjective Date Seen The patient was seen on 03/25/21. Subjective Chief Complaint/HPI Patient was seen and examined at bedside this morning. She is quite anxious but she was told that she might have to go home on oxygen and kept looking up at her monitor to see where her oxygen saturation was at. She reports desaturation with slight movement. Overnight, patient needed to be up titrated on her oxygen to 4 L per Other systems 10 point review of system was negative except for what is noted in the HPI. Objective Physical Examination Other physical findings General: Lying in bed, no acute distress Head/Neck/Throat: Trachea midline, mucous membranes moist Eyes: Sclera anicteric, no erythema or discharge appreciated bilaterally Thorax: On 4 L nasal cannula, coarse breath sounds bilaterally Cardiovascular: Tachycardiac to 120, regular rhythm, normal S1, S2; no S3, S4, rubs/gallops/murmurs Abdomen: Bowel sounds present, soft/nontender/nondistended Genitourinary: No CVA tenderness, no Kaplan in place Musculoskeletal: Moving all extremities, no edema Skin: Warm, dry Neurologic: AAOx3, speech fluent and goal-directed, no focal deficits, grossly intact Assessment /Plan Plan/VTE VTE Prophylaxis Ordered?: Yes Plan #Sinus tachycardia -With decreasing oxygen requirements and tachycardia CT angiogram was done to rule out PE, which was negative -An EKG as well as troponins has also been ordered to rule out ACS #Necrotizing pneumonia -Chlamydia pneumonia. Continue with meropenem, day 7. Received 6 days of Vancomycin as co-infection w/ MRSA was a concern. She also received a course of fluconazole for a total of 7 days. -Supportive measures with acapella, and incentive spirometer. -Pulmonary team following. #Acute hypoxic respiratory failure with hypoxemia -Secondary to necrotizing pneumonia. Continue with plan as above. Attempt to wean off oxygen. -Supportive care with nebulized bronchodilators and Mucomyst. Begin to taper prednisone on 03/26 #Nodular pulmonary opacities -She will need a repeat ct-scan to ensure resolution in 4-[address]-scan. #Constipation -Continue with bowel regimen. #Insomnia/Anxious -Continue hydroxyzin, Rozerem, trazodone was added. #DVT ppx -Lovenox VS, I&O, 24H, Fishbone Vital Signs/I&O Vital Signs Date Time Temp Pulse Resp B/P (MAP) Pulse Ox O2 Delivery O2 Flow Rate FiO2 03/25/21 14:00 98.3 133 18 122/67 (85) 87 High Flow Cannula 4.0 I&O- Last 24 Hours up to 6 AM 03/25/21 06:00 Intake Total 1340 ml Output Total 2600 ml Balance -1260 ml Laboratory Data 24H LABS Laboratory Tests 2 03/25/21 06:08: Nucleated Red Blood Cells % (auto) 0.0, Anion Gap 7L, Glomerular Filtration Rate > 60.0, Calcium Level 8.8, Phosphorus Level 4.2, Magnesium Level 2.5H 03/25/21 17:21: CBC/BMP Laboratory Tests 03/25/21 06:08 Microbiology Microbiology 03/17/21 Gram Stain - Final, Complete 03/17/21 Sputum Culture - Final, Complete DORA YIN M.D. Mar 25, 2021 18:11
[2021-03-25 18:17] LABS: TROPONIN I < 0.02 NG/ML (< 0.10)
[2021-03-25 18:45] LABS: FOLATE 11.2 NG/ML
[2021-03-25] MEDS ORDERED: LORazepam 0.5 MG TAB PO ONE (19:35)
[2021-03-25] MEDS: IPRATROPIUM HFA INHALER 12.9 GRAMS (ATROVENT HFA) INH SCH (20:35)
[2021-03-25] MEDS: LEVALBUTEROL HFA 45MCG/ACT 15 GM INHALER INH SCH (20:36)
[2021-03-25 20:43] LABS: VITAMIN B12 LEVEL 781 PG/ML
[2021-03-25 22:00] VITALS: BP 112/79
[2021-03-25] MEDS: PARoxetine 10MG TABLET PO SCH (22:08)
[2021-03-25] MEDS: RAMELTEON 8 MG TAB (ROZEREM) PO SCH (22:09)
[2021-03-25] MEDS: traZODone 50 MG TAB PO SCH (22:09)
[2021-03-26] MEDS: IPRATROPIUM HFA INHALER 12.9 GRAMS (ATROVENT HFA) INH SCH ×4 (01:04→19:35)
[2021-03-26] MEDS: LEVALBUTEROL HFA 45MCG/ACT 15 GM INHALER INH SCH ×4 (01:06→19:35)
[2021-03-26 02:00] VITALS: BP 123/71
[2021-03-26] MEDS: SLF 3 ML SYR IV SCH ×3 (05:43→21:26)
[2021-03-26] MEDS: MEROPENEM INJ 1 GM in IV 1 EA IV SCH ×3 (05:43→21:24)
[2021-03-26 06:00] VITALS: BP 119/71
--- NOTE | 2021-03-26 06:13 | ECGEPIP ---
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
[2021-03-26 07:07] LABS: HEMATOCRIT 39.7 % (36.0-47.0); HEMOGLOBIN 12.7 g/dl (12.0-15.5); MEAN CORPUSCULAR HEMOGLOBIN 32.6 pg (27.0-33.0); MEAN CORPUSCULAR VOLUME 102.1 fl (80.0-96.0); PLATELET COUNT, AUTOMATED 519 10^3/uL (150-450); RED BLOOD COUNT 3.89 10^6/uL (4.00-5.40); WHITE BLOOD COUNT 21.9 10^3/uL (4.0-10.0)
[2021-03-26 07:37] LABS: BLOOD UREA NITROGEN 26 MG/DL (7-18); CALCIUM LEVEL 8.7 MG/DL (8.5-10.1); CARBON DIOXIDE LEVEL 27 MEQ/L (21-32); CHLORIDE LEVEL 106 MEQ/L (98-107); CREATININE FOR GFR 0.59 MG/DL (0.55-1.30); GLOMERULAR FILTRATION RATE > 60.0 (>51); GLUCOSE, FASTING 79 MG/DL (70-100); MAGNESIUM LEVEL 2.6 MG/DL (1.8-2.4); PHOSPHORUS LEVEL 4.3 MG/DL (2.5-4.9); POTASSIUM SERUM 4.5 MEQ/L (3.5-5.1); SODIUM LEVEL 140 MEQ/L (136-145)
[2021-03-26] MEDS: ACETYLCYSTEINE 20% 4 ML VIAL (200MG/ML) INH SCH ×2 (07:50→19:34)
[2021-03-26 10:00] VITALS: BP 111/74
[2021-03-26] MEDS: OMEPRAZOLE 20 MG CAP PO SCH ×2 (10:02→21:25)
[2021-03-26] MEDS: SENOKOT S TAB PO SCH ×2 (10:02→21:25)
[2021-03-26] MEDS: predniSONE 10 MG TAB PO SCH (10:02)
[2021-03-26] MEDS: ENOXAPARIN 40MG/0.4ML SYRINGE (J1650 PER 10MG) SC SCH (10:03)
[2021-03-26] MEDS: MIRALAX *UNIT DOSE* 17GM PACKET PO SCH (10:03)
[2021-03-26] MEDS: guaiFENesin ER 600 MG TAB PO SCH ×2 (10:03→21:25)
[2021-03-26] MEDS: SODIUM CHLORIDE NASAL 0.65% SPRAY BTL (OCEAN) SCH ×2 (10:04→21:26)
[2021-03-26 14:00] VITALS: BP 112/77
--- NOTE | 2021-03-26 14:33 | IPNPDOC ---
Subjective Date Seen The patient was seen on 03/26/21. Subjective Chief Complaint/HPI Patient was seen and examined at bedside this morning. She reports feeling better this morning, however had a rough night requiring her to be placed on a nonrebreather; she is not aware if the nasal cannula had fell out. Presently, she denies headaches, chest pain, abdominal pain, nausea, vomiting, problems with urination or bowel movements Other systems 10 point review of system negative except for what is noted in the HPI. Objective Physical Examination Other physical findings General: Lying in bed, no acute distress Head/Neck/Throat: Trachea midline, mucous membranes moist Eyes: Sclera anicteric, no erythema or discharge appreciated bilaterally Thorax: On 4 L nasal cannula, coarse breath sounds bilaterally Cardiovascular: Tachycardiac to 104, regular rhythm, normal S1, S2; no S3, S4, rubs/gallops/murmurs Abdomen: Bowel sounds present, soft/nontender/nondistended Genitourinary: No CVA tenderness, no Kaplan in place Musculoskeletal: Moving all extremities, no edema Skin: Warm, dry Neurologic: AAOx3, speech fluent and goal-directed, no focal deficits, grossly intact Assessment /Plan Plan/VTE VTE Prophylaxis Ordered?: Yes Plan #Necrotizing pneumonia -Chlamydia pneumonia. Continue with meropenem, day 7. Received 6 days of V ancomycin as co-infection w/ MRSA was a concern. She also received a course of fluconazole for a total of 7 days. -Supportive measures with acapella, and incentive spirometer. -Pulmonary team following. #Acute hypoxic respiratory failure with hypoxemia -Secondary to necrotizing pneumonia. Continue with plan as above. Attempt to wean off oxygen. -Supportive care with nebulized bronchodilators and Mucomyst. Begin to taper prednisone on 03/26 #Sinus tachycardia -Suspect she has underlying anxiety, and also 2/2 to her respiratory status. CT angiogram was done to rule out PE, which was negative -An EKG as well as troponin was negative x 2. #Nodular pulmonary opacities -She will need a repeat ct-scan to ensure resolution in 4-[address]-scan. #Constipation -Continue with bowel regimen. #Insomnia/Anxious -Continue hydroxyzin, Rozerem, trazodone was added. #DVT ppx -Lovenox VS, I&O, 24H, Fishbone Vital Signs/I&O Vital Signs Date Time Temp Pulse Resp B/P (MAP) Pulse Ox O2 Delivery O2 Flow Rate FiO2 03/26/21 06:00 97.6 92 18 119/71 (87) 94 Non-Rebreather 15.0 I&O- Last 24 Hours up to 6 AM 03/26/21 06:00 Intake Total 1730 ml Output Total 1475 ml Balance 255 ml Laboratory Data 24H LABS Laboratory Tests 2 03/25/21 17:21: Troponin I < 0.02, Vitamin B12 Level 781, Folate 11.2 03/25/21 19:46: Troponin I < 0.02 Microbiology Microbiology 03/17/21 Gram Stain - Final, Complete 03/17/21 Sputum Culture - Final, Complete DORA YIN M.D. Mar 26, 2021 06:24
[2021-03-26 18:00] VITALS: BP 111/66
[2021-03-26] MEDS: RAMELTEON 8 MG TAB (ROZEREM) PO SCH (21:25)
[2021-03-26] MEDS: PARoxetine 10MG TABLET PO SCH (21:25)
[2021-03-26] MEDS: traZODone 50 MG TAB PO SCH (21:25)
[2021-03-26 22:00] VITALS: BP 110/64
[2021-03-27] VITALS (7 sets, daily range): BP systolic 118–137; BP diastolic 70–82; O2SAT 88
[2021-03-27] MEDS: IPRATROPIUM HFA INHALER 12.9 GRAMS (ATROVENT HFA) INH SCH ×4 (00:58→19:43)
[2021-03-27] MEDS: LEVALBUTEROL HFA 45MCG/ACT 15 GM INHALER INH SCH ×4 (00:59→19:43)
[2021-03-27] MEDS: MEROPENEM INJ 1 GM in IV 1 EA IV SCH (05:00)
[2021-03-27] MEDS: SLF 3 ML SYR IV SCH ×3 (05:01→22:12)
[2021-03-27 07:26] LABS: ALT/SGPT 38 U/L (12-78); BILIRUBIN,TOTAL 0.2 MG/DL (0.2-1.0); BLOOD UREA NITROGEN 29 MG/DL (7-18); CALCIUM LEVEL 8.6 MG/DL (8.5-10.1); CARBON DIOXIDE LEVEL 26 MEQ/L (21-32); CHLORIDE LEVEL 107 MEQ/L (98-107); CREATININE FOR GFR 0.53 MG/DL (0.55-1.30); GLOMERULAR FILTRATION RATE > 60.0 (>51); GLUCOSE, FASTING 83 MG/DL (70-100); MAGNESIUM LEVEL 2.5 MG/DL (1.8-2.4); PHOSPHORUS LEVEL 3.7 MG/DL (2.5-4.9); POTASSIUM SERUM 4.1 MEQ/L (3.5-5.1); SODIUM LEVEL 140 MEQ/L (136-145)
[2021-03-27] MEDS: ACETYLCYSTEINE 20% 4 ML VIAL (200MG/ML) INH SCH ×2 (07:27→19:43)
[2021-03-27] MEDS: OMEPRAZOLE 20 MG CAP PO SCH ×2 (09:36→22:11)
[2021-03-27] MEDS: MIRALAX *UNIT DOSE* 17GM PACKET PO SCH (09:36)
[2021-03-27] MEDS: SENOKOT S TAB PO SCH ×2 (09:36→22:11)
[2021-03-27] MEDS: predniSONE 10 MG TAB PO SCH (09:36)
[2021-03-27] MEDS: guaiFENesin ER 600 MG TAB PO SCH ×2 (09:36→22:11)
[2021-03-27] MEDS: SODIUM CHLORIDE NASAL 0.65% SPRAY BTL (OCEAN) SCH ×2 (09:37→22:13)
[2021-03-27] MEDS: ENOXAPARIN 40MG/0.4ML SYRINGE (J1650 PER 10MG) SC SCH (09:37)
--- NOTE | 2021-03-27 20:14 | IPNPDOC ---
Subjective Date Seen The patient was seen on 03/27/21. Subjective Chief Complaint/HPI Patient seen and examined at bedside this morning. She was agitated that her oxygen requirements were fluctuating and overall not decreasing. Due to this, she reported having some difficulty in breathing. However, following a lengthy discussion she appeared to be breathing comfortably on 5 L nasal cannula. She did not want any sedating medications at night including trazodone and Rozerem. She believes this makes her too sedated for her to get up and cough Objective Physical Examination Other physical findings General: Lying in bed, no acute distress Head/Neck/Throat: Trachea midline, mucous membranes moist Eyes: Sclera anicteric, no erythema or discharge appreciated bilaterally Thorax: On 5 L nasal cannula, coarse breath sounds bilaterally Cardiovascular: Tachycardiac to 120, regular rhythm, normal S1, S2; no S3, S4, rubs/gallops/murmurs Abdomen: Bowel sounds present, soft/nontender/nondistended Genitourinary: No CVA tenderness, no Kaplan in place Musculoskeletal: Moving all extremities, no edema Skin: Warm, dry Neurologic: AAOx3, speech fluent and goal-directed, no focal deficits, grossly intact Assessment /Plan Plan/VTE VTE Prophylaxis Ordered?: Yes Plan #Sinus tachycardia CT angiogram was done to rule out PE, which was negative. An EKG as well as troponins has also been ordered to rule out ACS. Likely secondary to underlying respiratory status and anxiety. #Necrotizing pneumonia -Chlamydia pneumonia. Stopped due to meropenem today. Received 6 days of Vancomycin as co-infection w/ MRSA was a concern. She also received a course of fluconazole for a total of 7 days. We will follow off antibiotics at this time. -Supportive measures with acapella, and incentive spirometer. -Pulmonary team following. #Acute hypoxic respiratory failure with hypoxemia -Secondary to necrotizing pneumonia. Continue with plan as above. Attempt to wean off oxygen. -Supportive care with nebulized bronchodilators and Mucomyst. -Due to respiratory status prednisone was not tapered. #Nodular pulmonary opacities -She will need a repeat ct-scan to ensure resolution in 4-6 weeks #Constipation -Continue with bowel regimen. #Insomnia/Anxious -We will leave hydroxyzine. Discontinued trazodone and Rozerem. #DVT ppx -Lovenox VS, I&O, 24H, Fishbone Vital Signs/I&O Vital Signs Date Time Temp Pulse Resp B/P (MAP) Pulse Ox O2 Delivery O2 Flow Rate FiO2 03/27/21 02:00 98.6 86 22 137/82 (100) 88 High Flow Cannula 10.0 I&O- Last 24 Hours up to 6 AM 03/27/21 06:00 Intake Total 730 ml Output Total 1100 ml Balance -370 ml Laboratory Data 24H LABS Laboratory Tests 2 03/26/21 06:28: Nucleated Red Blood Cells % (auto) 0.0, Anion Gap 7L, Glomerular Filtration Rate > 60.0, Calcium Level 8.7, Phosphorus Level 4.3, Magnesium Level 2.6H CBC/BMP Laboratory Tests 03/26/21 06:28 Microbiology Microbiology 03/17/21 Gram Stain - Final, Complete 03/17/21 Sputum Culture - Final, Complete DORA YIN M.D. Mar 27, 2021 06:20
[2021-03-27] MEDS: PARoxetine 10MG TABLET PO SCH (22:12)
[2021-03-28] VITALS (8 sets, daily range): BP systolic 105–120; BP diastolic 58–72; O2SAT 89–90
[2021-03-28] MEDS: LEVALBUTEROL HFA 45MCG/ACT 15 GM INHALER INH SCH ×4 (02:18→20:11)
[2021-03-28] MEDS: IPRATROPIUM HFA INHALER 12.9 GRAMS (ATROVENT HFA) INH SCH ×4 (02:18→20:11)
[2021-03-28] MEDS: SLF 3 ML SYR IV SCH ×3 (06:00→21:52)
[2021-03-28 06:36] LABS: HEMATOCRIT 38.2 % (36.0-47.0); HEMOGLOBIN 12.4 g/dl (12.0-15.5); MEAN CORPUSCULAR HEMOGLOBIN 33.1 pg (27.0-33.0); MEAN CORPUSCULAR HGB CONC 32.5 g/dl (32.0-36.5); MEAN CORPUSCULAR VOLUME 101.9 fl (80.0-96.0); PLATELET COUNT, AUTOMATED 440 10^3/uL (150-450); RED BLOOD COUNT 3.75 10^6/uL (4.00-5.40); WHITE BLOOD COUNT 21.3 10^3/uL (4.0-10.0)
[2021-03-28 06:56] LABS: BLOOD UREA NITROGEN 27 MG/DL (7-18); CALCIUM LEVEL 8.1 MG/DL (8.5-10.1); CARBON DIOXIDE LEVEL 28 MEQ/L (21-32); CHLORIDE LEVEL 107 MEQ/L (98-107); CREATININE FOR GFR 0.57 MG/DL (0.55-1.30); GLOMERULAR FILTRATION RATE > 60.0 (>51); GLUCOSE, FASTING 84 MG/DL (70-100); MAGNESIUM LEVEL 2.4 MG/DL (1.8-2.4); PHOSPHORUS LEVEL 3.5 MG/DL (2.5-4.9); POTASSIUM SERUM 4.1 MEQ/L (3.5-5.1); SODIUM LEVEL 139 MEQ/L (136-145)
[2021-03-28] MEDS: ACETYLCYSTEINE 20% 4 ML VIAL (200MG/ML) INH SCH ×2 (07:47→20:10)
[2021-03-28] MEDS: MIRALAX *UNIT DOSE* 17GM PACKET PO SCH (08:40)
[2021-03-28] MEDS: guaiFENesin ER 600 MG TAB PO SCH ×2 (08:41→21:52)
[2021-03-28] MEDS: ENOXAPARIN 40MG/0.4ML SYRINGE (J1650 PER 10MG) SC SCH (08:41)
[2021-03-28] MEDS: predniSONE 10 MG TAB PO SCH (08:41)
[2021-03-28] MEDS: SENOKOT S TAB PO SCH ×2 (08:41→21:52)
[2021-03-28] MEDS: OMEPRAZOLE 20 MG CAP PO SCH ×2 (08:41→21:52)
[2021-03-28] MEDS: SODIUM CHLORIDE NASAL 0.65% SPRAY BTL (OCEAN) SCH ×2 (08:42→21:52)
--- NOTE | 2021-03-28 15:58 | IPNPDOC ---
Subjective Date Seen The patient was seen on 03/28/21. Subjective Chief Complaint/HPI Patient seen and examined at bedside this morning. She reported feeling better and having a better night after not taking trazodone and Rozerem. She endorses shortness of breath intermittently at rest and with ambulation. She denies chest pain, abdominal pain, nausea, vomiting, problems with urination or bowel movements. Other systems 10 point review of system was negative except for what is noted in the HPI Objective Physical Examination Other physical findings General: Lying in bed, no acute distress Head/Neck/Throat: Trachea midline, mucous membranes moist Eyes: Sclera anicteric, no erythema or discharge appreciated bilaterally Thorax: On 4 L nasal cannula, coarse breath sounds bilaterally Cardiovascular: Normal heart rate, regular rhythm, normal S1, S2; no S3, S4, rubs/gallops/murmurs Abdomen: Bowel sounds present, soft/nontender/nondistended Genitourinary: No CVA tenderness, no Kaplan in place Musculoskeletal: Moving all extremities, no edema Skin: Warm, dry Neurologic: AAOx3, speech fluent and goal-directed, no focal deficits, grossly intact Assessment /Plan Assessment #Necrotizing pneumonia -Chlamydia pneumonia. Stopped due to meropenem today. Received 6 days of Vancomycin as co-infection w/ MRSA was a concern. She also received a course of fluconazole for a total of 7 days. We will follow off antibiotics at this time. -Supportive measures with acapella, and incentive spirometer. -Pulmonary team following. #Acute hypoxic respiratory failure with hypoxemia -Secondary to necrotizing pneumonia. Continue with plan as above. It has been difficult to wean patient off oxygen and has been having fluctuating requirements. Prednisone 30 mg that was started on 03/18 will be discontinued and will give a trial of Solu-Medrol 40 mg q12 to see if this helps for 1 to 2 days. -Supportive care with nebulized bronchodilators and Mucomyst. #Nodular pulmonary opacities -She will need a repeat ct-scan to ensure resolution in 4-6 weeks #Sinus tachycardia -CT angiogram was done to rule out PE, which was negative. An EKG as well as troponins has also been ordered to rule out ACS. Likely secondary to underlying respiratory status and anxiety. #Constipation -Continue with bowel regimen. #Insomnia/Anxious -We will leave hydroxyzine. Discontinued trazodone and Rozerem. #DVT ppx -Lovenox Plan/VTE VTE Prophylaxis Ordered?: Yes VS, I&O, 24H, Fishbone Vital Signs/I&O Vital Signs Date Time Temp Pulse Resp B/P (MAP) Pulse Ox O2 Delivery O2 Flow Rate FiO2 03/28/21 03:05 88 High Flow Cannula 6.0 03/28/21 02:19 86 03/28/21 02:19 20 03/28/21 02:00 98.5 105/60 (75) I&O- Last 24 Hours up to 6 AM 03/28/21 06:00 Intake Total 1500 ml Output Total 1100 ml Balance 400 ml Laboratory Data 24H LABS Laboratory Tests 2 03/27/21 06:43: Anion Gap 7L, Glomerular Filtration Rate > 60.0, Calcium Level 8.6, Phosphorus Level 3.7, Magnesium Level 2.5H, Total Bilirubin 0.2, Aspartate Amino Transf (AST/SGOT) 17, Alanine Aminotransferase (ALT/SGPT) 38, Alkaline Phosphatase 81, Total Protein 7.0, Albumin 3.0L, Albumin/Globulin Ratio 0.8L CBC/BMP Laboratory Tests 03/27/21 06:43 DORA YIN M.D. Mar 28, 2021 06:18
[2021-03-28] MEDS: methylPREDNISolone 40MG 1ML VIAL IV SCH (17:52)
[2021-03-28] MEDS: PARoxetine 20MG TABLET PO SCH (21:52)
[2021-03-29] VITALS (10 sets, daily range): BP systolic 128–152; BP diastolic 72–89; O2SAT 89–92
[2021-03-29] MEDS: IPRATROPIUM HFA INHALER 12.9 GRAMS (ATROVENT HFA) INH SCH ×4 (02:32→20:41)
[2021-03-29] MEDS: LEVALBUTEROL HFA 45MCG/ACT 15 GM INHALER INH SCH ×4 (02:34→20:41)
[2021-03-29] MEDS: SLF 3 ML SYR IV SCH ×3 (05:30→22:09)
[2021-03-29] MEDS: methylPREDNISolone 40MG 1ML VIAL IV SCH ×2 (05:30→17:36)
[2021-03-29] MEDS: ACETYLCYSTEINE 20% 4 ML VIAL (200MG/ML) INH SCH ×2 (07:42→20:41)
[2021-03-29 07:43] LABS: HEMATOCRIT 39.7 % (36.0-47.0); HEMOGLOBIN 12.6 g/dl (12.0-15.5); MEAN CORPUSCULAR HEMOGLOBIN 32.7 pg (27.0-33.0); MEAN CORPUSCULAR HGB CONC 31.7 g/dl (32.0-36.5); MEAN CORPUSCULAR VOLUME 103.1 fl (80.0-96.0); PLATELET COUNT, AUTOMATED 466 10^3/uL (150-450); RED BLOOD COUNT 3.85 10^6/uL (4.00-5.40)
[2021-03-29] MEDS: guaiFENesin ER 600 MG TAB PO SCH ×2 (07:49→22:08)
[2021-03-29] MEDS: ENOXAPARIN 40MG/0.4ML SYRINGE (J1650 PER 10MG) SC SCH (07:49)
[2021-03-29] MEDS: OMEPRAZOLE 20 MG CAP PO SCH ×2 (07:49→22:08)
[2021-03-29] MEDS: MIRALAX *UNIT DOSE* 17GM PACKET PO SCH (07:49)
[2021-03-29] MEDS: SENOKOT S TAB PO SCH ×2 (07:49→22:08)
[2021-03-29] MEDS: SODIUM CHLORIDE NASAL 0.65% SPRAY BTL (OCEAN) SCH ×2 (07:50→21:00)
[2021-03-29 08:14] LABS: BLOOD UREA NITROGEN 23 MG/DL (7-18); CALCIUM LEVEL 8.6 MG/DL (8.5-10.1); CARBON DIOXIDE LEVEL 26 MEQ/L (21-32); CHLORIDE LEVEL 106 MEQ/L (98-107); CREATININE FOR GFR 0.46 MG/DL (0.55-1.30); GLOMERULAR FILTRATION RATE > 60.0 (>51); GLUCOSE, FASTING 75 MG/DL (70-100); MAGNESIUM LEVEL 2.4 MG/DL (1.8-2.4); PHOSPHORUS LEVEL 3.1 MG/DL (2.5-4.9); SODIUM LEVEL 140 MEQ/L (136-145)
--- NOTE | 2021-03-29 13:25 | IPNPDOC ---
Subjective Date Seen The patient was seen on 03/29/21. Subjective Chief Complaint/HPI Patient seen and examined at bedside this morning. She reported having a good night without exacerbation in her respiratory status. At the time of evaluation, she denied chest pain, shortness of breath, abdominal pain, nausea, vomiting, problem with urination and bowel movements Other systems 10 point review of system was negative except for what is noted in the HPI Objective Physical Examination Other physical findings General: Lying in bed, no acute distress Head/Neck/Throat: Trachea midline, mucous membranes moist Eyes: Sclera anicteric, no erythema or discharge appreciated bilaterally Thorax: On 6 L nasal cannula, coarse breath sounds bilaterally Cardiovascular: Normal rate, regular rhythm, normal S1, S2; no S3, S4, rubs/gallops/murmurs Abdomen: Bowel sounds present, soft/nontender/nondistended Genitourinary: No CVA tenderness, no Kaplan in place Musculoskeletal: Moving all extremities, no edema Skin: Warm, dry Neurologic: AAOx3, speech fluent and goal-directed, no focal deficits, grossly intact Assessment /Plan Plan/VTE VTE Prophylaxis Ordered?: Yes Plan #Sinus tachycardia -Resolved. CT angiogram was done to rule out PE, which was negative. An EKG as well as troponins has also been ordered to rule out ACS. Likely secondary to underlying respiratory status and anxiety. #Necrotizing pneumonia -Chlamydia pneumonia. Stopped due to meropenem today. Received 6 days of Vancomycin as co-infection w/ MRSA was a concern. She also received a course of fluconazole for a total of 7 days. We will follow off antibiotics at this time. -Supportive measures with acapella, and incentive spirometer. -Pulmonary team following. #Acute hypoxic respiratory failure with hypoxemia -Secondary to necrotizing pneumonia. Continue with plan as above. She will likely need to go home with oxygen and close follow-up with the pulmonology team for hopefully coming off of it at some point. -Supportive care with nebulized bronchodilators and Mucomyst. -On 03/28 her prednisone 30 mg daily that was started for her respiratory status, was switched to Solu-Medrol 40 mg twice daily. It seems as if this significantly improved her respiratory status further. We'll continue with this for today and begin to taper on 03/30. Recommend a slow taper from there on in. #Nodular pulmonary opacities -She will need a repeat ct-scan to ensure resolution in 4-6 weeks #Constipation -Continue with bowel regimen. #Insomnia/Anxious -Resolved. If required consider hydroxyzine. She does not do too well with trazodone and Rozerem as she reports being too sedated and not being able to cough up phlegm at night. #DVT ppx -Lovenox VS, I&O, 24H, Fishbone Vital Signs/I&O Vital Signs Date Time Temp Pulse Resp B/P (MAP) Pulse Ox O2 Delivery O2 Flow Rate FiO2 03/29/21 02:35 18 03/29/21 02:20 89 Nasal Cannula 6.0 03/28/21 22:00 98.0 106 118/58 (78) I&O- Last 24 Hours up to 6 AM 03/29/21 06:00 Intake Total 1290 ml Output Total 1000 ml Balance 290 ml DORA YIN M.D. Mar 29, 2021 06:27
[2021-03-29] MEDS: PARoxetine 20MG TABLET PO SCH (22:08)
[2021-03-29] MEDS: POLYVINYL ALCOHOL OPHTH SOLN 15 ML(LIQUITEARS) OU PRN (22:19)
[2021-03-30] MEDS: LEVALBUTEROL HFA 45MCG/ACT 15 GM INHALER INH SCH ×4 (01:12→19:44)
[2021-03-30] MEDS: IPRATROPIUM HFA INHALER 12.9 GRAMS (ATROVENT HFA) INH SCH ×4 (01:13→19:43)
[2021-03-30 02:00] VITALS: BP 132/64
[2021-03-30] MEDS: methylPREDNISolone 40MG 1ML VIAL IV SCH ×2 (05:13→16:35)
[2021-03-30] MEDS: SLF 3 ML SYR IV SCH ×3 (05:13→21:31)
[2021-03-30] MEDS: POLYVINYL ALCOHOL OPHTH SOLN 15 ML(LIQUITEARS) OU PRN (05:18)
[2021-03-30 06:00] VITALS: BP 160/78
[2021-03-30 06:20] LABS: HEMATOCRIT 38.5 % (36.0-47.0); HEMOGLOBIN 12.5 g/dl (12.0-15.5); MEAN CORPUSCULAR HEMOGLOBIN 33.7 pg (27.0-33.0); MEAN CORPUSCULAR HGB CONC 32.5 g/dl (32.0-36.5); MEAN CORPUSCULAR VOLUME 103.8 fl (80.0-96.0); PLATELET COUNT, AUTOMATED 394 10^3/uL (150-450); RED BLOOD COUNT 3.71 10^6/uL (4.00-5.40); WHITE BLOOD COUNT 22.8 10^3/uL (4.0-10.0)
[2021-03-30 06:54] LABS: BLOOD UREA NITROGEN 25 MG/DL (7-18); CALCIUM LEVEL 8.2 MG/DL (8.5-10.1); CARBON DIOXIDE LEVEL 25 MEQ/L (21-32); CHLORIDE LEVEL 109 MEQ/L (98-107); CREATININE FOR GFR 0.56 MG/DL (0.55-1.30); GLOMERULAR FILTRATION RATE > 60.0 (>51); GLUCOSE, FASTING 90 MG/DL (70-100); MAGNESIUM LEVEL 2.3 MG/DL (1.8-2.4); PHOSPHORUS LEVEL 3.2 MG/DL (2.5-4.9); POTASSIUM SERUM 3.9 MEQ/L (3.5-5.1); SODIUM LEVEL 140 MEQ/L (136-145)
[2021-03-30] MEDS: ACETYLCYSTEINE 20% 4 ML VIAL (200MG/ML) INH SCH ×2 (07:24→19:45)
[2021-03-30] MEDS: MIRALAX *UNIT DOSE* 17GM PACKET PO SCH (08:43)
[2021-03-30] MEDS: OMEPRAZOLE 20 MG CAP PO SCH ×2 (08:43→21:30)
[2021-03-30] MEDS: ENOXAPARIN 40MG/0.4ML SYRINGE (J1650 PER 10MG) SC SCH (08:43)
[2021-03-30] MEDS: SENOKOT S TAB PO SCH ×2 (08:44→21:30)
[2021-03-30] MEDS: guaiFENesin ER 600 MG TAB PO SCH ×2 (08:44→21:30)
[2021-03-30] MEDS: SODIUM CHLORIDE NASAL 0.65% SPRAY BTL (OCEAN) SCH ×2 (08:44→21:00)
[2021-03-30 10:00] VITALS: BP 132/74
[2021-03-30 11:57] VITALS: O2SAT 90
--- NOTE | 2021-03-30 13:29 | IPNPDOC ---
Subjective Date Seen The patient was seen on 03/30/21. Subjective Chief Complaint/HPI Patient seen and examined at bedside this morning. She was asking why she has a chronic cough and productive sputum. She was explained at length that this may be a result from her underlying chronic bronchitis (is a chronic smoker but never had pulmonary function tests done), in addition to her recent pneumonia. She was also explained with the plan was including continuing with attempts to taper IV steroids. She denied chest pain, abdominal pain, nausea, vomiting, problems with urination and bowel movements Objective Physical Examination Other physical findings General: Lying in bed, no acute distress Head/Neck/Throat: Trachea midline, mucous membranes moist Eyes: Sclera anicteric, no erythema or discharge appreciated bilaterally Thorax: On 5 L nasal cannula, inspiratory crackles appreciated throughout lung torres bilaterally Cardiovascular: Normal rate, regular rhythm, normal S1, S2; no S3, S4, rubs/gallops/murmurs Abdomen: Bowel sounds present, soft/nontender/nondistended Genitourinary: No CVA tenderness, no Kaplan in place Musculoskeletal: Moving all extremities, no edema Skin: Warm, dry Neurologic: AAOx3, speech fluent and goal-directed, no focal deficits, grossly intact Assessment /Plan Plan/VTE VTE Prophylaxis Ordered?: Yes Plan #Sinus tachycardia -Resolved. CT angiogram was done to rule out PE, which was negative. An EKG as well as troponins not suggestive of ACS. Likely secondary to underlying respiratory status and anxiety. #Necrotizing pneumonia -Chlamydia pneumonia. She was treated with multiple antibiotics throughout her hospitalization - most recently she completed a course of meropenem and vancomycin. She also had a course of fluconazole. All antibiotics now are held and will continue to follow off antibiotics as she is doing well. -Supportive measures with acapella, and incentive spirometer. -Pulmonary team following. #Acute hypoxic respiratory failure with hypoxemia -Secondary to necrotizing pneumonia. Continue with plan as above. She will likely need to go home with oxygen and close follow-up with the pulmonology team for hopefully coming off of it at some point. -Supportive care with nebulized bronchodilators and Mucomyst. -On 03/28 her prednisone 30 mg daily that was started for her respiratory status, was switched to Solu-Medrol 40 mg twice daily. It seems as if this significantly improved her respiratory status further. We'll continue with this for today and begin to taper on 03/31. Recommend a slow taper from there on in. #Nodular pulmonary opacities -She will need a repeat ct-scan to ensure resolution in 4-6 weeks #Constipation -Continue with bowel regimen. #Insomnia/Anxious -Resolved. If required consider hydroxyzine. She does not do too well with trazodone and Rozerem as she reports being too sedated and not being able to cough up phlegm at night. #DVT ppx -Lovenox VS, I&O, 24H, Fishbone Vital Signs/I&O Vital Signs Date Time Temp Pulse Resp B/P (MAP) Pulse Ox O2 Delivery O2 Flow Rate FiO2 03/30/21 02:00 97.0 89 18 132/64 (86) 88 High Flow Cannula 6.0 I&O- Last 24 Hours up to 6 AM 03/30/21 06:00 Intake Total 900 ml Output Total 600 ml Balance 300 ml Laboratory Data 24H LABS Laboratory Tests 2 03/30/21 06:04: Nucleated Red Blood Cells % (auto) 0.0 CBC/BMP Laboratory Tests 03/30/21 06:04 DORA YIN M.D. Mar 30, 2021 06:22
[2021-03-30 14:00] VITALS: BP 130/78
[2021-03-30 21:08] VITALS: BP 129/60
[2021-03-30] MEDS: PARoxetine 20MG TABLET PO SCH (21:30)
[2021-03-31] VITALS (9 sets, daily range): BP systolic 130–163; BP diastolic 62–81; O2SAT 89–90
[2021-03-31] MEDS: LEVALBUTEROL HFA 45MCG/ACT 15 GM INHALER INH SCH ×4 (01:13→19:52)
[2021-03-31] MEDS: IPRATROPIUM HFA INHALER 12.9 GRAMS (ATROVENT HFA) INH SCH ×4 (01:19→19:54)
[2021-03-31] MEDS: methylPREDNISolone 40MG 1ML VIAL IV SCH ×2 (05:37→16:04)
[2021-03-31] MEDS: SLF 3 ML SYR IV SCH ×3 (05:37→21:25)
[2021-03-31 06:29] LABS: HEMATOCRIT 41.1 % (36.0-47.0); HEMOGLOBIN 12.9 g/dl (12.0-15.5); MEAN CORPUSCULAR HEMOGLOBIN 32.4 pg (27.0-33.0); MEAN CORPUSCULAR HGB CONC 31.4 g/dl (32.0-36.5); MEAN CORPUSCULAR VOLUME 103.3 fl (80.0-96.0); PLATELET COUNT, AUTOMATED 392 10^3/uL (150-450); RED BLOOD COUNT 3.98 10^6/uL (4.00-5.40); WHITE BLOOD COUNT 24.3 10^3/uL (4.0-10.0)
[2021-03-31 06:55] LABS: BLOOD UREA NITROGEN 23 MG/DL (7-18); CALCIUM LEVEL 8.6 MG/DL (8.5-10.1); CARBON DIOXIDE LEVEL 26 MEQ/L (21-32); CHLORIDE LEVEL 109 MEQ/L (98-107); CREATININE FOR GFR 0.51 MG/DL (0.55-1.30); GLOMERULAR FILTRATION RATE > 60.0 (>51); GLUCOSE, FASTING 84 MG/DL (70-100); MAGNESIUM LEVEL 2.3 MG/DL (1.8-2.4); PHOSPHORUS LEVEL 3.5 MG/DL (2.5-4.9); POTASSIUM SERUM 4.1 MEQ/L (3.5-5.1); SODIUM LEVEL 141 MEQ/L (136-145)
[2021-03-31] MEDS: ACETYLCYSTEINE 20% 4 ML VIAL (200MG/ML) INH SCH ×2 (07:12→19:52)
[2021-03-31] MEDS: OMEPRAZOLE 20 MG CAP PO SCH ×2 (09:15→21:25)
[2021-03-31] MEDS: guaiFENesin ER 600 MG TAB PO SCH ×2 (09:15→21:25)
[2021-03-31] MEDS: MIRALAX *UNIT DOSE* 17GM PACKET PO SCH (09:15)
[2021-03-31] MEDS: SENOKOT S TAB PO SCH ×2 (09:15→21:25)
[2021-03-31] MEDS: ENOXAPARIN 40MG/0.4ML SYRINGE (J1650 PER 10MG) SC SCH (09:16)
[2021-03-31] MEDS: SODIUM CHLORIDE NASAL 0.65% SPRAY BTL (OCEAN) SCH ×2 (09:16→21:26)
--- NOTE | 2021-03-31 10:58 | REP ---
INDICATION: Evaluate for LL consolidation. COMPARISON: 03/11/2021 TECHNIQUE: PA and lateral views FINDINGS: Since the previous study the consolidation in both lower lobes is increased slightly in extent. Small persistent right pleural effusion. Heart not enlarged. No failure. IMPRESSION: Large increasing infiltrates in both lower lobes. Right pleural effusion. <Electronically signed by Ethan Lara > 03/31/21 4535
--- NOTE | 2021-03-31 11:51 | IPNPDOC ---
Text Note Date of Service The patient was seen on 03/31/21. NOTE Subjective: Patient is a 56-year-old female with a PMHx of Depression, GERD who presented to emergency room with complaints of progressive shortness of breath. Patient was found to have multifocal pneumonia and was admitted to the hospital service for further evaluation and treatment. Pulmonology was called on consultation. Patient's hospital course has been complicated with a prolonged course of antibiotics. She's completed essentially 2 weeks of antibiotic therapy and still remains fairly hypoxic. Patient was seen and examined at the bedside. . She was sitting up in a couch appears to be comfortable, denies any chest pain, palpitations. Reports some cough without any significant expectoration. Denies any nausea, vomiting, abdominal pain or diarrhea. Denies any urinary discomfort. Objective: Vitals (See below) General: Lying in bed, no acute distress, comfortable, AAOx3 HEENT: NC, AT CVS: RRR, +S1S2 Lungs: Fair air entry b/l, -w/r/r Abdomen: Soft, ND, NT, +BSx4 Extremities: +PPx4, - Edema, - Calf tenderness Imaging: CTA Chest 03/25: 1. There is no evidence of a pulmonary embolism. 2. Extensive bilateral but predominantly right-sided pneumonia as described above and essentially unchanged in appearance from 03/17/2021 CXR 03/31: Large increasing infiltrates in both lower lobes. Right pleural effusion. Assessment and plan: Shortness of breath / acute hypoxic respiratory failure - likely 2/2 multifactorial etiology Large multifocal pneumonia - Clinically patient has reported improvement of her breathing - Patient is still fairly hypoxic requiring 6 L of nasal cannula oxygen - Imaging noted above - Blood cultures/sputum cultures have essentially been negative - Klebsiella pneumonia IgG she and IgA antibodies were positive - s/p Meropenem / Vancomycin; s/p Fluconazole - Will start Levofloxacin - Case discussed with Pulmonology; patient may require lung biopsy and repeat imaging after her acute event results Possibly reactive airway / component of cryptogenic organizing pneumonia - Will c/w Solumedrol for now - c/w inhaled therapy as ordered / acapella / incentive spirometry / Guaifenesin - Will start Chest PT Nodular pulmonary opacities - Will need repeat imaging after her acute event resolves Constipation - c/w bowel regimen as ordered Insomnia / Anxiety / Depression - c/w Paroxetine GERD - c/w Omeprazole DVT prophylaxis - c/w Lovenox Disposition: - Awaiting clinical improvement - Anticipate home with services on discharge VS,Kar, I+O VS, Kar, I+O Laboratory Tests 03/31/21 06:03 Vital Signs Date Time Temp Pulse Resp B/P (MAP) Pulse Ox O2 Delivery O2 Flow Rate FiO2 03/31/21 10:00 99.6 100 19 130/62 (84) 89 Nasal Cannula 5.0 I&O- Last 24 Hours up to 6 AM 03/31/21 06:00 Intake Total 240 ml Output Total 600 ml Balance -360 ml SHERIN LOAIZA MD Mar 31, 2021 11:51
[2021-03-31] MEDS: LevoFLOXacin 750 MG TABLET PO SCH (11:55)
[2021-03-31] MEDS: LEVALBUTEROL HFA 45MCG/ACT 15 GM INHALER INH PRN (16:04)
[2021-03-31] MEDS: PARoxetine 20MG TABLET PO SCH (21:25)
[2021-03-31] MEDS: POLYVINYL ALCOHOL OPHTH SOLN 15 ML(LIQUITEARS) OU PRN (21:27)
[2021-04-01] MEDS: IPRATROPIUM HFA INHALER 12.9 GRAMS (ATROVENT HFA) INH SCH ×5 (02:48→20:26)
[2021-04-01] MEDS: LEVALBUTEROL HFA 45MCG/ACT 15 GM INHALER INH SCH ×4 (02:48→20:25)
[2021-04-01] MEDS: methylPREDNISolone 40MG 1ML VIAL IV SCH ×2 (05:49→17:47)
[2021-04-01] MEDS: LevoFLOXacin 750 MG TABLET PO SCH (05:49)
[2021-04-01 05:50] VITALS: BP 157/84
[2021-04-01] MEDS: SLF 3 ML SYR IV SCH ×3 (05:55→21:38)
[2021-04-01 07:33] LABS: BASO % 0.1 % (0.0-1.0); EOS % 0.2 % (0.0-3.0); HEMATOCRIT 40.8 % (36.0-47.0); HEMOGLOBIN 13.2 g/dl (12.0-15.5); LYMPH # 4.9 10^3/uL (1.5-5.0); LYMPH % 20.9 % (24.0-44.0); MEAN CORPUSCULAR HEMOGLOBIN 33.1 pg (27.0-33.0); MEAN CORPUSCULAR HGB CONC 32.4 g/dl (32.0-36.5); MEAN CORPUSCULAR VOLUME 102.3 fl (80.0-96.0); MONO # 1.8 10^3/uL (0.0-0.8); MONO % 7.6 % (2.0-8.0); NEUTROPHILS # 16.7 10^3/uL (1.5-8.5); NEUTROPHILS % 70.6 % (36.0-66.0); PLATELET COUNT, AUTOMATED 354 10^3/uL (150-450); RED BLOOD COUNT 3.99 10^6/uL (4.00-5.40)
[2021-04-01 07:53] LABS: BLOOD UREA NITROGEN 20 MG/DL (7-18); CALCIUM LEVEL 8.5 MG/DL (8.5-10.1); CARBON DIOXIDE LEVEL 26 MEQ/L (21-32); CHLORIDE LEVEL 106 MEQ/L (98-107); CREATININE FOR GFR 0.67 MG/DL (0.55-1.30); GLOMERULAR FILTRATION RATE > 60.0 (>51); GLUCOSE, FASTING 87 MG/DL (70-100); MAGNESIUM LEVEL 2.2 MG/DL (1.8-2.4); POTASSIUM SERUM 4.2 MEQ/L (3.5-5.1); SODIUM LEVEL 139 MEQ/L (136-145)
[2021-04-01 08:06] LABS: WHITE BLOOD COUNT 23.6 10^3/uL (4.0-10.0)
[2021-04-01] MEDS: SODIUM CHLORIDE NASAL 0.65% SPRAY BTL (OCEAN) SCH ×2 (08:09→21:37)
[2021-04-01] MEDS: ENOXAPARIN 40MG/0.4ML SYRINGE (J1650 PER 10MG) SC SCH (08:09)
[2021-04-01] MEDS: guaiFENesin ER 600 MG TAB PO SCH ×2 (08:09→21:36)
[2021-04-01] MEDS: SENOKOT S TAB PO SCH ×2 (08:09→21:36)
[2021-04-01] MEDS: OMEPRAZOLE 20 MG CAP PO SCH ×2 (08:09→21:36)
[2021-04-01] MEDS: MIRALAX *UNIT DOSE* 17GM PACKET PO SCH (08:09)
[2021-04-01] MEDS: ACETYLCYSTEINE 20% 4 ML VIAL (200MG/ML) INH SCH ×2 (08:18→20:26)
[2021-04-01 10:00] VITALS: BP 137/84
--- NOTE | 2021-04-01 10:54 | IPNPDOC ---
Text Note Date of Service The patient was seen on 04/01/21. NOTE Subjective: Patient is a 56-year-old female with a PMHx of Depression, GERD who presented to emergency room with complaints of progressive shortness of breath. Patient was found to have multifocal pneumonia and was admitted to the hospital service for further evaluation and treatment. Pulmonology was called on consultation. Patient's hospital course has been complicated with a prolonged course of antibiotics. She's completed essentially 2 weeks of antibiotic therapy and still remains fairly hypoxic. Patient was seen and examined at the bedside. Currently she denies any CP, palpitations. She reports some SOB with exertion. Continues to note that she is having a productive cough with "foamy" sputum. Denies any abdominal pain, N/V, diarrhea or urinary discomfort. Objective: Vitals (See below) General: Patient is sitting up in touch appears to be comfortable, not in any acute distress, awake / alert, oriented 3 HEENT: Normocephalic and atraumatic CVS: +S1S2 Lungs: Fair air entry b/l, no wheezing, rales or rhonchi Abdomen: Soft, ND, NT Extremities: no evidence of edema, - Calf tenderness Imaging: CTA Chest 03/25: 1. There is no evidence of a pulmonary embolism. 2. Extensive bilateral but predominantly right-sided pneumonia as described above and essentially unchanged in appearance from 03/17/2021 CXR 03/31: Large increasing infiltrates in both lower lobes. Right pleural effusion. Assessment and plan: Shortness of breath / acute hypoxic respiratory failure - likely 2/2 multifactorial etiology Large multifocal pneumonia - Clinically patient has reported improvement of her breathing - Patient still has fairly high oxygen requirement at 5-6 L - Imaging noted above - Blood cultures/sputum cultures have essentially been negative - Chlamydia pneumonia IgG and IgA antibodies were positive - s/p Meropenem / Vancomycin; s/p Fluconazole - c/w Levofloxacin - Case discussed with Pulmonology; patient may require lung biopsy and repeat imaging after her acute event results Possibly reactive airway / component of cryptogenic organizing pneumonia - c/w Solumedrol for now - c/w inhaled therapy as ordered / acapella / incentive spirometry / Guaifenesin / chest PT Nodular pulmonary opacities - Will need repeat imaging after her acute event resolves Leukocytosis - possibly 2/2 reactive etiology 2/2 corticosteroids, possibly 2/2 infectious etiology - Peripheral smear: Leukocytosis with shift to left and rare immature myeloid cells, Mild early macrocytic anemia, Hx of necrotizing pneumonia and steroid i ntake, both of which can cause leukocytosis, correlation with clinical findings is recommended. - c/w Antibiotics (See above) Constipation - c/w bowel regimen as ordered Insomnia / Anxiety / Depression - c/w Paroxetine GERD - c/w Omeprazole DVT prophylaxis - c/w Lovenox Disposition: - Awaiting clinical improvement; awaiting for oxygenation requirement to improve - Anticipate home with services on discharge Kar AVILES, I+O VSKar I+O Laboratory Tests 04/01/21 07:14 Vital Signs Date Time Temp Pulse Resp B/P (MAP) Pulse Ox O2 Delivery O2 Flow Rate FiO2 04/01/21 08:20 Nasal Cannula 6.0 04/01/21 05:50 97.8 80 18 157/84 (378) 15 I&O- Last 24 Hours up to 6 AM 04/01/21 06:00 Intake Total 930 ml Output Total 550 ml Balance 380 ml SHERIN LOAIZA MD Apr 01, 2021 10:54
--- NOTE | 2021-04-01 12:01 | IPNPDOC ---
Subjective Date Seen The patient was seen on 04/01/21. Subjective Chief Complaint/HPI This is a 56-year-old female with past medical history of depression who was admitted to the hospital on February 24, 2021 with multifocal community-acquired pneumonia. I was reconsulted to reassess patient as she is still requiring significant amount of oxygen. Since she was admitted she has been treated with multiple antibiotics starting with doxycycline and ceftriaxone and azithromycin. She was also on Levaquin and vancomycin. She also received 1 week of fluconazole due to her sputum growing Ivon. One half procalcitonin slightly went up, she also received a course of vancomycin and meropenem. She also had a comprehensive speech and swallow eval therapy that shows no evidence of aspiration. She also received a long course of systemic corticosteroid. Despite all these therapy and multiple CT scan of the chest, she showed minimal improvement. Therefore I was reconsulted to see patient. Patient today complains of weakness and fatigue. She also experiencing shortness of breath and productive cough consist of whitish sputum. She denies of chest pain, fever, chills, orthopnea. General: Denies: Chills, Fatigue Constitutional: Denies: Fever ENT: Denies: Sinus Congestion, Post Nasal Drip, Sore Throat Skin: Denies: Rash Pulmonary: Reports: Dyspnea, Cough Cardiovascular: Denies: Chest Pain, Palpitations, Orthopnea, Paroxysmal Noc. Dyspnea Gastrointestinal: Denies: Nausea, Vomiting, Abdominal Pain, Diarrhea Neurological: Denies: Weakness, Numbness Psych: Denies: Depression Objective Physical Examination General Exam: Positive: Alert, Cooperative, Mild Distress Eye Exam: Negative: Sclera icteric ENT Exam: Positive: Atraumatic Neck Exam: Positive: Supple; Negative: JVD Chest Exam: Positive: Rhonchi (Bibasilar coarse crackle.) Heart Exam: Positive: Rate Normal, Regular Rhythm Abdomen Exam: Positive: Normal bowel sounds, Soft; Negative: Tenderness Extremity Exam: Positive: Clubbing; Negative: Edema Skin Exam: Negative: Rash Neuro Exam: Negative: Normal Speech Psych Exam: Positive: Mental status NL Assessment /Plan Assessment This is a 56-year-old female with past medical history of depression admitted to the hospital over a month ago for multifocal community-acquired pneumonia and hypoxic respiratory failure. She received treatment with systemic corticosteroids as well as multiple antibiotics. 1. Hypoxic respiratory failure 2. Multifocal community-acquired pneumonia 3. Suspected microaspiration 4. Questionable ILD with ILD exacerbation Problems (1) CAP (community acquired pneumonia) Status: Acute (2) Hypoxia Status: Acute (3) Elevated liver enzymes Status: Acute (4) Leukocytosis Status: Acute Plan/VTE VTE Prophylaxis Ordered?: Yes Plan In light of treatment with multiple antibiotic and systemic corticosteroid, patient showed minimal improvement. Serial CT scan was reviewed independently. There is minimal improvement of the infiltrate on the CT scan with new groundglass opacity. She may be microaspirating despite her comprehensive speech and swallow eval which was normal. Therefore I recommend modified barium swallow. Other differentials include interstitial lung disease including CTD- ILD, RB ILD, IPF. Although her procalcitonin had dramatically trended down from 30 to 3, it is still not normal. Therefore I recommend continuing with antibiotics therapy. I also recommend to continue with systemic corticosteroid. I recommend to order autoimmune panel including ANGELIC, rheumatoid factor, anti- CCP, anti-SCL 70, anticentromere antibody, anti-FLAT KNITTER, anti-SSA, anti-SSB, CARMELO, anti-Yvette 1 antibody, anti-Ro and anti-La. I strongly suspect her underlying lung disease is chronic as evident by significant clubbing of her fingers. Ideally, after all the work-up done, she may benefit from bronchoscopy with transbronchial biopsy and BAL to diagnose the etiology of her disease process. However given the risk of worsening hypoxemia and pneumothorax in the setting of her significant oxygen requirement, I will hold off performing bronchoscopy for now. Disposition Continue hospital care. VS, I&O, 24H, Fishbone Vital Signs/I&O Vital Signs Date Time Temp Pulse Resp B/P (MAP) Pulse Ox O2 Delivery O2 Flow Rate FiO2 04/01/21 10:00 98.5 89 18 137/84 (101) 92 Nasal Cannula 5.0 I&O- Last 24 Hours up to 6 AM 04/01/21 06:00 Intake Total 930 ml Output Total 550 ml Balance 380 ml Laboratory Data 24H LABS Laboratory Tests 2 04/01/21 07:14: Immature Granulocyte % (Auto) 0.6, Neutrophils (%) (Auto) 70.6H, Lymphocytes (%) (Auto) 20.9L, Monocytes (%) (Auto) 7.6, Eosinophils (%) (Auto) 0.2, Basophils (%) (Auto) 0.1, Neutrophils # (Auto) 16.7H, Lymphocytes # (Auto) 4.9, Monocytes # (Auto) 1.8H, Eosinophils # (Auto) 0.0, Basophils # (Auto) 0.0, Nucleated Red Blood Cells % (auto) 0.0, Anion Gap 7L, Glomerular Filtration Rate > 60.0, Calcium Level 8.5, Magnesium Level 2.2 CBC/BMP Laboratory Tests 04/01/21 07:14 EDGAR LAM MD Apr 01, 2021 12:01
[2021-04-01 12:11] LABS: RHEUMATOID FACTOR QUANT 11.7 IU/ML (<15.0)
[2021-04-01 14:00] VITALS: BP 138/84
[2021-04-01 14:25] VITALS: O2SAT 90
[2021-04-01] MEDS: LEVALBUTEROL HFA 45MCG/ACT 15 GM INHALER INH PRN (15:44)
[2021-04-01 18:00] VITALS: BP 130/80
[2021-04-01 21:00] VITALS: BP 129/81
[2021-04-01] MEDS: PARoxetine 20MG TABLET PO SCH (21:37)
[2021-04-01] MEDS ORDERED: OXYMETAZOLINE 0.05% NASAL SPRAY (AFRIN) PRN (23:55)
[2021-04-02] MEDS: LEVALBUTEROL HFA 45MCG/ACT 15 GM INHALER INH SCH ×4 (01:57→19:55)
[2021-04-02] MEDS: IPRATROPIUM HFA INHALER 12.9 GRAMS (ATROVENT HFA) INH SCH ×4 (01:58→19:54)
[2021-04-02 02:00] VITALS: BP 147/74
[2021-04-02] MEDS: SLF 3 ML SYR IV SCH ×3 (05:17→20:24)
[2021-04-02] MEDS: LevoFLOXacin 750 MG TABLET PO SCH (05:17)
[2021-04-02] MEDS: methylPREDNISolone 40MG 1ML VIAL IV SCH ×2 (05:17→16:48)
[2021-04-02 05:53] VITALS: BP 166/81
[2021-04-02 06:46] LABS: HEMATOCRIT 42.4 % (36.0-47.0); HEMOGLOBIN 13.5 g/dl (12.0-15.5); MEAN CORPUSCULAR HEMOGLOBIN 32.9 pg (27.0-33.0); MEAN CORPUSCULAR HGB CONC 31.8 g/dl (32.0-36.5); MEAN CORPUSCULAR VOLUME 103.4 fl (80.0-96.0); PLATELET COUNT, AUTOMATED 353 10^3/uL (150-450)
[2021-04-02 06:49] LABS: WHITE BLOOD COUNT 23.7 10^3/uL (4.0-10.0)
[2021-04-02 07:07] LABS: BLOOD UREA NITROGEN 24 MG/DL (7-18); CALCIUM LEVEL 9.2 MG/DL (8.5-10.1); CARBON DIOXIDE LEVEL 25 MEQ/L (21-32); CHLORIDE LEVEL 106 MEQ/L (98-107); CREATININE FOR GFR 0.67 MG/DL (0.55-1.30); GLOMERULAR FILTRATION RATE > 60.0 (>51); GLUCOSE, FASTING 88 MG/DL (70-100); MAGNESIUM LEVEL 2.3 MG/DL (1.8-2.4); POTASSIUM SERUM 4.1 MEQ/L (3.5-5.1); SODIUM LEVEL 140 MEQ/L (136-145)
[2021-04-02] MEDS: ACETYLCYSTEINE 20% 4 ML VIAL (200MG/ML) INH SCH ×2 (07:21→19:55)
[2021-04-02 07:38] LABS: ATYPICAL LYMPH 9 % (0-5); LYMPHOCYTES 17 % (16-44); MONOCYTES 8 % (0-5); NEUTROPHILS 66 % (28-66); NUCLEATED RED BLOOD CELL 1 % (0-0)
[2021-04-02 07:40] LABS: PLATELET ESTIMATE NORMAL (NORMAL)
[2021-04-02] MEDS: OMEPRAZOLE 20 MG CAP PO SCH ×2 (08:54→20:23)
[2021-04-02] MEDS: SENOKOT S TAB PO SCH ×2 (08:54→20:23)
[2021-04-02] MEDS: MIRALAX *UNIT DOSE* 17GM PACKET PO SCH (08:55)
[2021-04-02] MEDS: SODIUM CHLORIDE NASAL 0.65% SPRAY BTL (OCEAN) SCH ×2 (08:55→20:24)
[2021-04-02] MEDS: guaiFENesin ER 600 MG TAB PO SCH ×2 (08:55→20:23)
[2021-04-02] MEDS: ENOXAPARIN 40MG/0.4ML SYRINGE (J1650 PER 10MG) SC SCH (08:55)
--- NOTE | 2021-04-02 11:21 | IPNPDOC ---
Text Note Date of Service The patient was seen on 04/02/21. NOTE Subjective: Patient is a 56-year-old female with a PMHx of Depression, GERD who presented to emergency room with complaints of progressive shortness of breath. Patient was found to have multifocal pneumonia and was admitted to the hospital service for further evaluation and treatment. Pulmonology was called on consultation. Patient's hospital course has been complicated with a prolonged course of antibiotics. She's completed essentially 2 weeks of antibiotic therapy and still remains fairly hypoxic. Patient was seen and examined at the bedside. Patient was seen sitting in Which appear to be comfortable, denies any nausea, vomiting, chest pain, palpitations, did report a cough with foamy white sputum. Denies any abdominal pain, diarrhea, or urinary discomfort. Objective: Vitals (See below) General: Patient is sitting up on the couch, appears comfortable without any acute distress, is awake and alert, oriented 3 HEENT: Head is atraumatic and normocephalic CVS: +S1S2 Lungs: Air entry, again, appears to be fair bilaterally without any auscultated evidence of crackles, wheezing or rhonchi Abdomen: Soft, nondistended and nontender Extremities: Lower extremities are without any significant edema Imaging: CTA Chest 03/25: 1. There is no evidence of a pulmonary embolism. 2. Extensive bilateral but predominantly right-sided pneumonia as described above and essentially unchanged in appearance from 03/17/2021 CXR 03/31: Large increasing infiltrates in both lower lobes. Right pleural effusion. Assessment and plan: Shortness of breath / acute hypoxic respiratory failure - likely 2/2 multifactorial etiology - Breathing is relatively stable without any significant change compared to yesterday - Currently still on same level of supplemental oxygen; 5L Large multifocal pneumonia - Imaging noted above - Blood cultures/sputum cultures have essentially been negative - Chlamydia pneumonia IgG and IgA antibodies were positive - s/p Meropenem / Vancomycin; s/p Fluconazole - c/w Levofloxacin Possibly reactive airway / component of cryptogenic organizing pneumonia / interstitial lung disease - possibly 2/2 autoimmune etiology / RA - Autoimmune workup remains pending - c/w Solumedrol for now - c/w inhaled therapy as ordered / acapella / incentive spirometry / Guaifenesin / chest PT - Pulmonology on consultation - Depending on autoimmune workup will consider consultation with rheumatology if required Nodular pulmonary opacities - Will need repeat imaging after her acute event resolves Leukocytosis - possibly 2/2 reactive etiology 2/2 corticosteroids, possibly 2/2 infectious etiology - Peripheral smear: Leukocytosis with shift to left and rare immature myeloid cells, Mild early macrocytic anemia, Hx of necrotizing pneumonia and steroid intake, both of which can cause leukocytosis, correlation with clinical findings is recommended. - c/w Antibiotics (See above) Constipation - c/w bowel regimen as ordered Insomnia / Anxiety / Depression - c/w Paroxetine GERD - c/w Omeprazole DVT prophylaxis - c/w Lovenox Disposition: - Will need home services on discharge - Patient does not want rehabilitation - Awaiting lab work / clinical improvement VS,Kar, I+O VS, Kar, I+O Laboratory Tests 04/02/21 06:14 Vital Signs Date Time Temp Pulse Resp B/P (MAP) Pulse Ox O2 Delivery O2 Flow Rate FiO2 04/02/21 05:53 95.9 79 18 166/81 (109) 88 04/02/21 02:00 High Flow Cannula 5.0 I&O- Last 24 Hours up to 6 AM 04/02/21 06:00 Intake Total 2480 ml Output Total 700 ml Balance 1780 ml SHERIN LOAIZA MD Apr 02, 2021 11:21
[2021-04-02 14:00] VITALS: BP 141/91
[2021-04-02 18:00] VITALS: BP 134/85
[2021-04-02] MEDS: PARoxetine 20MG TABLET PO SCH (20:23)
[2021-04-02] MEDS: POLYVINYL ALCOHOL OPHTH SOLN 15 ML(LIQUITEARS) OU PRN (20:24)
[2021-04-02 21:36] VITALS: BP 130/82
[2021-04-02 22:03] VITALS: O2SAT 91
[2021-04-03] VITALS (7 sets, daily range): BP systolic 116–137; BP diastolic 66–86; O2SAT 89–90
[2021-04-03 00:07] LABS: ANA (HEP2) Negative (.); ANTI CENTROMERE ANTIBODY <0.2 AI (0.0-0.9); ANTI SCLERODERMA ANTIBODIES <0.2 AI (0.0-0.9); CYCLIC CITRULLINATED PEPTIDE 6 units (0-19)
[2021-04-03] MEDS: IPRATROPIUM HFA INHALER 12.9 GRAMS (ATROVENT HFA) INH SCH ×4 (01:16→19:37)
[2021-04-03] MEDS: LEVALBUTEROL HFA 45MCG/ACT 15 GM INHALER INH SCH ×4 (01:16→19:37)
[2021-04-03] MEDS: LevoFLOXacin 750 MG TABLET PO SCH (05:59)
[2021-04-03] MEDS: SLF 3 ML SYR IV SCH ×3 (06:00→21:39)
[2021-04-03 06:12] LABS: BASO # 0.1 10^3/uL (0.0-0.2); BASO % 0.2 % (0.0-1.0); EOS % 0.2 % (0.0-3.0); HEMATOCRIT 41.2 % (36.0-47.0); HEMOGLOBIN 13.2 g/dl (12.0-15.5); LYMPH # 7.2 10^3/uL (1.5-5.0); LYMPH % 28.1 % (24.0-44.0); MEAN CORPUSCULAR HEMOGLOBIN 32.8 pg (27.0-33.0); MEAN CORPUSCULAR VOLUME 102.2 fl (80.0-96.0); MONO # 2.3 10^3/uL (0.0-0.8); MONO % 9.1 % (2.0-8.0); NEUTROPHILS # 15.9 10^3/uL (1.5-8.5); NEUTROPHILS % 61.7 % (36.0-66.0); PLATELET COUNT, AUTOMATED 314 10^3/uL (150-450); RED BLOOD COUNT 4.03 10^6/uL (4.00-5.40)
[2021-04-03] MEDS: methylPREDNISolone 40MG 1ML VIAL IV SCH ×2 (06:14→17:51)
[2021-04-03 06:41] LABS: BLOOD UREA NITROGEN 24 MG/DL (7-18); CALCIUM LEVEL 8.5 MG/DL (8.5-10.1); CARBON DIOXIDE LEVEL 26 MEQ/L (21-32); CHLORIDE LEVEL 107 MEQ/L (98-107); CREATININE FOR GFR 0.63 MG/DL (0.55-1.30); GLOMERULAR FILTRATION RATE > 60.0 (>51); GLUCOSE, FASTING 75 MG/DL (70-100); MAGNESIUM LEVEL 2.3 MG/DL (1.8-2.4); POTASSIUM SERUM 4.1 MEQ/L (3.5-5.1); SODIUM LEVEL 139 MEQ/L (136-145)
[2021-04-03 06:46] LABS: WHITE BLOOD COUNT 25.7 10^3/uL (4.0-10.0)
[2021-04-03] MEDS: ACETYLCYSTEINE 20% 4 ML VIAL (200MG/ML) INH SCH ×2 (07:25→19:37)
[2021-04-03] MEDS: SENOKOT S TAB PO SCH ×2 (09:53→21:39)
[2021-04-03] MEDS: guaiFENesin ER 600 MG TAB PO SCH ×2 (09:53→21:39)
[2021-04-03] MEDS: OMEPRAZOLE 20 MG CAP PO SCH ×2 (09:53→21:39)
[2021-04-03] MEDS: MIRALAX *UNIT DOSE* 17GM PACKET PO SCH (09:53)
[2021-04-03] MEDS: ENOXAPARIN 40MG/0.4ML SYRINGE (J1650 PER 10MG) SC SCH (09:53)
[2021-04-03] MEDS: SODIUM CHLORIDE NASAL 0.65% SPRAY BTL (OCEAN) SCH ×2 (09:54→21:39)
--- NOTE | 2021-04-03 10:51 | IPNPDOC ---
Subjective Date Seen The patient was seen on 04/03/21. Subjective Chief Complaint/HPI Patient still experience shortness of breath and productive cough consistent whitish sputum. She denies of fever or chills. General: Denies: Chills, Fatigue Constitutional: Denies: Fever ENT: Denies: Sore Throat Pulmonary: Reports: Dyspnea, Cough Cardiovascular: Denies: Chest Pain, Palpitations, Orthopnea Gastrointestinal: Denies: Nausea, Vomiting, Diarrhea Objective Physical Examination General Exam: Positive: Alert, Cooperative, Mild Distress Eye Exam: Negative: Sclera icteric ENT Exam: Positive: Atraumatic Neck Exam: Positive: Supple; Negative: JVD Chest Exam: Positive: Rhonchi (Bibasilar coarse crackle.) Heart Exam: Positive: Rate Normal, Regular Rhythm Abdomen Exam: Positive: Normal bowel sounds, Soft; Negative: Tenderness Extremity Exam: Positive: Clubbing; Negative: Edema Skin Exam: Negative: Rash Neuro Exam: Negative: Normal Speech Psych Exam: Positive: Mental status NL Assessment /Plan Assessment This is a 56-year-old female with past medical history of depression admitted to the hospital over a month ago for multifocal community-acquired pneumonia and hypoxic respiratory failure. She received treatment with systemic corticosteroids as well as multiple antibiotics. 1. Hypoxic respiratory failure 2. Multifocal community-acquired pneumonia 3. Active tobacco smoking 4. Questionable ILD with ILD exacerbation Problems (1) CAP (community acquired pneumonia) Status: Acute (2) Hypoxia Status: Acute (3) Elevated liver enzymes Status: Acute (4) Leukocytosis Status: Acute Plan/VTE VTE Prophylaxis Ordered?: Yes Plan In light of multiple antibiotics administration and systemic corticosteroid, patient had minimal improvement in her respiratory status. There was also minimal improvement on the radiographic imaging. She had comprehensive speech and swallow evaluation, modified barium swallow, fiberoptic evaluation of her epiglottis which all showed that she is not aspirating. There is significant clubbing on the finger which suggest that her hypoxia is likely chronic. There may be a underlying disease process in the background on top of the pneumonia w hich she presented with. There is a questionable of interstitial lung disease with ILD flare. Her CAT scan of the chest shows multilobar consolidation with patchy groundglass opacity. Autoimmune panel are mostly negative with the rest of them pending. I do not anticipate she has a connective tissue disease. Ideally, I would like to perform a bronchoscopy with transbronchial biopsy. Given that she is on significant amount of oxygen, there is a risk of prolonged intubation and worsening respiratory failure. Therefore I will hold off performing bronchoscopy. I recommend her to complete 2 weeks of antibiotic with prolonged course of systemic corticosteroids until she can be seen in the p ulmonology office for further plan. She will need to be discharged on home supplemental oxygen. Disposition Anticipate discharge in the next 24 hours. VS, I&O, 24H, Fishbone Vital Signs/I&O Vital Signs Date Time Temp Pulse Resp B/P (MAP) Pulse Ox O2 Delivery O2 Flow Rate FiO2 04/03/21 06:06 98.3 81 20 132/79 (96) 89 Nasal Cannula 5.0 I&O- Last 24 Hours up to 6 AM 04/03/21 06:00 Intake Total 975 ml Output Total 1150 ml Balance -175 ml Laboratory Data 24H LABS Laboratory Tests 2 04/03/21 05:57: Immature Granulocyte % (Auto) 0.7, Neutrophils (%) (Auto) 61.7, Lymphocytes (%) (Auto) 28.1, Monocytes (%) (Auto) 9.1H, Eosinophils (%) (Auto) 0.2, Basophils (%) (Auto) 0.2, Neutrophils # (Auto) 15.9H, Lymphocytes # (Auto) 7.2H, Monocytes # (Auto) 2.3H, Eosinophils # (Auto) 0.0, Basophils # (Auto) 0.1, Nucleated Red Blood Cells % (auto) 0.0, Anion Gap 6L, Glomerular Filtration Rate > 60.0, Calcium Level 8.5, Magnesium Level 2.3 CBC/BMP Laboratory Tests 04/03/21 05:57 EDGAR LAM MD Apr 03, 2021 10:51
--- NOTE | 2021-04-03 13:09 | IPNPDOC ---
Text Note Date of Service The patient was seen on 04/03/21. NOTE Subjective: Patient is a 56-year-old female with a PMHx of Depression, GERD who presented to emergency room with complaints of progressive shortness of breath. Patient was found to have multifocal pneumonia and was admitted to the hospital service for further evaluation and treatment. Pulmonology was called on consultation. Patient's hospital course has been complicated with a prolonged course of antibiotics. She's completed essentially 2 weeks of antibiotic therapy and still remains fairly hypoxic. Patient was seen and examined at the bedside. Patient reports her breathing is doing relatively the same, still reports a cough with foamy sputum. Denies any chest pain or palpitations. No nausea, vomiting, abdominal pain, diarrhea, or urinary discomfort. Objective: Vitals (See below) General: Sitting up in bed, appears comfortable, not in any acute distress, awake, alert, oriented x person, place and time HEENT: AT, NC CVS: +S1S2 Lungs: There appears to be fair air entry bilaterally without any evidence of crackles, wheezing or rhonchi Abdomen: Abdomen remains soft without any appreciable tenderness or distention Extremities: No edema Imaging: CTA Chest 03/25: 1. There is no evidence of a pulmonary embolism. 2. Extensive bilateral but predominantly right-sided pneumonia as described above and essentially unchanged in appearance from 03/17/2021 CXR 03/31: Large increasing infiltrates in both lower lobes. Right pleural effusion. Assessment and plan: Shortness of breath / acute hypoxic respiratory failure - likely 2/2 multifactorial etiology - No significant change in breathing / Cough persists - Supplemental oxygen requirement remains unchanged / stable - Currently on 5L NC oxygen Large multifocal pneumonia - Imaging noted above - PCT improving - Blood cultures/sputum cultures have essentially been negative - Chlamydia pneumonia IgG and IgA antibodies were positive - s/p Meropenem / Vancomycin; s/p Fluconazole - c/w Levofloxacin Possibly reactive airway / component of cryptogenic organizing pneumonia / interstitial lung disease - possibly 2/2 autoimmune etiology, possibly 2/2 smoking? - RF negative - ANGELIC negative; will check for titer / pattern - c/w Solumedrol for now - c/w inhaled therapy as ordered / acapella / incentive spirometry / Guaifenesin / chest PT - Pulmonology on consultation; appreciate their input Nodular pulmonary opacities - Will need repeat imaging after her acute event resolves Leukocytosis - possibly 2/2 reactive etiology 2/2 corticosteroids, possibly 2/2 infectious etiology - Peripheral smear: Leukocytosis with shift to left and rare immature myeloid cells, Mild early macrocytic anemia, Hx of necrotizing pneumonia and steroid intake, both of which can cause leukocytosis, correlation with clinical findings is recommended. - c/w Antibiotics (See above) Constipation - c/w bowel regimen as ordered Insomnia / Anxiety / Depression - c/w Paroxetine GERD - c/w Omeprazole DVT prophylaxis - c/w Lovenox Disposition: - Will need home services on discharge - Patient does not want rehabilitation - Will require supplemental oxygen on discharge - Awaiting lab work / clinical improvement VS,Fishbone, I+O VS, Fishbone, I+O Laboratory Tests 04/03/21 05:57 Vital Signs Date Time Temp Pulse Resp B/P (MAP) Pulse Ox O2 Delivery O2 Flow Rate FiO2 04/03/21 06:06 98.3 81 20 132/79 (96) 89 Nasal Cannula 5.0 I&O- Last 24 Hours up to 6 AM 04/03/21 06:00 Intake Total 975 ml Output Total 1150 ml Balance -175 ml SHERIN LOAIZA MD Apr 03, 2021 13:09
[2021-04-03] MEDS: PARoxetine 20MG TABLET PO SCH (21:39)
[2021-04-04 02:00] VITALS: BP 139/79
[2021-04-04] MEDS: LEVALBUTEROL HFA 45MCG/ACT 15 GM INHALER INH SCH ×4 (03:42→19:56)
[2021-04-04] MEDS: IPRATROPIUM HFA INHALER 12.9 GRAMS (ATROVENT HFA) INH SCH ×4 (03:42→19:56)
[2021-04-04] MEDS: methylPREDNISolone 40MG 1ML VIAL IV SCH ×2 (05:50→18:34)
[2021-04-04] MEDS: LevoFLOXacin 750 MG TABLET PO SCH (05:50)
[2021-04-04] MEDS: SLF 3 ML SYR IV SCH ×3 (05:50→21:19)
[2021-04-04 06:00] VITALS: BP 140/87
[2021-04-04 07:07] LABS: HEMATOCRIT 43.3 % (36.0-47.0); HEMOGLOBIN 14.1 g/dl (12.0-15.5); MEAN CORPUSCULAR HEMOGLOBIN 33.2 pg (27.0-33.0); MEAN CORPUSCULAR HGB CONC 32.6 g/dl (32.0-36.5); MEAN CORPUSCULAR VOLUME 101.9 fl (80.0-96.0); PLATELET COUNT, AUTOMATED 331 10^3/uL (150-450); RED BLOOD COUNT 4.25 10^6/uL (4.00-5.40)
[2021-04-04 07:11] LABS: WHITE BLOOD COUNT 22.9 10^3/uL (4.0-10.0)
[2021-04-04 07:32] LABS: ANISOCYTOSIS 1+; ATYPICAL LYMPH 1 % (0-5); BLAST CELLS 1 % (0-0); EOSINOPHILS 2 % (0-3); LYMPHOCYTES 21 % (16-44); MONOCYTES 4 % (0-5); NEUTROPHILS 71 % (28-66); PLATELET CLUMPS SMALL AMT; PLATELET ESTIMATE NORMAL (NORMAL)
[2021-04-04 07:33] LABS: BLOOD UREA NITROGEN 26 MG/DL (7-18); CALCIUM LEVEL 8.5 MG/DL (8.5-10.1); CARBON DIOXIDE LEVEL 25 MEQ/L (21-32); CHLORIDE LEVEL 108 MEQ/L (98-107); CREATININE FOR GFR 0.63 MG/DL (0.55-1.30); GLOMERULAR FILTRATION RATE > 60.0 (>51); GLUCOSE, FASTING 89 MG/DL (70-100); MAGNESIUM LEVEL 2.3 MG/DL (1.8-2.4); POTASSIUM SERUM 3.6 MEQ/L (3.5-5.1); SODIUM LEVEL 139 MEQ/L (136-145)
[2021-04-04 07:34] LABS: SPHEROCYTES 2+
[2021-04-04] MEDS: ACETYLCYSTEINE 20% 4 ML VIAL (200MG/ML) INH SCH ×2 (07:57→19:56)
[2021-04-04 10:00] VITALS: BP 140/89
[2021-04-04] MEDS: guaiFENesin ER 600 MG TAB PO SCH ×2 (10:05→21:18)
[2021-04-04] MEDS: SENOKOT S TAB PO SCH ×2 (10:05→21:18)
[2021-04-04] MEDS: OMEPRAZOLE 20 MG CAP PO SCH ×2 (10:05→21:18)
[2021-04-04] MEDS: ENOXAPARIN 40MG/0.4ML SYRINGE (J1650 PER 10MG) SC SCH (10:06)
[2021-04-04] MEDS: MIRALAX *UNIT DOSE* 17GM PACKET PO SCH (10:06)
[2021-04-04] MEDS: SODIUM CHLORIDE NASAL 0.65% SPRAY BTL (OCEAN) SCH ×2 (10:06→21:18)
--- NOTE | 2021-04-04 12:01 | IPNPDOC ---
Text Note Date of Service The patient was seen on 04/04/21. NOTE Subjective: Patient is a 56-year-old female with a PMHx of Depression, GERD who presented to emergency room with complaints of progressive shortness of breath. Patient was found to have multifocal pneumonia and was admitted to the hospital service for further evaluation and treatment. Pulmonology was called on consultation. Patient's hospital course has been complicated with a prolonged course of antibiotics. She's completed essentially 2 weeks of antibiotic therapy and still remains fairly hypoxic. Patient was seen and examined at the bedside. Patient is sitting up on the couch, appears comfortable, not in any acute distress. Denies any chest pain, palpitations. Reports cough with productive fomite sputum still reports some shortness of breath with exertion. Denies any nausea, vomiting, abdominal pain or diarrhea. Objective: Vitals (See below) General: Patient is sitting up in chair, appears comfortable, awake, alert, oriented 3 HEENT: AT, NC CVS: +S1S2 Lungs: There appears to be fair air entry bilaterally without any auscultated crackles, wheezing or rhonchi Abdomen: Abdomen remains soft without any distention or tenderness Extremities: No evidence of edema Imaging: Multiple CT scans / XRs prior CTA Chest 03/25: 1. There is no evidence of a pulmonary embolism. 2. Extensive bilateral but predominantly right-sided pneumonia as described above and essentially unchanged in appearance from 03/17/2021 CXR 03/31: Large increasing infiltrates in both lower lobes. Right pleural effusion. Assessment and plan: Shortness of breath / acute hypoxic respiratory failure - likely 2/2 multifactorial etiology - No significant change in breathing / Cough persists - Supplemental oxygen requirement remains unchanged / stable - Patient has had a slight increase in the amount of her supplemental oxygen - Will need to discussed with PFS about outpatient high flow oxygen on discharge Large multifocal pneumonia - Imaging noted above - PCT improving - Blood cultures/sputum cultures have essentially been negative - Chlamydia pneumonia IgG and IgA antibodies were positive - s/p Meropenem / Vancomycin; s/p Fluconazole - c/w Levofloxacin Possibly reactive airway / component of cryptogenic organizing pneumonia / interstitial lung disease - possibly 2/2 autoimmune etiology, possibly 2/2 smoking? - RF negative - ANGELIC negative; will check for titer / pattern (repeat pending) - c/w Solumedrol for now - c/w inhaled therapy as ordered / acapella / incentive spirometry / Guaifenesin / chest PT - Pulmonology on consultation; appreciate their input Nodular pulmonary opacities - Will need repeat imaging after her acute event resolves Leukocytosis - possibly 2/2 reactive etiology 2/2 corticosteroids, possibly 2/2 infectious etiology - Peripheral smear: Leukocytosis with shift to left and rare immature myeloid cells, Mild early macrocytic anemia, Hx of necrotizing pneumonia and steroid intake, both of which can cause leukocytosis, correlation with clinical findings is recommended. - c/w Antibiotics (See above) Constipation - c/w bowel regimen as ordered Insomnia / Anxiety / Depression - c/w Paroxetine GERD - c/w Omeprazole DVT prophylaxis - c/w Lovenox Disposition: - Will need home services on discharge - Patient does not want rehabilitation - Will require supplemental oxygen on discharge; will discuss with PFS on Tuesday about establishing high-flow O2 at home - Awaiting lab work / clinical improvement VS,Fishbone, I+O VS, Fishbone, I+O Laboratory Tests 04/04/21 06:16 Vital Signs Date Time Temp Pulse Resp B/P (MAP) Pulse Ox O2 Delivery O2 Flow Rate FiO2 04/04/21 10:00 6.0 04/04/21 06:00 98.5 88 16 140/87 (104) 86 Nasal Cannula I&O- Last 24 Hours up to 6 AM 04/04/21 06:00 Intake Total 900 ml Output Total 1150 ml Balance -250 ml SHERIN LOAIZA MD Apr 04, 2021 12:01
[2021-04-04 14:00] VITALS: BP 145/88
[2021-04-04 18:00] VITALS: BP 110/73
[2021-04-04 20:07] LABS: ANA (HEP2) Negative (.); ANTINUCLEAR ANTIBODIES DIRECT Negative (Negative)
[2021-04-04] MEDS: PARoxetine 20MG TABLET PO SCH (21:18)
[2021-04-04] MEDS: POLYVINYL ALCOHOL OPHTH SOLN 15 ML(LIQUITEARS) OU PRN (21:19)
[2021-04-04 22:00] VITALS: BP 124/60
[2021-04-05 02:00] VITALS: BP 141/80
[2021-04-05] MEDS: IPRATROPIUM HFA INHALER 12.9 GRAMS (ATROVENT HFA) INH SCH ×4 (03:26→20:26)
[2021-04-05] MEDS: LEVALBUTEROL HFA 45MCG/ACT 15 GM INHALER INH SCH ×4 (03:26→20:23)
[2021-04-05] MEDS: LevoFLOXacin 750 MG TABLET PO SCH (05:08)
[2021-04-05] MEDS: SLF 3 ML SYR IV SCH ×3 (05:08→21:18)
[2021-04-05] MEDS: methylPREDNISolone 40MG 1ML VIAL IV SCH (05:08)
[2021-04-05 06:00] VITALS: BP 140/60
[2021-04-05 06:36] LABS: BASO % 0.1 % (0.0-1.0); HEMATOCRIT 42.5 % (36.0-47.0); HEMOGLOBIN 13.7 g/dl (12.0-15.5); LYMPH # 5.3 10^3/uL (1.5-5.0); LYMPH % 22.9 % (24.0-44.0); MEAN CORPUSCULAR HEMOGLOBIN 32.9 pg (27.0-33.0); MEAN CORPUSCULAR HGB CONC 32.2 g/dl (32.0-36.5); MEAN CORPUSCULAR VOLUME 102.2 fl (80.0-96.0); MONO # 2.1 10^3/uL (0.0-0.8); MONO % 9.3 % (2.0-8.0); NEUTROPHILS # 15.3 10^3/uL (1.5-8.5); PLATELET COUNT, AUTOMATED 298 10^3/uL (150-450); RED BLOOD COUNT 4.16 10^6/uL (4.00-5.40)
[2021-04-05 06:40] LABS: WHITE BLOOD COUNT 22.9 10^3/uL (4.0-10.0)
[2021-04-05 07:00] LABS: BLOOD UREA NITROGEN 26 MG/DL (7-18); CALCIUM LEVEL 8.8 MG/DL (8.5-10.1); CARBON DIOXIDE LEVEL 26 MEQ/L (21-32); CHLORIDE LEVEL 108 MEQ/L (98-107); CREATININE FOR GFR 0.61 MG/DL (0.55-1.30); GLOMERULAR FILTRATION RATE > 60.0 (>51); GLUCOSE, FASTING 75 MG/DL (70-100); MAGNESIUM LEVEL 2.3 MG/DL (1.8-2.4); SODIUM LEVEL 140 MEQ/L (136-145)
[2021-04-05] MEDS: ACETYLCYSTEINE 20% 4 ML VIAL (200MG/ML) INH SCH ×2 (07:53→20:26)
[2021-04-05] MEDS: SENOKOT S TAB PO SCH ×2 (08:09→21:15)
[2021-04-05] MEDS: OMEPRAZOLE 20 MG CAP PO SCH ×2 (08:09→21:15)
[2021-04-05] MEDS: MIRALAX *UNIT DOSE* 17GM PACKET PO SCH (08:09)
[2021-04-05] MEDS: guaiFENesin ER 600 MG TAB PO SCH ×2 (08:09→21:16)
[2021-04-05] MEDS: SODIUM CHLORIDE NASAL 0.65% SPRAY BTL (OCEAN) SCH ×2 (08:10→21:16)
[2021-04-05] MEDS: ENOXAPARIN 40MG/0.4ML SYRINGE (J1650 PER 10MG) SC SCH (08:10)
[2021-04-05 10:00] VITALS: BP 140/77; O2SAT 89
--- NOTE | 2021-04-05 10:14 | IPNPDOC ---
Text Note Date of Service The patient was seen on 04/05/21. NOTE Subjective: Patient is a 56-year-old female with a PMHx of Depression, GERD who presented to emergency room with complaints of progressive shortness of breath. Patient was found to have multifocal pneumonia and was admitted to the hospital service for further evaluation and treatment. Pulmonology was called on consultation. Patient's hospital course has been complicated with a prolonged course of antibiotics. She's completed essentially 2 weeks of antibiotic therapy and still remains fairly hypoxic. Patient was seen and examined at the bedside. Patient was laying in bed, got out of bed and ambulate to the couch currently denies any chest pain or palpitations. Reports that overnight. Her cough was very productive and she was able to clear out many secretions. She denied any nausea, vomiting, abdominal pain or diarrhea. Reports overall that she feels much better today, although she is still on 5 L of nasal cannula high flow oxygen. Objective: Vitals (See below) General: Patient is sitting up in a bed/couch, appears to be comfortable, not in any acute distress, is awake and alert, oriented 3 HEENT: Is atraumatic and normocephalic CVS: +S1S2 Lungs: Mild crackles at bases, fair air entry b/l Abdomen: Nondistended, nontender and soft Extremities: Again lower extremities are without any edema Imaging: Multiple CT scans / XRs prior CTA Chest 03/25: 1. There is no evidence of a pulmonary embolism. 2. Extensive bilateral but predominantly right-sided pneumonia as described above and essentially unchanged in appearance from 03/17/2021 CXR 03/31: Large increasing infiltrates in both lower lobes. Right pleural effusion. Assessment and plan: Shortness of breath - 2/2 acute hypoxic respiratory failure - likely 2/2 multifactorial etiology - Patient reports that subjectively she feels better; however, her supplemental oxygen requirement has not changed - Will need to discussed with PFS about outpatient high flow oxygen on discharge - Anticipate the patient will be discharged home tomorrow with supplemental oxygen at 4-5 L Large multifocal pneumonia - Imaging noted above - PCT improving - Blood cultures/sputum cultures have essentially been negative - Chlamydia pneumonia IgG and IgA antibodies were positive - s/p Meropenem / Vancomycin; s/p Fluconazole - c/w Levofloxacin (Day #6 of 14) Possibly reactive airway / component of cryptogenic organizing pneumonia / interstitial lung disease - possibly 2/2 autoimmune etiology, possibly 2/2 smoking? - RF negative / ANGELIC negative - Will start Prednisone; Will DC Solumedrol for now - c/w inhaled therapy as ordered / acapella / incentive spirometry / Guaifenesin / chest PT - Pulmonology on consultation; appreciate their input Nodular pulmonary opacities - Will need repeat imaging after her acute event resolves Leukocytosis - possibly 2/2 reactive etiology 2/2 corticosteroids, possibly 2/2 infectious etiology - Peripheral smear: Leukocytosis with shift to left and rare immature myeloid cells, Mild early macrocytic anemia, Hx of necrotizing pneumonia and steroid intake, both of which can cause leukocytosis, correlation with clinical findings is recommended. - c/w Antibiotics (See above) Constipation - c/w bowel regimen as ordered Insomnia / Anxiety / Depression - c/w Paroxetine GERD - c/w Omeprazole DVT prophylaxis - c/w Lovenox Disposition: - Will need home services on discharge - Patient does not want rehabilitation - Will require supplemental oxygen on discharge; will discuss with PFS on Tuesday about establishing high-flow O2 at home - Anticipate DC home tomorrow VS,Fishbone, I+O VS, Fishbone, I+O Laboratory Tests 04/05/21 05:48 Vital Signs Date Time Temp Pulse Resp B/P (MAP) Pulse Ox O2 Delivery O2 Flow Rate FiO2 04/05/21 06:00 97.1 88 18 140/60 (86) 90 Nasal Cannula 5.0 I&O- Last 24 Hours up to 6 AM 04/05/21 06:00 Intake Total 820 ml Output Total 550 ml Balance 270 ml SHERIN LOAIZA MD Apr 05, 2021 10:14
[2021-04-05 14:00] VITALS: BP 140/77
[2021-04-05 18:00] VITALS: BP 139/78
[2021-04-05] MEDS ORDERED: predniSONE 20 MG TAB PO SCH (21:00)
[2021-04-05] MEDS: PARoxetine 20MG TABLET PO SCH (21:16)
[2021-04-05] MEDS: POLYVINYL ALCOHOL OPHTH SOLN 15 ML(LIQUITEARS) OU PRN (21:17)
[2021-04-06] MEDS: IPRATROPIUM HFA INHALER 12.9 GRAMS (ATROVENT HFA) INH SCH ×3 (01:04→13:26)
[2021-04-06] MEDS: LEVALBUTEROL HFA 45MCG/ACT 15 GM INHALER INH SCH ×3 (01:05→13:26)
[2021-04-06 02:00] VITALS: BP 155/85
[2021-04-06 06:00] VITALS: BP 142/69
[2021-04-06] MEDS: LevoFLOXacin 750 MG TABLET PO SCH (06:19)
[2021-04-06] MEDS: SLF 3 ML SYR IV SCH ×2 (06:20→14:00)
[2021-04-06 06:36] LABS: BASO % 0.1 % (0.0-1.0); HEMATOCRIT 41.1 % (36.0-47.0); HEMOGLOBIN 13.1 g/dl (12.0-15.5); LYMPH # 2.1 10^3/uL (1.5-5.0); MEAN CORPUSCULAR HEMOGLOBIN 32.7 pg (27.0-33.0); MEAN CORPUSCULAR HGB CONC 31.9 g/dl (32.0-36.5); MEAN CORPUSCULAR VOLUME 102.5 fl (80.0-96.0); MONO # 0.9 10^3/uL (0.0-0.8); MONO % 5.6 % (2.0-8.0); NEUTROPHILS # 12.9 10^3/uL (1.5-8.5); NEUTROPHILS % 80.4 % (36.0-66.0); PLATELET COUNT, AUTOMATED 282 10^3/uL (150-450); RED BLOOD COUNT 4.01 10^6/uL (4.00-5.40); WHITE BLOOD COUNT 16.1 10^3/uL (4.0-10.0)
[2021-04-06 06:53] LABS: BLOOD UREA NITROGEN 22 MG/DL (7-18); CALCIUM LEVEL 7.9 MG/DL (8.5-10.1); CARBON DIOXIDE LEVEL 23 MEQ/L (21-32); CHLORIDE LEVEL 108 MEQ/L (98-107); CREATININE FOR GFR 0.57 MG/DL (0.55-1.30); GLOMERULAR FILTRATION RATE > 60.0 (>51); GLUCOSE, FASTING 123 MG/DL (70-100); MAGNESIUM LEVEL 2.4 MG/DL (1.8-2.4); POTASSIUM SERUM 4.1 MEQ/L (3.5-5.1); SODIUM LEVEL 139 MEQ/L (136-145)
[2021-04-06] MEDS: ACETYLCYSTEINE 20% 4 ML VIAL (200MG/ML) INH SCH (08:18)
[2021-04-06] MEDS ORDERED: PARO20TA3 PO (08:36)
[2021-04-06] MEDS ORDERED: MUCI600T31 PO (08:36)
[2021-04-06] MEDS ORDERED: LEVO750T13 PO (08:36)
[2021-04-06] MEDS ORDERED: PRED20TA PO (08:36)
[2021-04-06] MEDS ORDERED: LEVAINH INH (08:40)
[2021-04-06] MEDS ORDERED: IPRA2IN NEB (08:40)
[2021-04-06] MEDS ORDERED: AIRS1KIT MC (08:40)
[2021-04-06 09:00] VITALS: O2SAT 88
[2021-04-06] MEDS ORDERED: predniSONE 20 MG TAB PO SCH (09:00)
[2021-04-06 10:00] VITALS: BP 139/81
[2021-04-06] MEDS: ENOXAPARIN 40MG/0.4ML SYRINGE (J1650 PER 10MG) SC SCH (10:21)
[2021-04-06] MEDS: MIRALAX *UNIT DOSE* 17GM PACKET PO SCH (10:21)
[2021-04-06] MEDS: OMEPRAZOLE 20 MG CAP PO SCH (10:22)
[2021-04-06] MEDS: SENOKOT S TAB PO SCH (10:22)
[2021-04-06] MEDS: guaiFENesin ER 600 MG TAB PO SCH (10:22)
[2021-04-06] MEDS: SODIUM CHLORIDE NASAL 0.65% SPRAY BTL (OCEAN) SCH (10:23)
[2021-04-06] MEDS ORDERED: VENTAER INH (12:33)
--- NOTE | 2021-04-06 13:14 | DS.PDOC ---
Discharge Summary General Date of Admission Feb 24, 2021 at 16:12 Date of Discharge 03/27/2021 Discharge Summary PROCEDURES PERFORMED DURING STAY: [None]. ADMITTING DIAGNOSES / DISCHARGE DIAGNOSES: Shortness of breath - 2/2 acute hypoxic respiratory failure - likely 2/2 multifactorial etiology Large multifocal pneumonia Possibly reactive airway / component of cryptogenic organizing pneumonia / interstitial lung disease - possibly 2/2 autoimmune etiology, possibly 2/2 smoking? Nodular pulmonary opacities Leukocytosis - possibly 2/2 reactive etiology 2/2 corticosteroids, possibly 2/2 infectious etiology Constipation Insomnia / Anxiety / Depression GERD DVT prophylaxis COMPLICATIONS/CHIEF COMPLAINT: Shortness of breath HISTORY OF PRESENT ILLNESS: Patient is a 56-year-old female with a PMHx of Depression, GERD who presented to emergency room with complaints of progressive shortness of breath. Patient was found to have multifocal pneumonia and was admitted to the hospital service for further evaluation and treatment. Pulmonology was called on consultation. Patient's hospital course has been complicated with a prolonged course of antibiotics. She's completed essentially 2 weeks of antibiotic therapy and still remains fairly hypoxic. Patient was seen and examined at the bedside. Currently patient reports that her breathing has remained essentially unchanged and is that she is able to move around without any difficulty. Reports no significant cough, but does report that she has been having "sputum draining." Patient denies any chest pain or palpitations. Has not experienced any nausea, vomiting, pain of her abdomen, constipation, diarrhea. HOSPITAL COURSE: Shortness of breath - 2/2 acute hypoxic respiratory failure - likely 2/2 multifactorial etiology - Patient notes that her breathing is doing better. She remains stable on 5 L of high flow nasal cannula oxygen - Will continue with high flow nasal cannula oxygen on discharge; discussed with Pulmonary - Will have outpatient follow-up with primary care provider, and pulmonology within the next 7 days Large multifocal pneumonia - PCT improving - Blood cultures/sputum cultures have essentially been negative - Chlamydia pneumonia IgG and IgA antibodies were positive - s/p Meropenem / Vancomycin; s/p Fluconazole - c/w Levofloxacin (Day #7 of 14); will continue antibiotic course as an outpatient - Will have outpatient follow-up with primary care provider, and pulmonology within the next 7 days Possibly reactive airway / component of cryptogenic organizing pneumonia / interstitial lung disease - possibly 2/2 autoimmune etiology, possibly 2/2 smoking? - RF negative / ANGELIC negative - c/w Prednisone daily - will provide fixed dosing until seen by pulmonology as an outpatient; s/p Solumedrol - c/w inhaled therapy as ordered / acapella / incentive spirometry / Guaifenesin / chest PT - Pulmonology on consultation; appreciate their input - Will have outpatient follow-up with primary care provider, and pulmonology within the next 7 days Nodular pulmonary opacities - Will need repeat imaging after her acute event resolves - Will have outpatient follow-up with primary care provider, and [facility] Leukocytosis - possibly 2/2 reactive etiology 2/2 corticosteroids, possibly 2/2 infectious etiology - Slight improvement noted - Peripheral smear: Leukocytosis with shift to left and rare immature myeloid cells, Mild early macrocytic anemia, Hx of necrotizing pneumonia and steroid intake, both of which can cause leukocytosis, correlation with clinical findings is recommended. - c/w Antibiotics (See above) Constipation - c/w bowel regimen as ordered Insomnia / Anxiety / Depression - c/w Paroxetine at adjusted dose GERD - c/w Omeprazole DVT prophylaxis - c/w Lovenox DISCHARGE MEDICATIONS: Please see below. ALLERGIES: Please see below. PHYSICAL EXAMINATION ON DISCHARGE: Vitals (See below) General: Patient is sitting up in a bed/couch, appears to be comfortable, not in any acute distress, is awake and alert, oriented 3 HEENT: Atraumatic and normocephalic CVS: +S1S2 Lungs: Air entry appears to be fair bilaterally. There does not appear to be any significant crackles or wheezing Abdomen: Again, her abdomen remains soft without any appreciated distention or tenderness Extremities: Lower extremities do not reveal any significant edema LABORATORY DATA: Please see below. IMAGING: CTA Chest 03/25: 1. There is no evidence of a pulmonary embolism. 2. Extensive bilateral but predominantly right-sided pneumonia as described above and essentially unchanged in appearance from 03/17/2021 CXR 03/31: Large increasing infiltrates in both lower lobes. Right pleural effusion. ACTIVITY: [As tolerated]. DISCHARGE PLAN: Follow-up with primary care provider, pulmonology and interstitial lung disease specialist in [place] Remain compliant with treatment plan and medications Return to the ER if you experience any problems DISPOSITION: Home with services DISCHARGE CONDITION: [Stable]. TIME SPENT ON DISCHARGE: 35 minutes. Vital Signs/I&Os Vital Signs Date Time Temp Pulse Resp B/P (MAP) Pulse Ox O2 Delivery O2 Flow Rate FiO2 04/06/21 10:00 97.9 121 20 139/81 (100) 89 Nasal Cannula 5.0 I&O- Last 24 Hours up to 6 AM 04/06/21 05:59 Intake Total 630 ml Output Total 801 ml Balance -171 ml Laboratory Data Labs 24H Laboratory Tests 2 04/06/21 06:18: Immature Granulocyte % (Auto) 0.9, Neutrophils (%) (Auto) 80.4H, Lymphocytes (%) (Auto) 13.0L, Monocytes (%) (Auto) 5.6, Eosinophils (%) (Auto) 0.0, Basophils (%) (Auto) 0.1, Neutrophils # (Auto) 12.9H, Lymphocytes # (Auto) 2.1, Monocytes # (Auto) 0.9H, Eosinophils # (Auto) 0.0, Basophils # (Auto) 0.0, Nucleated Red Blood Cells % (auto) 0.0, Anion Gap 8, Glomerular Filtration Rate > 60.0, Calcium Level 7.9L, Magnesium Level 2.4 CBC/BMP Laboratory Tests 04/06/21 06:18 Discharge Medications Scheduled Famotidine (Famotidine) 40 Mg Tablet, 40 MG PO BID, (Reported) Guaifenesin (Mucinex) 600 Mg Tab.er.12h, 600 MG PO BID Ipratropium [place] (Ipratropium [place]) 0.2 Mg/1 Ml Solution, 1 VIAL NEB QID Levofloxacin (Levofloxacin) 750 Mg Tablet, 750 MG PO DAILY@06 Loratadine (Loratadine) 10 Mg Tablet, 10 MG PO DAILY, (Reported) Omeprazole (Omeprazole) 20 Mg Capsule.dr, 20 MG PO BID, (Reported) Paroxetine HCl (Paroxetine HCl) 20 Mg Tablet, 20 MG PO QHS Prednisone (Prednisone) 20 Mg Tablet, 40 MG PO DAILY Scheduled PRN Albuterol Sulfate (Ventolin Hfa) 18 Gm Hfa.aer.ad, 2 PUFF INH Q4-6HP PRN for wheezing Montelukast Sodium (Montelukast Sodium) 10 Mg Tablet, 10 MG PO DAILY PRN for ALLERGIES, (Reported) Allergies Coded Allergies: ENVIROMENTAL (Verified Allergy, Unknown, 02/24/21) SHERIN LOAIZA MD Apr 06, 2021 13:14
== END 2021-04-06 16:40 | disposition home health service (06) | DRG 139 ==
LOC: M ED 14:20 → M ED INP 16:12 → M MS5PR 22:30 → M PCU 02-25 05:30 → M MSPAV 03-13 15:56
PROVIDERS: ADMIT Family Medicine; ATTEND Internal Medicine
DX: J16.0 Chlamydial pneumonia (principal); J96.01 Acute respiratory failure with hypoxia; J84.116 Cryptogenic organizing pneumonia; J90 Pleural effusion, not elsewhere classified; J44.1 Chronic obstructive pulmonary disease with (acute) exacerbation; K21.9 Gastro-esophageal reflux disease without esophagitis; G47.00 Insomnia, unspecified; F41.9 Anxiety disorder, unspecified; F32.9 Major depressive disorder, single episode, unspecified; K59.00 Constipation, unspecified; R91.8 Other nonspecific abnormal finding of lung field; Z79.899 Other long term (current) drug therapy; F17.200 Nicotine dependence, unspecified, uncomplicated; D72.829 Elevated white blood cell count, unspecified

== ENCOUNTER → 2021-02-24 | Outpatient (CLI) | payer BC ==
[~2021-02-24] MED LIST: FAMO40TA3 PO; LORA-674 PO; MONT10TA10 PO; OMEP-218 PO; PARO20TA3 PO
--- NOTE | 2021-02-24 14:23 | REP ---
INDICATION: ACUTE BRONCHITIS COMPARISON: None. TECHNIQUE: PA and lateral. FINDINGS: Right lower lobe and right middle lobe as well as possible medial left lower lobe consolidations consistent with multifocal pneumonia. Small effusion cannot be excluded as well. IMPRESSION: Multifocal pneumonia and possible right pleural effusion. <Electronically signed by Michael Bills > 02/24/21 [id number]
== END ==
LOC: M WUC 12:47
PROVIDERS: ATTEND Physician Assistant
DX: J18.9 Pneumonia, unspecified organism (principal); R91.8 Other nonspecific abnormal finding of lung field; J20.9 Acute bronchitis, unspecified; J06.9 Acute upper respiratory infection, unspecified

== ENCOUNTER → 2021-04-21 | Outpatient (REF) | payer BC, MEDICAID ==
[~2021-04-21] MED LIST changes: +AIRS1KIT MC; +IPRA2IN NEB; +LEVAINH INH; +LEVO750T13 PO; -MONT10TA10 PO; +MONT10TA97 PO; +MUCI600T31 PO; +PRED20TA PO; +VENTAER INH
== END ==
LOC: M SFHCADAM 09:50
PROVIDERS: ATTEND Family Medicine
DX: J16.0 Chlamydial pneumonia (principal)

== ENCOUNTER → 2021-04-23 | Outpatient (CLI) | payer BC, MEDICAID ==
[~2021-04-23] MED LIST changes: +MONT10TA10 PO; -MONT10TA97 PO
--- NOTE | 2021-04-25 18:27 | ECHO ---
ECHOCARDIOGRAM DATE OF PROCEDURE: 04/23/2021 Age: 56 Gender: Female Height: 155 cm Weight: 55 kg PATIENT LOCATION: Outpatient. REFERRING PROVIDER: Benedict Olvera M.D. REASON FOR THE TESTING: Chronic respiratory failure, shortness of breath. MEASUREMENTS: 2D Measurements: IVS 0.8 cm LV 4.6 cm LVPW 0.6 cm LA 2.6 cm Aorta 2.9 cm Doppler Measurements: Peak velocity across the aortic valve 1.5 m/sec Peak velocity across the LVOT 1.1 m/sec Mitral E 0.86 Mitral A 0.62 with a ratio of 1.1 2D COMMENTS: 1. Normal left ventricular size, wall thickness and normal global left ventricular systolic function with a hyperdynamic left ventricle. The estimated left ventricular systolic ejection fraction is 65-70%. 2. Normal left atrium. Normal right atrium and right ventricle. There appears to be findings consistent with right ventricular hypertrophy. Right ventricular systolic function appeared to be normal. 3. The atrial septum appeared to be normal without evidence of defect or shunt. 4. Normal aortic root. 5. No pericardial effusion seen. 6. Mildly calcified aortic valve with normal leaflet excursion. Mildly calcified mitral annulus with normal anterior mitral valve leaflet motion. Normal tricuspid valve. The pulmonic valve and proximal pulmonary artery branches were not well visualized. 7. The inferior vena cava was not well visualized. BUBBLE STUDY: Bubble study done with agitated normal saline. It did not reveal passage of bubble from the right heart chambers to the left heart chambers, but it was a poor quality data. DOPPLER: No significant valvular abnormalities detected. Abnormal relaxation pattern was noted across the mitral valve annulus consistent with features of grade 2 left ventricular diastolic dysfunction. IMPRESSION: 1. Normal global left ventricular systolic function with a hyperdynamic left ventricle. There are some features of grade 2 left ventricular diastolic dysfunction. 2. Aortic valve sclerosis without stenosis or aortic regurgitation. 3. As related, mitral annulus calcification. No evidence of mitral regurgitation or stenosis. 4. Negative bubble study for intraconduction, but it was poor quality. 5. Patient was in normal sinus rhythm during the test.
== END ==
LOC: M CARPUL 13:23
PROVIDERS: ATTEND Family Medicine
DX: J96.11 Chronic respiratory failure with hypoxia (principal)

== ENCOUNTER → 2021-05-07 | Outpatient (CLI) | payer BC, MEDICAID ==
--- NOTE | 2021-05-07 15:58 | REP ---
INDICATION: RENAL CYST COMPARISON: None TECHNIQUE: Real time dubois scale ultrasound examination using curved array transducer. FINDINGS: Right kidney measures 12.5 x 4.7 x 3.9 cm and includes 7 mm nonobstructing upper pole calculus along with 1.5 cm lower pole complex cyst with partial mural calcification along with 7 x 5 x 6 mm lower pole cyst. No hydronephrosis. Bladder is grossly unremarkable currently measuring 6.5 x 4.2 x 3.6 cm. Left kidney measures 11.6 x 4.6 x 5.8 cm with 1.8 cm complex upper pole cyst and 2.4 cm relatively benign appearing lower pole cyst. Small nonobstructing intrarenal calculi cannot be excluded. No hydronephrosis. IMPRESSION: 1. Presumed bilateral complex cysts. Consider pre and postcontrast CT of the abdomen for follow-up. 2. Small bilateral nephroliths cannot be excluded. <Electronically signed by Michael Bills > 05/07/21 [id number]
== END ==
LOC: M RAD 13:05
PROVIDERS: ATTEND Family Medicine
DX: N28.1 Cyst of kidney, acquired (principal)